=== PATIENT | male | born 1960 | race Caucasian/White ===

== ENCOUNTER → 2019-10-24 09:03 | Outpatient (REF) | payer OTHER, SELFPAY | LOC: ANHLAB 09:03 | PROVIDERS: PCP Internal Medicine; Visit Provider Nurse Practitioner | DX: R22.9 Localized swelling, mass and lump, unspecified (principal); L72.0 Epidermal cyst | CPT/HCPCS: 88304 ==

== ENCOUNTER 2019-11-09 13:03 | Outpatient (CLI) | payer OTHER, SELFPAY ==
[2019-11-09 13:49] LABS: Basophils Percent Auto 0.3 % (0.2-1.2); Eosinophils Absolute Auto 0.2 K/mm3 (0-0.3); Eosinophils Percent Auto 2.2 % (0-4.4); Hematocrit 40.8 % (42.0-52.0); Hemoglobin 13.3 g/dL (14.0-18.0); Immature Granulocyte Absolute 0.05 K/mm3 (0.00-0.031); Immature Granulocyte Percent A 0.5 % (0-0.5); Lymphocytes Absolute Auto 1.08 K/mm3 (0.9-3.2); Lymphocytes Percent Auto 11.6 % (18.3-44.2); Mean Corpuscular HGB Conc 32.6 g/dl (32-36); Mean Corpuscular Volume 91.9 fl (80-100); Mean Platelet Volume 11.1 fl (7.4-10.4); Monocytes Absolute Auto 0.8 K/mm3 (0.1-0.6); Monocytes Percent Auto 8.8 % (2.6-8.5); Neutrophils Absolute Auto 7.1 K/mm3 (1.3-6.7); Neutrophils Percent Auto 76.6 % (45.5-73.1); Platelet Count Result 231 k/mm3 (150-375); Red Blood Count 4.44 M/mm3 (4.6-6.20); Red Cell Distribution Width 15.1 % (11.5-14.5); White Blood Count 9.3 K/mm3 (4.5-10.0)
[2019-11-09 14:00] LABS: Alanine Aminotransferase 32 U/L (4-50); Albumin Level 4.3 g/dL (3.5-5.1); Alkaline Phosphatase 68 U/L (38-126); Aspartate Amino Transferase 31 U/L (17-59); Bilirubin,Total 0.8 mg/dL (0.2-1.3); Blood Urea Nitrogen 12 mg/dL (9-20); Calcium 9.6 mg/dL (8.4-10.2); Carbon Dioxide 32 mmol/L (22-30); Chloride 101 mmol/L (98-107); Cholesterol 136 mg/dL (0-200); Estimated Glomerular Filt Rate 56; Glucose 102 mg/dL (75-110); HDL Direct 36 mg/dL; Potassium 3.7 mmol/L (3.4-5.0); Sodium 140 mmol/L (137-145); Triglycerides 66 mg/dL (<150)
[2019-11-09 14:30] LABS: LDL Cholesterol Direct 97 mg/dL
[2019-11-09 16:19] LABS: Hemoglobin A1C 5.6 % (<5.7)
[2019-11-12 06:09] LABS: Homocysteine 15.1 umol/L (<11.4)
[2019-11-13 02:35] LABS: Testosterone Total 759 ng/dL (250-1100)
[2019-11-14 13:36] LABS: Vitamin D 1,25 (OH)2 Total 57 pg/mL (18-72); Vitamin D2 1,25 (OH)2 <8 pg/mL; Vitamin D3 1,25 (OH)2 57 pg/mL
--- NOTE | 2019-11-20 12:49 | PM.PNGS ---
Progress Note: A&P Assessment and Plan (1) Testicular/scrotal pain: Status: Chronic Assessment and Plan: Left scrotal mass not clearly a hernia by my exam. . I tried to transilluminate this and it did seem to transilluminate consistent with a large hydrocele. Ultrasound did not show this. I have recommended to the emergency room physician that the patient see urology for evaluation. If they feel this is just a a fatty herniation, I will be happy to see the patient back in the office. His exam is not consistent with that from my evaluation this morning. Subjective Subjective Date/Time Seen: 11/20/19 12:49 patient seen in the emergency room. About 2 weeks ago he had some dysuria which went away. He has noticed pain and swelling in the left scrotum. . The pain is mostly just above the left testicle. He came to the emergency room where a CT scan and a scrotal ultrasound were done. The CT showed a fat containing left inguinal hernia that seemed to extend down into the scrotum. The ultrasound also suggested fatty tissue extending down into the scrotum. Also seen was a small hydrocele and a varicocele. I did a right inguinal hernia on the patient in the distant past. He has had no problems with that. A fat containing right inguinal hernia was also noted on CT scan. The patient was seen in consultation while in the emergency room. . Exam : Penis: Yes normal penis Scrotum: Hydrocele present on the left ( Seems to have a large left hydrocele. Tender above the testicle.), no inguinal hernias ( No bulge associated with coughing. No hernia felt on exam.) and scrotal swelling on the left Testes: Testes normal
== END 2019-11-09 13:04 | disposition home or self-care (01) ==
LOC: ANHLAB 13:05
PROVIDERS: PCP Internal Medicine; Visit Provider Internal Medicine
DX: R79.9 Abnormal finding of blood chemistry, unspecified (principal); I10 Essential (primary) hypertension; R79.89 Other specified abnormal findings of blood chemistry; E55.9 Vitamin D deficiency, unspecified; E29.1 Testicular hypofunction; E78.2 Mixed hyperlipidemia
CPT/HCPCS: 36415; 80053; 80061; 82248; 82542; 82652; 83036; 83090; 84403; 85025

== ENCOUNTER 2019-11-20 07:02 | Emergency (ER) | payer OTHER, SELFPAY ==
[2019-11-20] VITALS (9 sets, daily range): BP systolic 133–204; BP diastolic 79–114; PULSE 55–67; RESP 15–18; TEMP 36.9; O2SAT 94–100
--- NOTE | ~2019-11-20 | CT_ITS ---
EXAMINATION: CT abdomen pelvis w con EXAM DATE: 11/20/2019 07:59 INDICATION: Left inguinal hernia. TECHNIQUE: Spiral CT of the abdomen and pelvis was performed following intravenous injection of 100 m L Omnipaque 350. Axial, coronal and sagittal images were reviewed. The dose-length product (DLP) fo r this examination was 1761.19 mGy-cm. The exposure was tailored according to patient size (auto mA exposure control), and iterative reconstruction (ASIR) was used as additional dose reduction techniqu e. There is no prior study for comparison. FINDINGS: Scattered hypodensities up to 1 cm likely cysts. Spleen, pancreas, adrenal glands are unrem arkable. Gallbladder is unremarkable. No biliary obstruction. Portal and splenic veins are patent. Kidneys enhance symmetrically. There is no hydronephrosis. There is a right renal cyst measuring 4 cm. The prostate is unremarkable. The bladder is unremarkable. There is a retroperitoneal lymph n ode between the spine and the aorta measuring 9 x 14 mm, upper limits of normal in size, unchanged co mpared to prior study. There is mild scattered arteriosclerotic disease. Small umbilical and bilater al inguinal fat-containing hernias, larger on the left. The appendix is normal. There is small sliding gastroesophageal hiatal hernia. There is expected am ount of colonic stool. There is moderate colonic diverticulosis. There is no adjacent inflammatory c hange to suggest diverticulitis. No free intraperitoneal gas. The heart is normal in size. There are no pericardial or pleural effusions. The lung bases are unremarkable. There are no osteoblastic or osteolytic lesions identified. IMPRESSION: 1. No acute intra-abdominal findings. 2. Inguinal, umbilical small fat-containing hernias. 3. Moderate colonic diverticulosis. 4. Stable retroperitoneal lymph node upper limits of normal in size Reviewed, dictated and finalized at location A.
--- NOTE | ~2019-11-20 | US_ITS ---
EXAMINATION: US scrotum doppler DATE: 11/20/2019 09:23 INDICATION: Painful scrotal mass TECHNIQUE: Testicular sonogram utilizing grayscale and Doppler COMPARISON: CT dated 11/20/2019 FINDINGS: The right testis measures 4.3 x 2.7 x 4.3 cm. The left testis measures 3.6 x 2.4 x 2.5 cm. Symmetric normal grayscale appearance to both testes. There is normal vascular flow to both testes. 10 mm anech oic cyst at the head of the right epididymis. The right epididymis is otherwise normal with normal va scular flow. The left epididymis is suboptimal visualized over the visualized portion of the epididym is is unremarkable. Prominent left varicocele with vessels measuring up to 4 mm in diameter. Small ri ght and very small left hydroceles. There is edema interspersed amongst increased amount of fat at th e caudal aspect of the inguinal canal extending to the margin of the left testis corresponding to a f at-containing left inguinal hernia on prior CT. On prior CT there is also a small fat-containing righ t inguinal hernia which does not extend caudally to the region of imaging on ultrasound. IMPRESSION: 1. 1 cm right epididymal cyst. Otherwise normal bilateral testes and epididymides. 2. Moderate-sized fat-containing left inguinal hernia. Normal testes. 3. Left varicocele. 4. Small right and very small left hydroceles. Reviewed, dictated and finalized at location A. IMPRESSION: 1. 1 cm right epididymal cyst. Otherwise normal bilateral testes and epididymid es. 2. Moderate-sized fat-containing left inguinal hernia. Normal testes. 3. Left varicocele. 4. Small right and very small left hydroceles.
--- NOTE | 2019-11-20 07:33 | ED.ABDPAIN ---
HPI - Abdominal Pain General Chief Complaint: Abdominal Pain Stated Complaint: hernia Time Seen by Provider: 11/20/19 07:23 History of Present Illness HPI narrative: Mass in the left side of his scrotum for the past 3 days. Constant. Moderate pain. worse with straining. Associated with mild intermittent nausea. He had a previous right inguinal hernia s/p repair, which caused him similar symptoms. No abdominal pain, vomiting, diarrhea, distension. He is on pradaxa for a-fib Related Data Home Medications Medication Instructions Recorded Confirmed albuterol sulfate 90 mcg/actuation 1 puff INHALATION Q4H PRN 09/04/19 aerosol inhaler fluticasone furoate 200 1 inhalation INHALATION DAILY 09/04/19 mcg-vilanterol 25 mcg/dose inhalation powder fluticasone propionate 50 2 spray NASAL DAILY 09/04/19 mcg/actuation nasal spray,suspension furosemide 80 mg tablet 80 mg PO QAM 09/04/19 hydralazine 100 mg tablet 100 mg PO TID 09/04/19 nebivolol 10 mg tablet 10 mg PO DAILY 09/04/19 potassium chloride 20 mEq 20 meq PO DAILY 09/04/19 tablet,extended release rosuvastatin 10 mg tablet 10 mg PO DAILY 09/04/19 valsartan 320 mg tablet 320 mg PO DAILY 09/04/19 Allergies Allergy/AdvReac Type Severity Reaction Status Date / Time latex Allergy Unknown Unknown Verified 10/31/19 10:24 adhesive AdvReac Mild Other Verified 10/31/19 10:24 Review of Systems Review of Systems: All systems reviewed & are unremarkable except as noted in HPI and below Constitutional: Constitutional: Denies fever(s) Eyes: Eyes: Reports no additional eye complaints ENT: Denies sore throat Cardiovascular: Cardiovascular: Denies chest pain Respiratory: Respiratory: Denies dyspnea Gastrointestinal: Gastrointestinal: Denies abdominal pain, Denies constipation, Denies diarrhea, Reports nausea and Denies vomiting Genitourinary: Genitourinary: Denies hematuria and Denies dysuria Neurologic: Denies dizziness and Denies weakness Endocrine: Endocrine: Denies fatigue Hematologic/Lymphatic: Hematologic/Lymphatic: Denies easy bleeding and Denies easy bruising PMFSH Past Medical History Medical History A-fib Abnormal finding of blood chemistry, unspecified Abscess Benign essential hypertension Body mass index (BMI) 40.0-44.9, adult Conn's syndrome Elevated homocysteine Encounter for routine adult health examination without abnormal findings Encounter for special screening examination for neoplasm of prostate Hearing loss History of CVA (cerebrovascular accident) History of kidney stones History of reduction of nasal fracture Hx of colonic polyps Hyperlipidemia Hypogonadism in male On group home drug therapy Other iron deficiency anemias Vitamin D deficiency Surgical History Surgical History History of hernia repair History of knee surgery bilateral Family History Family History Father Family history of obesity Hypertension Mother Family history of malignant neoplasm of breast in first degree relative Social History Social History Smoking status: Never smoker Alcohol intake: current Gender identity (if verbalized by the patient): Male Exam Const: General: no acute distress and alert; No ill appearing Nutritional Appearance: obese Orientation/consciousness: patient oriented x3 HENMT: Head: normal to inspection Neck: Neck: normal visual inspection Resp: Effort & Inspection: normal respiratory effort Auscultation: clear to auscultation bilaterally Cardio: Rate: regular rate Rhythm: regular rhythm GI: Inspection: non-distended GI Palp: Yes Soft to palpation and No Tenderness to palpation present (GI) : Other: Tender left sided scrotal mass with mild hyperemia of the affected side
[2019-11-20 07:38] LABS: Basophils Percent Auto 0.3 % (0.2-1.2); Eosinophils Absolute Auto 0.2 K/mm3 (0-0.3); Eosinophils Percent Auto 1.6 % (0-4.4); Hematocrit 41.2 % (42.0-52.0); Hemoglobin 13.6 g/dL (14.0-18.0); Immature Granulocyte Absolute 0.03 K/mm3 (0.00-0.031); Immature Granulocyte Percent A 0.3 % (0-0.5); Lymphocytes Percent Auto 10.4 % (18.3-44.2); Mean Corpuscular Hemoglobin 29.6 pg (26-34); Mean Corpuscular Volume 89.8 fl (80-100); Mean Platelet Volume 10.9 fl (7.4-10.4); Monocytes Percent Auto 9.3 % (2.6-8.5); Neutrophils Absolute Auto 8.3 K/mm3 (1.3-6.7); Neutrophils Percent Auto 78.1 % (45.5-73.1); Platelet Count Result 243 k/mm3 (150-375); Red Blood Count 4.59 M/mm3 (4.6-6.20); Red Cell Distribution Width 14.7 % (11.5-14.5); White Blood Count 10.6 K/mm3 (4.5-10.0)
[2019-11-20 07:43] LABS: Add Urine Microscopic? YES; Appearance Urine Clear (Clear); Bacteria Urine Trace /hpf; Bilirubin Urine Negative (Negative); Blood Urine Negative (Negative); Color Urine Yellow (Yellow); Glucose Urine UA Negative (Negative); Ketones Urine Negative (Negative); Leukocyte Esterase Ur 2+ LEU/UL (Negative); Mucus Urine Rare /lpf; Nitrate Urine Negative (Negative); Protein Urine 1+ mg/dL (Negative); Specific Grav Ur 1.014 (1.001-1.035); Squamous Epithelial Cell Urine Rare /hpf (Few); Urobilinogen Urine Negative mg/dL (<2.0); WBC Urine 31-50 /hpf
[2019-11-20 07:49] LABS: Alanine Aminotransferase 27 U/L (4-50); Albumin Level 4.4 g/dL (3.5-5.1); Alkaline Phosphatase 86 U/L (38-126); Aspartate Amino Transferase 27 U/L (17-59); Bilirubin,Total 0.9 mg/dL (0.2-1.3); Blood Urea Nitrogen 15 mg/dL (9-20); Carbon Dioxide 27 mmol/L (22-30); Chloride 104 mmol/L (98-107); Estimated CRCL calculation 65 ml/min; Estimated Glomerular Filt Rate 52; Glucose 108 mg/dL (75-110); Lipase 104 U/L (23-300); Potassium 3.3 mmol/L (3.4-5.0); Sodium 139 mmol/L (137-145)
--- NOTE | 2019-11-20 07:56 | PC.NURSE ---
PT IN CT AT THIS TIME.
[2019-11-20 07:57] LABS: Estimated CRCL calculation 65 ml/min; Estimated Glomerular Filt Rate 52
[2019-11-20 07:59] LABS: Lactic Acid Reflex 1.1 mmol/L (0.7-2.1)
[2019-11-20 08:06] LABS: INR 1.3; Prothrombin Time 15.7 Seconds (11.1-14.7)
[2019-11-20 08:07] LABS: Partial Thromboplastin Time 51.8 SECONDS (22.3-36.8)
[2019-11-20] MEDS: ONDANSETRON INJ 4 MG/2 ML VIAL IV PUSH (08:29)
--- NOTE | 2019-11-20 11:29 | PM.CNGS ---
Assessment and Plan Assessment and plan (1) Testicular/scrotal pain: Status: Chronic Assessment and Plan: The pain does not seem to be due to the left inguinal hernia noted on imaging, which is difficult to even appreciate on exam. He seems to have more significant tenderness above the testes near the epididymis and spermatic cord on my exam, which should be further evaluated by Urology. I have discussed the patient's case with Dr. Cyr, who will be evaluating the patient separately and recommended Urology to see the patient. I discussed this all with Dr. Sorenson. (2) Left inguinal hernia: Code(s): K40.90 - Unilateral inguinal hernia, without obstruction or gangrene, not specified as recurrent Status: Acute Assessment and Plan: Difficult to appreciate on exam due to the scrotal swelling and induration near the spermatic cord. This does not appear to be the cause of the patient's pain or the area of tenderness. After my exam, I do not believe the left inguinal hernia seen on the CT scan and ultrasound is what is causing his pain. I discussed this with Dr. Cyr who recommended Urology see this patient as well as he will be evaluating him independently to give his recommendations. The patient can follow-up with Dr. Cyr as an outpatient for the left inguinal hernia if this pain is felt to be due to herniation. No indication for urgent surgical intervention at this time. (3) Anticoagulant long-term use: Code(s): Z79.01 - care home (current) use of anticoagulants Status: Acute Assessment and Plan: On Pradaxa. Last taken last night around 9 pm. (4) A-fib: Qualifiers: Atrial fibrillation type: unspecified Qualified Code(s): I48.91 - Unspecified atrial fibrillation Code(s): I48.91 - Unspecified atrial fibrillation Status: Acute (5) Body mass index (BMI) 40.0-44.9, adult: Code(s): Z68.41 - Body mass index (BMI) 40.0-44.9, adult Status: Acute (6) History of CVA (cerebrovascular accident): Code(s): Z86.73 - Personal history of transient ischemic attack (TIA), and cerebral infarction without residual deficits Status: Acute (7) Chronic diastolic heart failure: Code(s): I50.32 - Chronic diastolic (congestive) heart failure Status: Acute (8) Obstructive sleep apnea treated with continuous positive airway pressure (CPAP): Code(s): G47.33 - Obstructive sleep apnea (adult) (pediatric); Z99.89 - Dependence on other enabling machines and devices Status: Acute History of Present Illness Consult details Consult date: 11/23/19 Reason for consult: other (Left inguinal hernia) Requesting physician: Juanjo Sorenson MD Narrative: This is a 59-year-old male with a history of CVA, atrial fibrillation on chronic anticoagulation therapy, hypertension, hyperlipidemia, and HERI, who presented to the emergency department today with complaints of left scrotal pain and swelling. The patient reports his symptoms started about 3-4 days ago when he noticed a gradual onset left-sided scrotal discomfort. He states that he also began to notice mostly left-sided scrotal swelling. He denies any recent heavy lifting or increase in activities. It was not a sudden onset of pain. The pain continued to worsen and is aggravated by leg movement. Pain does not change upon standing. He states it was difficult to sleep last night because he is a side sleeper and was uncomfortable throughout the night. He then decided to present to the emergency department today for further evaluation. CT scan of the abdomen and pelvis showed bilateral small fat containing inguinal hernias and an umbilical fat containing hernia. No acute intra-abdominal findings. Ultrasound of the scrotum shows a 1 cm right epididymal cyst, moderate-sized fat containing left inguinal hernia that does extend to the caudal aspect of the inguinal canal to the left testes, left varicocele, and sma
--- NOTE | 2019-11-20 13:09 | WPDURCON ---
Assessment and Plan Assessment and plan (1) Epididymitis: Code(s): N45.1 - Epididymitis Status: Acute Assessment and Plan: Patient to continue Levaquin x at least 10 days, then follow up in our office in two weeks. Use scrotal support and take NSAIDs or Tylenol for pain. Urology Consult Note HPI Date Seen: 11/20/19 Primary Care Provider: Cordell House MD Consult Narrative Narrative: Becky Jin is a 59 year old male who presented to the ER today with acute onset three days ago of a painful, edematous scrotal mass and nausea. He has a history of a right inguinal hernia repair, however the pain and edema are on the left side. He has a WBC of 10.6, creatinine of 1.40, urine culture is pending. He was given Levaquin and evaluated by general surgery to rule out a hernia, they denied a left sided inguinal hernia. His CT scan shows a small fat containing inguinal hernia and US of scrotum shows small bilateral hydroceles and an epidymal head cyst on the right measuring 1cm. Patient denies fever, chills, nausea, vomiting or radiating pain into the abdomen. He states that he has never had this before. Review of Systems Cardiovascular: Cardiovascular: Reports no additional cardiovascular complaints Respiratory: Respiratory: Reports no additional respiratory complaints Gastrointestinal: Gastrointestinal: Denies abdominal pain, Reports nausea and Denies vomiting Genitourinary: Genitourinary: Denies hematuria, Denies dysuria, Denies flank pain, Reports scrotal swelling, Reports testicular pain and Denies urinary frequency [facility] Past Medical History Medical History A-fib Chronic atrial fibrillation Abscess Perineal abscess status post I&D in August of 2018 Benign essential hypertension Body mass index (BMI) 40.0-44.9, adult Chronic diastolic heart failure Conn's syndrome Elevated homocysteine Hearing loss History of CVA (cerebrovascular accident) August of 2018 History of kidney stones History of reduction of nasal fracture Hx of colonic polyps Hyperlipidemia Hypogonadism in male Obstructive sleep apnea treated with continuous positive airway pressure (CPAP) Other iron deficiency anemias Vitamin D deficiency Surgical History Surgical History History of hernia repair Open right inguinal hernia repair with mesh estimated in 2004 History of knee surgery bilateral Family History Family History Father Family history of obesity Hypertension Mother Family history of malignant neoplasm of breast in first degree relative Social History Social History Smoking status: Never smoker Alcohol intake: current Alcohol use details: Rare. Two drinks per month. Substance use type: does not use Living arrangements: with family Additional living arrangements comments: Lives with his . Occupation/Education: other Additional occupation/education comments: Currently on disability after his stroke in August of 2018. Previously worked at [employer]. Gender identity (if verbalized by the patient): Male Meds Home Medications and Allergies Home Medications Medication Instructions Recorded Confirmed Type furosemide 80 mg tablet 80 mg PO QAM 09/04/19 History hydralazine 100 mg tablet 100 mg PO TID 09/04/19 History nebivolol 10 mg tablet 10 mg PO DAILY 09/04/19 History potassium chloride 20 mEq 20 meq PO DAILY 09/04/19 History tablet,extended release valsartan 320 mg tablet 320 mg PO DAILY 09/04/19 History dabigatran etexilate [Pradaxa] 150 mg PO BID 11/20/19 History levofloxacin [Levaquin] 500 mg PO DAILY #9 tablet 11/20/19 Rx Allergies Allergy/AdvReac Type Severity Reaction Status Date / Time latex Allergy Unknown Unknown Verified
== END 2019-11-20 12:50 | disposition home or self-care (01) ==
PROVIDERS: Emergency Provider Emergency Medicine; PCP Internal Medicine
DX: N45.1 Epididymitis (principal); E78.5 Hyperlipidemia, unspecified; E55.9 Vitamin D deficiency, unspecified; D50.9 Iron deficiency anemia, unspecified; G47.33 Obstructive sleep apnea (adult) (pediatric); I48.20 Chronic atrial fibrillation, unspecified; I50.32 Chronic diastolic (congestive) heart failure; I11.0 Hypertensive heart disease with heart failure; E26.01 Conn's syndrome; Z87.442 Personal history of urinary calculi; Z86.010 Personal history of colon polyps; Z86.73 Personal history of transient ischemic attack (TIA), and cerebral infarction without residual deficits; K40.90 Unilateral inguinal hernia, without obstruction or gangrene, not specified as recurrent; Z79.01 Long term (current) use of anticoagulants
CPT/HCPCS: 36415; 74177; 76870; 80053; 81001; 83605; 83690; 85025; 85610; 85730; 87086; 93976; 96374; 96375; 99284; A9270; J2405; J3010; Q9967

== ENCOUNTER 2020-01-06 07:12 | Inpatient (IN) | payer OTHER, SELFPAY ==
[2020-01-06] VITALS (9 sets, daily range): BP systolic 159–202; BP diastolic 69–114; PULSE 70–82; RESP 18–28; TEMP 36.6–37.1; O2SAT 95–100; BMI 38.7
--- NOTE | ~2020-01-06 | XR_ITS ---
EXAMINATION: XR cholangiogram surg 1st inj DATE: 01/08/2020 14:25 INDICATION: Intraoperative evaluation during laparoscopic cholecystectomy TECHNIQUE: Multiple fluoroscopic images of the right upper quadrant were obtained during intraoperati ve cholangiography. The amount of fluoroscopy time used during this procedure was 0.9 minutes. COMPARISON: 01/06/2020 FINDINGS: Cannulation of the cystic duct demonstrates filling of a normal appearing common bile duct which tapers smoothly distally with no intraluminal filling defects or stricture. There is reflux of some contrast into the main pancreatic duct with a subtle mobile filling defect at the duct in the he ad of the pancreas which appears to change in size and configuration to correspond to the contours of the duct which be most consistent with a gas bubble. Contrast extends into the duodenum and central intrahepatic biliary tree which also appears normal. IMPRESSION: 1. No filling defects or strictures within the common bile duct or contrast opacified central biliary tree. 2. Mobile lucent filling defect in the main pancreatic duct which appears to change in size and confi guration correspond to the contours of the duct which would favor a gas bubble over stone. Reviewed, dictated and finalized at location A. IMPRESSION: 1. No filling defects or strictures within the common bile duct or contrast opa cified central biliary tree. 2. Mobile lucent filling defect in the main pancreatic duct which appears to ch tonia in size and configuration correspond to the contours of the duct which wou ld favor a gas bubble over stone.
--- NOTE | ~2020-01-06 | CT_ITS ---
EXAMINATION: CT abdomen pelvis w con DATE: 01/06/2020 08:40 INDICATION: Upper abdominal pain and vomiting TECHNIQUE: Computed tomography (CT) of the abdomen and pelvis was performed with 100 cc Omnipaque 350 intravenous contrast. The dose-length product was 1473.71 mGy-cm. Automated exposure control and ite rative reconstruction technique were employed. COMPARISON: CT dated 11/20/2019 FINDINGS: Bibasilar dependent atelectasis. Cardiomegaly. No significant pleural or pericardial effusi on. Moderate size hiatal hernia. Mild atherosclerosis of the aorta. There is a 1.5 cm right periaorti c lymph node without significant change. Prostate gland is enlarged. Gallbladder is distended with possible gallstones. There is thickening of the gallbladder wall with p ossible pericholecystic fluid. Small fat-containing umbilical hernia. Fat-containing inguinal hernias . Multiple subcentimeter hypodensities of the liver, most likely benign cysts. There is a 4 cm right re nal cyst. IMPRESSION: 1. Gallbladder findings suspicious for cholecystitis. Correlate clinically. 2: Stable right para-aortic lymph node, likely reactive. 3: Moderate hiatal hernia. Reviewed, dictated and finalized at location A.
[2020-01-06 07:46] LABS: Basophils Percent Auto 0.2 % (0.2-1.2); Eosinophils Percent Auto 0.2 % (0-4.4); Hematocrit 45.5 % (42.0-52.0); Hemoglobin 14.9 g/dL (14.0-18.0); Immature Granulocyte Absolute 0.07 K/mm3 (0.00-0.031); Immature Granulocyte Percent A 0.5 % (0-0.5); Lymphocytes Percent Auto 6.1 % (18.3-44.2); Mean Corpuscular HGB Conc 32.7 g/dl (32-36); Mean Corpuscular Hemoglobin 29.6 pg (26-34); Mean Corpuscular Volume 90.3 fl (80-100); Mean Platelet Volume 11.7 fl (7.4-10.4); Monocytes Absolute Auto 0.4 K/mm3 (0.1-0.6); Monocytes Percent Auto 2.7 % (2.6-8.5); Neutrophils Absolute Auto 11.8 K/mm3 (1.3-6.7); Neutrophils Percent Auto 90.3 % (45.5-73.1); Platelet Count Result 260 k/mm3 (150-375); Red Blood Count 5.04 M/mm3 (4.6-6.20); Red Cell Distribution Width 14.9 % (11.5-14.5); White Blood Count 13.1 K/mm3 (4.5-10.0)
[2020-01-06 07:51] LABS: Add Urine Microscopic? YES; Appearance Urine Clear (Clear); Bilirubin Urine Negative (Negative); Blood Urine 1+ (Negative); Color Urine Yellow (Yellow); Glucose Urine UA Negative (Negative); Ketones Urine Negative (Negative); Leukocyte Esterase Ur Negative LEU/UL (Negative); Nitrate Urine Negative (Negative); Protein Urine 3+ mg/dL (Negative); Urobilinogen Urine Negative mg/dL (<2.0); WBC Urine 0-3 /hpf
[2020-01-06 07:56] LABS: Alanine Aminotransferase 28 U/L (4-50); Albumin Level 4.8 g/dL (3.5-5.1); Alkaline Phosphatase 80 U/L (38-126); Aspartate Amino Transferase 37 U/L (17-59); Blood Urea Nitrogen 17 mg/dL (9-20); Calcium 9.8 mg/dL (8.4-10.2); Carbon Dioxide 31 mmol/L (22-30); Chloride 98 mmol/L (98-107); Estimated CRCL calculation 65 ml/min; Estimated Glomerular Filt Rate 52; Glucose 172 mg/dL (75-110); Lipase 87 U/L (23-300); Sodium 141 mmol/L (137-145)
--- NOTE | 2020-01-06 08:01 | ECG_ITS ---
Measurements Intervals [place] Rate: 71 P: [place]: 0 QRS: -23 QRSD: 119 T: 60 QT: 435 QTc: 474 Interpretive Statements ATRIAL FIBRILLATION INTRAVENTRICULAR CONDUCTION DELAY DELAYED PRECORDIAL R/S TRANSITION POSSIBLE LEFT VENTRICULAR HYPERTROPHY BASELINE ARTIFACT- III, AVL, AVF, V1-V3 ABNORMAL ECG Electronically Signed On 01-06-2020 13:11:37 CDT by Brandon Johnson D.O.
[2020-01-06] MEDS: ONDANSETRON INJ 4 MG/2 ML VIAL IV PUSH (08:07)
[2020-01-06] MEDS: LACTATED RINGERS 1,000 ML 150 ML IV CONT (08:10)
[2020-01-06] MEDS: HYDROMORPHONE HCL 1 MG/ML INJ IV PUSH ×7 (08:10→21:02)
--- NOTE | 2020-01-06 08:10 | ED.ABDPAIN ---
HPI - Abdominal Pain General Chief Complaint: Abdominal Pain Stated Complaint: abdominal pain since midnight Time Seen by Provider: 01/06/20 07:36 Source: patient and family Mode of arrival: ambulatory Limitations: no limitations History of Present Illness HPI narrative: This patient is a 59 yo male with multiple medical problems who presents for evaluation of mid upper abdominal pain starting at midnight. On Wednesday, patient states he had symptoms of what he thought was the stomach flu . He has nausea with multiple episodes of vomiting at that time , but then he states his symptoms resolved. Last night around midnight patient developed severe constant pain with multiple episodes of vomiting. He ate yesterday at 4 pm but he has not eaten since then. He also reports his last bowel movement was around that time. He denies previous episodes of similar pain in the past. He denies history of pancreatitis or gallbladder disease. MD elicited complaint: abdominal pain Onset (ago): hour(s) (8) Pain Consistency: constant Severity: severe Pain scale (0-10): 9 Associated symptoms: nausea and vomiting Treatments prior to arrival: antacids Related Data Home Medications Medication Instructions Recorded Confirmed dabigatran etexilate [Pradaxa] 150 mg PO BID 01/06/20 01/06/20 Allergies Allergy/AdvReac Type Severity Reaction Status Date / Time latex Allergy Unknown Unknown Verified 01/06/20 07:28 adhesive AdvReac Mild Other Verified 01/06/20 07:28 Review of Systems Review of Systems: All systems reviewed & are unremarkable except as noted in HPI and below Constitutional: Constitutional: Denies chills, Reports fatigue, Denies fever(s) and Denies weakness ENT: Reports dizziness Cardiovascular: Cardiovascular: Denies chest pain and Denies radiating jaw, neck or arm pain Respiratory: Respiratory: Denies dyspnea Gastrointestinal: Gastrointestinal: Reports abdominal pain, Reports bloating, Denies constipation, Reports nausea and Reports vomiting Neurologic: Denies dizziness and Denies weakness [facility] Past Medical History Medical History (Updated 01/06/20 @ 19:20 by Danielle Anglin MD) A-fib Chronic atrial fibrillation Abscess Perineal abscess status post I&D in August of 2018 Benign essential hypertension Body mass index (BMI) 40.0-44.9, adult Chronic diastolic heart failure Conn's syndrome HYPERALDOSTERONISM Elevated homocysteine Hearing loss History of CVA (cerebrovascular accident) August of 2018 History of kidney stones History of reduction of nasal fracture Hx of colonic polyps Hyperlipidemia Hypogonadism in male Obstructive sleep apnea treated with continuous positive airway pressure (CPAP) Other iron deficiency anemias Vitamin D deficiency Surgical History Surgical History (Updated 01/06/20 @ 14:12 by Dennis Gilman MD) History of hernia repair Open right inguinal hernia repair with mesh estimated in 2004 History of knee surgery bilateral Hx of colonoscopy Family History Family History (Updated 01/06/20 @ 14:13 by Dennis Gilman MD) Father Family history of obesity Hypertension Esophageal cancer Mother Family history of malignant neoplasm of breast in first degree relative Social History Social History (Updated 01/06/20 @ 14:13 by Dennis Gilman MD) Smoking status: Never smoker Alcohol intake: current Alcohol use details: Occasional alcohol, rare in recent years Substance use: never Substance use type: does not use Living arrangements: with family Additional living arrangements comments: Lives with his . Additional occupation/education comments: Currently on disability after his stroke in August of 2018. Previously worked at [employer]. Gender identity (if verbalized by the patient): Male Spiritual care concerns: No Agree to blood products: Yes Exam Const: General: alert Orientation/consciousness:
[2020-01-06 08:25] LABS: Magnesium 2.1 mg/dL (1.6-2.3)
[2020-01-06 08:39] LABS: Lactic Acid Reflex 1.5 mmol/L (0.7-2.1)
[2020-01-06] MEDS: hydrALAZINE HCL 20 MG/ML VIAL IV PUSH (09:46)
[2020-01-06] MEDS: KCL 20 MEQ/SW 100 ML 100 ML 50 MEQ IVPB (10:51)
[2020-01-06] MEDS: hydrALAZINE HCL 50 MG TABLET 100 MG PO (11:04)
[2020-01-06] MEDS: VALSARTAN 160 MG TABLET 320 MG PO (11:04)
--- NOTE | 2020-01-06 11:18 | ADMGEN ---
This patient, Becky Jin, was admitted to Medical Room 258-. Patient/family oriented to hospital policies and general routines including ID bracelet, bed and alarms, visiting hours, pain management, procedures, bathroom and other care routines, personal items, smoking policy, room service/diet, and visiting hours. Valuables list has been completed. Information on how to activate the Rapid Response Team has been discussed. Patient/Family are encouraged to report perceived risks to care and to ask questions if they do not understand what they are told or what they should do.
[2020-01-06] MEDS: PROCHLORPERAZINE EDISYLATE 10 MG/2 ML VIAL IV PUSH (11:32)
--- NOTE | 2020-01-06 12:42 | PM.IMHP ---
H&P: HPI History of Present Illness Chief complaint: acute cholecystitis,hypertension Narrative: Becky Jin is a 59 year old male was in his usual state of health until 12:00 a.m. on 01/05. He supper about 4:00 p.m.. Was about rated go to bed near midnight. Just after midnight began having severe epigastric pain associated with nausea vomiting 3-4 times. Pain was persistent deep aching. Severe. No radiation. Persisted until we reached the emergency room sometime after 3:00 a.m.. Relieved with narcotics and anti emetics was partial. He denies similar pain in the past. Denied indigestion or heartburn prior to this. No recent change in stools or appetite. No recent weight loss or weight gain. Denied chest pain or shortness of breath or swelling. Denied abnormal bleeding. Does take Pradaxa twice daily for atrial fibrillation. He was unable to tolerate his p.m. dose at bedtime 5/1 due to nausea vomiting. Therefore his last dose of Pradaxa was 5/1 in the morning. Review of Systems Review of Systems: All systems reviewed & are unremarkable except as noted in HPI and below PMFSH Past Medical History Medical History (Updated 01/06/20 @ 14:19 by Dennis Gilman MD) A-fib Chronic atrial fibrillation Abscess Perineal abscess status post I&D in August of 2018 Benign essential hypertension Body mass index (BMI) 40.0-44.9, adult Chronic diastolic heart failure Conn's syndrome HYPERALDOSTERONISM Elevated homocysteine Hearing loss History of CVA (cerebrovascular accident) August of 2018 History of kidney stones History of reduction of nasal fracture Hx of colonic polyps Hyperlipidemia Hypogonadism in male Obstructive sleep apnea treated with continuous positive airway pressure (CPAP) Other iron deficiency anemias Vitamin D deficiency Surgical History Surgical History (Updated 01/06/20 @ 14:12 by Dennis Gilman MD) History of hernia repair Open right inguinal hernia repair with mesh estimated in 2004 History of knee surgery bilateral Hx of colonoscopy Family History Family History (Updated 01/06/20 @ 14:13 by Dennis Gilman MD) Father Family history of obesity Hypertension Esophageal cancer Mother Family history of malignant neoplasm of breast in first degree relative Social History Social History (Updated 01/06/20 @ 14:13 by Dennis Gilman MD) Smoking status: Never smoker Alcohol intake: current Alcohol use details: Occasional alcohol, rare in recent years Substance use: never Substance use type: does not use Living arrangements: with family Additional living arrangements comments: Lives with his . Additional occupation/education comments: Currently on disability after his stroke in August of 2018. Previously worked at [employer]. Gender identity (if verbalized by the patient): Male Spiritual care concerns: No Agree to blood products: Yes Meds Home Medications and Allergies Home Medications Medication Instructions Recorded Confirmed Type valsartan 320 mg tablet 320 mg PO DAILY #90 tablet 11/20/19 01/06/20 Rx furosemide 80 mg tablet 80 mg PO BID #180 tablet 11/27/19 01/06/20 Rx hydralazine 100 mg tablet 100 mg PO TID #270 tablet 12/19/19 01/06/20 Rx nebivolol 10 mg tablet 10 mg PO DAILY #90 tablet 12/19/19 01/06/20 Rx potassium chloride 20 mEq See Rx Instructions PO DAILY #450 12/19/19 01/06/20 Rx tablet,extended release tablet testosterone 20.25 mg/1.25 gram 4 pump TOPICAL DAILY #176 gm 12/19/19 01/06/20 Rx (1.62 %) transdermal gel pump dabigatran etexilate [Pradaxa] 150 mg PO BID 01/06/20 01/06/20 History Allergies Allergy/AdvReac Type Severity Reaction Status Date / Time latex Allergy Unknown Unknown Verified 01/06/20 07:28 adhesive AdvReac Mild Other Verified 01/06/20 07:28 Vital Signs Vital Signs - 24 hr 01/06/20 07:24 01/06/20 09:38 01/06/20 10:36 Temperature 98.7 F Pulse Rate 72 74 72 Respi
[2020-01-06 15:37] LABS: Basophils Percent Auto 0.2 % (0.2-1.2); Eosinophils Percent Auto 0.1 % (0-4.4); Hematocrit 43.8 % (42.0-52.0); Hemoglobin 14.3 g/dL (14.0-18.0); Immature Granulocyte Absolute 0.08 K/mm3 (0.00-0.031); Immature Granulocyte Percent A 0.4 % (0-0.5); Lymphocytes Absolute Auto 0.76 K/mm3 (0.9-3.2); Lymphocytes Percent Auto 4.1 % (18.3-44.2); Mean Corpuscular HGB Conc 32.6 g/dl (32-36); Mean Corpuscular Hemoglobin 29.5 pg (26-34); Mean Corpuscular Volume 90.3 fl (80-100); Mean Platelet Volume 11.5 fl (7.4-10.4); Monocytes Absolute Auto 1.8 K/mm3 (0.1-0.6); Monocytes Percent Auto 9.8 % (2.6-8.5); Neutrophils Percent Auto 85.4 % (45.5-73.1); Platelet Count Result 228 k/mm3 (150-375); Red Blood Count 4.85 M/mm3 (4.6-6.20); White Blood Count 18.7 K/mm3 (4.5-10.0)
[2020-01-06] MEDS: HEPARIN SOD/D5W 100 UNITS/ML 25,000 UNITS/250 ML BAG 15 UNITS IV CONT (15:45)
[2020-01-06 15:47] LABS: INR 1.2; Prothrombin Time 14.6 Seconds (11.1-14.7)
[2020-01-06 15:48] LABS: Partial Thromboplastin Time 36.5 SECONDS (22.3-36.8)
[2020-01-06 15:49] LABS: Blood Urea Nitrogen 14 mg/dL (9-20); Calcium 9.1 mg/dL (8.4-10.2); Carbon Dioxide 30 mmol/L (22-30); Chloride 101 mmol/L (98-107); Estimated CRCL calculation 74 ml/min; Estimated Glomerular Filt Rate > 60; Glucose 139 mg/dL (75-110); Magnesium 1.9 mg/dL (1.6-2.3); Potassium 2.9 mmol/L (3.4-5.0); Sodium 140 mmol/L (137-145)
--- NOTE | 2020-01-06 15:59 | PM.CNGS ---
Assessment and Plan Assessment and plan (1) Acute cholecystitis: Onset Date: ~01/06/20 Code(s): K81.0 - Acute cholecystitis Status: Acute Assessment and Plan: Have discussed the situation with the patient. His CT scan shows apparent acute cholecystitis. Therefore, since he is on anticoagulation and has atrial fibrillation. It's probably ideal for us to take care of this during this admission. We have started antibiotics and I believe this is important. I have also discussed with the patient the risks, benefits, and possible complications of a laparoscopic, possible open cholecystectomy. At the time of doing this I will most likely do a intraoperative cholangiogram to prove there are no common bile duct stones. Will recheck his liver function tests for the next couple days to be sure that these do not increase. Also recheck a lipase in a.m.. For now will let the Pradaxa wear off and begin planning for possible laparoscopic cholecystectomy with intraoperative cholangiogram on Wednesday01/08/2020. (2) Secondary hypertension, unspecified: Code(s): I15.9 - Secondary hypertension, unspecified Status: Acute Assessment and Plan: medications as per home and per hospitalist changes. (3) Obstructive sleep apnea treated with continuous positive airway pressure (CPAP): Code(s): G47.33 - Obstructive sleep apnea (adult) (pediatric); Z99.89 - Dependence on other enabling machines and devices Status: Acute Assessment and Plan: Patient to wear CPAP at night. 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 (5) Vitamin D deficiency: Code(s): E55.9 - Vitamin D deficiency, unspecified Status: Acute Assessment and Plan: He can resume this at home after surgery. (6) History of CVA (cerebrovascular accident): Code(s): Z86.73 - Personal history of transient ischemic attack (TIA), and cerebral infarction without residual deficits Status: Acute Assessment and Plan: No specific precautions regarding this. (7) Body mass index (BMI) 40.0-44.9, adult: Code(s): Z68.41 - Body mass index (BMI) 40.0-44.9, adult Status: Acute Assessment and Plan: Have discussed low-fat diet with the patient will encourage him to stay on this after his discharge. (8) A-fib: Qualifiers: Atrial fibrillation type: unspecified Qualified Code(s): I48.91 - Unspecified atrial fibrillation Code(s): I48.91 - Unspecified atrial fibrillation Status: Acute Assessment and Plan: Monitor rate and continue medications other than anticoagulation so that we can proceed with OR possibly on Wednesday. (9) 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 - Conn's syndrome Status: Acute Assessment and Plan: Continue current therapy. (10) Umbilical hernia: Code(s): K42.9 - Umbilical hernia without obstruction or gangrene Status: Acute Assessment and Plan: Will plan to repair as we finish laparoscopic cholecystectomy. History of Present Illness Consult details Consult date: 01/07/20 Reason for consult: abdominal pain Requesting physician: Dennis Gilman MD Narrative: Mr. Becky Jin is a 59 year old white male who was in his usual state of health until 12:00 a.m. on 01/05. He ate supper about 4:00 p.m. yesterday. He was about ready go to bed near midnight. Just after midnight he began having severe epigastric pain associated with nausea vomiting 3-4 times. Pain was a persistent deep aching. Severe. No radiation. This persisted until he reached the emergency room sometime after 3:00 a.m.. The pain was relieved with narcotics and anti emetics, but only was partial. He denies similar pain in the past. Denied indigestion or heartburn prior to this
[2020-01-06 21:38] LABS: Partial Thromboplastin Time 63.7 SECONDS (22.3-36.8)
[2020-01-06] MEDS: HEPARIN SODIUM 5,000 UNITS/ML VIAL 3500 UNITS IV PUSH (22:10)
[2020-01-07] VITALS (11 sets, daily range): BP systolic 147–172; BP diastolic 86–107; PULSE 72–101; RESP 16–20; TEMP 36.6–36.8; O2SAT 95–98
[2020-01-07] MEDS: HYDROMORPHONE HCL 1 MG/ML INJ IV PUSH ×7 (00:16→23:48)
[2020-01-07] MEDS: HEPARIN SOD/D5W 100 UNITS/ML 25,000 UNITS/250 ML BAG 17 UNITS IV CONT ×2 (04:11→20:34)
[2020-01-07 04:38] LABS: Basophils Absolute Auto 0.1 K/mm3 (0.0-0.1); Basophils Percent Auto 0.3 % (0.2-1.2); Eosinophils Absolute Auto 0.1 K/mm3 (0-0.3); Eosinophils Percent Auto 0.4 % (0-4.4); Hematocrit 40.8 % (42.0-52.0); Hemoglobin 13.2 g/dL (14.0-18.0); Immature Granulocyte Absolute 0.12 K/mm3 (0.00-0.031); Immature Granulocyte Percent A 0.6 % (0-0.5); Lymphocytes Absolute Auto 0.96 K/mm3 (0.9-3.2); Mean Corpuscular HGB Conc 32.4 g/dl (32-36); Mean Corpuscular Hemoglobin 29.4 pg (26-34); Mean Corpuscular Volume 90.9 fl (80-100); Mean Platelet Volume 12.1 fl (7.4-10.4); Monocytes Absolute Auto 2.5 K/mm3 (0.1-0.6); Neutrophils Absolute Auto 15.7 K/mm3 (1.3-6.7); Neutrophils Percent Auto 80.7 % (45.5-73.1); Platelet Count Result 226 k/mm3 (150-375); Red Blood Count 4.49 M/mm3 (4.6-6.20); Red Cell Distribution Width 15.4 % (11.5-14.5); White Blood Count 19.4 K/mm3 (4.5-10.0)
[2020-01-07 04:52] LABS: Partial Thromboplastin Time 102.9 SECONDS (22.3-36.8)
[2020-01-07 04:54] LABS: Alanine Aminotransferase 21 U/L (4-50); Albumin Level 4.1 g/dL (3.5-5.1); Alkaline Phosphatase 58 U/L (38-126); Aspartate Amino Transferase 32 U/L (17-59); Bilirubin,Total 1.9 mg/dL (0.2-1.3); Blood Urea Nitrogen 17 mg/dL (9-20); Calcium 8.6 mg/dL (8.4-10.2); Carbon Dioxide 30 mmol/L (22-30); Chloride 98 mmol/L (98-107); Estimated CRCL calculation 60 ml/min; Estimated Glomerular Filt Rate 48; Glucose 117 mg/dL (75-110); Lipase 269 U/L (23-300); Sodium 136 mmol/L (137-145)
[2020-01-07] MEDS: LABETALOL HCL INJ 100 MG/20 ML VIAL 20 MG IV PUSH ×2 (05:16→15:20)
--- NOTE | 2020-01-07 10:10 | PM.PNGS ---
Progress Note: A&P Assessment and Plan (1) Acute cholecystitis: Onset Date: ~01/06/20 Code(s): K81.0 - Acute cholecystitis Status: Acute Assessment and Plan: To proceed with operative intervention tomorrow at approximately noon. I have discussed the risks, benefits, and possible complications of the procedure with the patient. These include bleeding, infection, possible injury to surrounding organs. He knows I will try to do a cholangiogram and will also plan to try and fix his umbilical hernia at the time of the surgery. All questions were answered he will continue to work on his incentive spirometry and where his SCD hose today. He did have 1 bowel movement this morning will ask him to try to another prior to surgery in if not take a suppository or fleets enema tonight. (2) Umbilical hernia: Onset Date: Unknown Code(s): K42.9 - Umbilical hernia without obstruction or gangrene Status: Acute Assessment and Plan: Planned repair with sutures at the time surgery. (3) Hypertension: Onset Date: Unknown Code(s): I10 - Essential (primary) hypertension Status: Acute Assessment and Plan: Appears to be well controlled. Appreciate medicines help. (4) Chronic diastolic heart failure: Onset Date: Unknown Code(s): I50.32 - Chronic diastolic (congestive) heart failure Status: Acute Assessment and Plan: On heparin for now will stop heparin several hours before surgery which is scheduled for noon tomorrow. (5) Obstructive sleep apnea treated with continuous positive airway pressure (CPAP): Onset Date: Unknown Code(s): G47.33 - Obstructive sleep apnea (adult) (pediatric); Z99.89 - Dependence on other enabling machines and devices Status: Acute Assessment and Plan: Using CPAP all here. He feels somewhat sleep deprived. (6) Left inguinal hernia: Onset Date: Unknown Code(s): K40.90 - Unilateral inguinal hernia, without obstruction or gangrene, not specified as recurrent Status: Acute Assessment and Plan: Inspect both groins at the time of surgery and documented. (7) Anticoagulant long-term use: Onset Date: Unknown Code(s): Z79.01 - [facility] (current) use of anticoagulants Status: Acute Assessment and Plan: He has a on Pradaxa. On heparin drip for now. Will hold anticoagulation around the time his surgery tomorrow. (8) Hx of colonic polyps: Onset Date: Unknown Code(s): Z86.010 - Personal history of colonic polyps Status: Acute (9) Body mass index (BMI) 40.0-44.9, adult: Onset Date: Unknown Code(s): Z68.41 - Body mass index (BMI) 40.0-44.9, adult Status: Acute Assessment and Plan: Will encourage patient to stand a low-fat diet after surgery and lose weight. Patient feels only like clear liquids today. Will make him NPO at midnight for surgery. (10) A-fib: Onset Date: Unknown Qualifiers: Atrial fibrillation type: unspecified Qualified Code(s): I48.91 - Unspecified atrial fibrillation Code(s): I48.91 - Unspecified atrial fibrillation Status: Acute Assessment and Plan: Pre shaped medicines help in controlling rate. Subjective Subjective Date/Time Seen: 01/07/20 10:10 Patient trying to sleep with CPAP on when I entered the room. States that pain has become a dull ache in the right upper quadrant. Tolerating clear liquids and does not want more than that right now. I answered his questions and informed that surgery is scheduled for approximately noon dinah Review of Systems Constitutional: Constitutional: Reports no additional constitutional complaints ENT: Reports other (Mucous Membranes moist.) Cardiovascular: Cardiovascular: Denies dyspnea Respiratory: Respiratory: Denies pain on inspiration and Denies dyspnea Musculoskeletal: Musculoskeletal: Rep
[2020-01-07 10:33] LABS: Partial Thromboplastin Time 96.5 SECONDS (22.3-36.8)
--- NOTE | 2020-01-07 11:28 | P.PNIM_ITS ---
Progress Note: A&P Assessment and Plan (1) Acute cholecystitis: Onset Date: ~01/06/20 Code(s): K81.0 - Acute cholecystitis Status: Acute Assessment and Plan: * Zosyn day 2 * Bowel rest * Dr. Hazel (surgery) following * Analgesics and anti emetics * IV fluid (2) A-fib: Onset Date: Unknown Qualifiers: Atrial fibrillation type: unspecified Qualified Code(s): I48.91 - Unspecified atrial fibrillation Code(s): I48.91 - Unspecified atrial fibrillation Status: Acute Assessment and Plan: * Hold Pradaxa * Bridge with heparin due to high risk for recurrent stroke * Stop heparin at 0100 on 01/07 * Should be able to proceed with surgery 01/07 as planned (3) Hypokalemia: Code(s): E87.6 - Hypokalemia Status: Acute Assessment and Plan: * IV supplementation * F/u lab (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 Status: Acute Assessment and Plan: * This likely accounts for his hypokalemia and at least a protion of his hbp (5) History of CVA (cerebrovascular accident): Code(s): Z86.73 - Personal history of transient ischemic attack (TIA), and cerebral infarction without residual deficits Status: Acute Assessment and Plan: * 2018 * Minimal residual deficit, mainly slowed mentation (6) Secondary hypertension, unspecified: Code(s): I15.9 - Secondary hypertension, unspecified Status: Acute Assessment and Plan: * Hx hyperaldosteronism (7) Chronic diastolic heart failure: Onset Date: Unknown Code(s): I50.32 - Chronic diastolic (congestive) heart failure Status: Acute Assessment and Plan: * Clinically euvolemic (8) Obstructive sleep apnea treated with continuous positive airway pressure (CPAP): Onset Date: Unknown Code(s): G47.33 - Obstructive sleep apnea (adult) (pediatric); Z99.89 - Dependence on other enabling machines and devices Status: Acute Assessment and Plan: * CPAP while sleeping (9) Anticoagulant long-term use: Onset Date: Unknown Code(s): 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 Much less epigastric to RUQ pain. No n/v. Bowels moved. Tolerating clear liquids. Denied chest pain, sob, edema. Denied dysuria. Denied abnormal bleeding. Review of Systems Review of Systems: All systems reviewed & are unremarkable except as noted in HPI and below Exam Narrative: Exam Narrative: HEENT: EOMI, PERRL, sclerae nonicteric, pharyngeal mucosa pink and intact NECK: No JVD, adenopathy, or thyromegaly CHEST: Clear to auscultation. Normal effort. HEART: NL S1/S2, regular, no murmur ABDOMEN: BS+, soft, tender epigastrium to right upper quadrant, no mass, no bruits EXTREMITIES: No cyanosis, edema, or clubbing NEUROLOGIC: CN intact and symmetric to inspection. MUSCULOSKELETAL: Tone and strength symmetric. PSYCH: Alert. Oriented to person, place, and time. Objective Data Vital Signs Vit
--- NOTE | 2020-01-07 11:28 | PM.IMPN ---
Progress Note: A&P Assessment and Plan (1) Acute cholecystitis: Onset Date: ~01/06/20 Code(s): K81.0 - Acute cholecystitis Status: Acute Assessment and Plan: Zosyn day [address] Hazel (surgery) following Analgesics and anti emetics IV fluid (2) A-fib: Onset Date: Unknown Qualifiers: Atrial fibrillation type: unspecified Qualified Code(s): I48.91 - Unspecified atrial fibrillation Code(s): I48.91 - Unspecified atrial fibrillation Status: Acute Assessment and Plan: Hold Pradaxa Bridge with heparin due to high risk for recurrent stroke Stop heparin at 0100 on 01/07 Should be able to proceed with surgery 01/07 as planned (3) Hypokalemia: Code(s): E87.6 - Hypokalemia Status: Acute Assessment and Plan: IV supplementation F/u lab (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 Status: Acute Assessment and Plan: This likely accounts for his hypokalemia and at least a protion of his hbp (5) History of CVA (cerebrovascular accident): Code(s): Z86.73 - Personal history of transient ischemic attack (TIA), and cerebral infarction without residual deficits Status: Acute Assessment and Plan: 2018 Minimal residual deficit, mainly slowed mentation (6) Secondary hypertension, unspecified: Code(s): I15.9 - Secondary hypertension, unspecified Status: Acute Assessment and Plan: Hx hyperaldosteronism (7) Chronic diastolic heart failure: Onset Date: Unknown Code(s): I50.32 - Chronic diastolic (congestive) heart failure Status: Acute Assessment and Plan: Clinically euvolemic (8) Obstructive sleep apnea treated with continuous positive airway pressure (CPAP): Onset Date: Unknown Code(s): G47.33 - Obstructive sleep apnea (adult) (pediatric); Z99.89 - Dependence on other enabling machines and devices Status: Acute Assessment and Plan: CPAP while sleeping (9) Anticoagulant long-term use: Onset Date: Unknown Code(s): Z79.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 Much less epigastric to RUQ pain. No n/v. Bowels moved. Tolerating clear liquids. Denied chest pain, sob, edema. Denied dysuria. Denied abnormal bleeding. Review of Systems Review of Systems: All systems reviewed & are unremarkable except as noted in HPI and below Exam Narrative: Exam Narrative: HEENT: EOMI, PERRL, sclerae nonicteric, pharyngeal mucosa pink and intact NECK: No JVD, adenopathy, or thyromegaly CHEST: Clear to auscultation. Normal effort. HEART: NL S1/S2, regular, no murmur ABDOMEN: BS+, soft, tender epigastrium to right upper quadrant, no mass, no bruits EXTREMITIES: No cyanosis, edema, or clubbing NEUROLOGIC: CN intact and symmetric to inspection. MUSCULOSKELETAL: Tone and strength symmetric. PSYCH: Alert. Oriented to person, place, and time. Objective Data Vital Signs Vital Signs: Vital Signs - 24 hr 01/06/20 12:00 01/06/20 14:00 01/06/20 16:00 Temperature 97.8 F Pulse Rate 82 82 78 Respiratory Rate 28 H Blood Pressure 159/69 H Pulse Oximetry 96 01/06/20 20:00 01/06/20 22:00 01/07/20 00:00 Temperature 98.6 F Pulse Rate 70 76 79 Respiratory Rate 22 H Blood Pressure 178/89 H Pulse Oximetry 95 01/07/20 04:00 01/07/20 05:16 01/07/20 06:00 Temperature 98.3 F Pulse Rate 72 87 Respiratory Rate 20 Blood Pressure 169/107 H 147/86 H Pulse Oximetry 97
[2020-01-07 16:19] LABS: Blood Urea Nitrogen 14 mg/dL (9-20); Calcium 8.5 mg/dL (8.4-10.2); Carbon Dioxide 30 mmol/L (22-30); Chloride 97 mmol/L (98-107); Estimated CRCL calculation 69 ml/min; Estimated Glomerular Filt Rate 56; Glucose 127 mg/dL (75-110); Magnesium 1.8 mg/dL (1.6-2.3); Potassium 3.1 mmol/L (3.4-5.0); Sodium 135 mmol/L (137-145)
[2020-01-07] MEDS: polyethylene glycoL 3350 17 GM POWD.PACK PO (17:17)
[2020-01-07] MEDS: BISACODYL 10 MG SUPPOSITORY RECTAL (20:37)
[2020-01-08] VITALS (12 sets, daily range): BP systolic 132–170; BP diastolic 73–97; PULSE 78–94; RESP 14–25; TEMP 36.2–37.3; O2SAT 90–97
[2020-01-08] MEDS: HYDROMORPHONE HCL 1 MG/ML INJ IV PUSH ×3 (05:06→17:42)
[2020-01-08 05:08] LABS: Basophils Percent Auto 0.2 % (0.2-1.2); Eosinophils Absolute Auto 0.2 K/mm3 (0-0.3); Hematocrit 35.6 % (42.0-52.0); Hemoglobin 11.6 g/dL (14.0-18.0); Immature Granulocyte Percent A 0.6 % (0-0.5); Lymphocytes Absolute Auto 1.09 K/mm3 (0.9-3.2); Lymphocytes Percent Auto 6.3 % (18.3-44.2); Mean Corpuscular HGB Conc 32.6 g/dl (32-36); Mean Corpuscular Hemoglobin 29.2 pg (26-34); Mean Corpuscular Volume 89.7 fl (80-100); Mean Platelet Volume 11.4 fl (7.4-10.4); Monocytes Absolute Auto 1.9 K/mm3 (0.1-0.6); Monocytes Percent Auto 11.2 % (2.6-8.5); Neutrophils Percent Auto 80.7 % (45.5-73.1); Platelet Count Result 181 k/mm3 (150-375); Red Blood Count 3.97 M/mm3 (4.6-6.20); Red Cell Distribution Width 15.3 % (11.5-14.5); White Blood Count 17.4 K/mm3 (4.5-10.0)
[2020-01-08 05:16] LABS: Partial Thromboplastin Time 126.9 SECONDS (22.3-36.8)
[2020-01-08 05:32] LABS: Alanine Aminotransferase 21 U/L (4-50); Albumin Level 3.7 g/dL (3.5-5.1); Alkaline Phosphatase 65 U/L (38-126); Aspartate Amino Transferase 34 U/L (17-59); Bilirubin,Total 2.1 mg/dL (0.2-1.3); Blood Urea Nitrogen 14 mg/dL (9-20); Calcium 8.2 mg/dL (8.4-10.2); Carbon Dioxide 32 mmol/L (22-30); Chloride 96 mmol/L (98-107); Estimated CRCL calculation 64 ml/min; Estimated Glomerular Filt Rate 52; Glucose 106 mg/dL (75-110); Potassium 2.8 mmol/L (3.4-5.0); Sodium 134 mmol/L (137-145)
[2020-01-08 07:06] LABS: Magnesium 1.7 mg/dL (1.6-2.3)
--- NOTE | 2020-01-08 07:46 | PC.NURSE ---
Spoke wt Dr Hazel in regards to heparin gtt. He asked that we stop Heparin gtt this morning in preperation for surgery but to confirm with Dr Gilman prior to stopping. Spoke with Dr Gilman and Heparin gtt stopped at [address] Alicea Orders.
[2020-01-08] MEDS: MAGNESIUM SULF 1 GM/D5W 100 ML 1 GM/100 ML BAG IVPB (08:19)
--- NOTE | 2020-01-08 10:07 | P.HPUP_ITS ---
History and Physical Update Update Date/Time: 01/08/20 10:07 History and Physical has been reviewed, including an updated exam of the patient. There are changes in the patient's condition. Patient has been off oral anticoagulation for almost 3 days. He has been receiving a heparin drip. That was stopped at 8:00 a.m. this morning. His potassium was low this morning and that has been replenished. Risks, benefits, and alternatives of a laparoscopic possible open cholecyst ectomy with cholangiogram have been discussed and questions answered. Patient agrees to proceed with procedure. Understands that because of the continuing inflammation may be difficult. He understands the because his bilirubin is slightly up that he may have a common duct stone. We will try to do a cholangiogram to prove whether this is present or not. He recognizes increased risk for the procedure in view of his multiple medical comorbidities.
[2020-01-08 10:59] LABS: Potassium 2.9 mmol/L (3.4-5.0)
[2020-01-08 11:02] LABS: Blood Urea Nitrogen 14 mg/dL (9-20); Carbon Dioxide 33 mmol/L (22-30); Chloride 97 mmol/L (98-107); Estimated CRCL calculation 64 ml/min; Estimated Glomerular Filt Rate 52; Glucose 98 mg/dL (75-110); Potassium 2.9 mmol/L (3.4-5.0); Sodium 135 mmol/L (137-145)
--- NOTE | 2020-01-08 11:28 | P.PNIM_ITS ---
Progress Note: A&P Assessment and Plan (1) Acute cholecystitis: Onset Date: ~01/06/20 Code(s): K81.0 - Acute cholecystitis Status: Acute Assessment and Plan: * Zosyn day 3 * Analgesics and anti emetics * IV fluid * NPO for surgery this PM * Off heparin 0730 (2) A-fib: Onset Date: Unknown Qualifiers: Atrial fibrillation type: unspecified Qualified Code(s): I48.91 - Unspecified atrial fibrillation Code(s): I48.91 - Unspecified atrial fibrillation Status: Acute Assessment and Plan: * Hold Pradaxa * Bridged with heparin due to high risk for recurrent stroke * Stop heparin at 0100 on 01/07 (actually stopped later this AM due to IT issue) * Medically stable for planned lap justin this PM (3) Hypokalemia: Code(s): E87.6 - Hypokalemia Status: Acute Assessment and Plan: * IV supplementation x 2 this AM * Resistant hypokalemia likely due to hx hyperaldosteronism * Start spironolactone post op (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 Status: Acute Assessment and Plan: * This likely accounts for his hypokalemia and at least a protion of his hbp (5) History of CVA (cerebrovascular accident): Code(s): Z86.73 - Personal history of transient ischemic attack (TIA), and cerebral infarction without residual deficits Status: Acute Assessment and Plan: * 2018 * Minimal residual deficit, mainly slowed mentation (6) Secondary hypertension, unspecified: Code(s): I15.9 - Secondary hypertension, unspecified Status: Acute Assessment and Plan: * Hx hyperaldosteronism (7) Chronic diastolic heart failure: Onset Date: Unknown Code(s): I50.32 - Chronic diastolic (congestive) heart failure Status: Acute Assessment and Plan: * Clinically euvolemic (8) Obstructive sleep apnea treated with continuous positive airway pressure (CPAP): Onset Date: Unknown Code(s): G47.33 - Obstructive sleep apnea (adult) (pediatric); Z99.89 - Dependence on other enabling machines and devices Status: Acute Assessment and Plan: * CPAP while sleeping (9) Anticoagulant long-term use: Onset Date: Unknown Code(s): 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 Much less epigastric to RUQ pain. Mild to moderate aching. No n/v. Bowels moved. Denied chest pain, sob, edema. Denied dysuria. Denied abnormal bleeding. Review of Systems Review of Systems: All systems reviewed & are unremarkable except as noted in HPI and below Exam Narrative: Exam Narrative: HEENT: EOMI, PERRL, sclerae nonicteric, pharyngeal mucosa pink and intact NECK: No JVD, adenopathy, or thyromegaly CHEST: Clear to auscultation. Normal effort. HEART: NL S1/S2, regular, no murmur ABDOMEN: BS+, soft, tender epigastrium to right upper quadrant, no mass, no bruits EXTREMITIES: No cyanosis, edema, or clubbing NEUROLOGIC: CN intact and symmetric to inspection. MUSCULOSKELETAL: T
--- NOTE | 2020-01-08 11:28 | PM.IMPN ---
Progress Note: A&P Assessment and Plan (1) Acute cholecystitis: Onset Date: ~01/06/20 Code(s): K81.0 - Acute cholecystitis Status: Acute Assessment and Plan: Zosyn day 3 Analgesics and anti emetics IV fluid NPO for surgery this PM Off heparin 0730 (2) A-fib: Onset Date: Unknown Qualifiers: Atrial fibrillation type: unspecified Qualified Code(s): I48.91 - Unspecified atrial fibrillation Code(s): I48.91 - Unspecified atrial fibrillation Status: Acute Assessment and Plan: Hold Pradaxa Bridged with heparin due to high risk for recurrent stroke Stop heparin at 0100 on 01/07 (actually stopped later this AM due to IT issue) Medically stable for planned lap justin this PM (3) Hypokalemia: Code(s): E87.6 - Hypokalemia Status: Acute Assessment and Plan: IV supplementation x 2 this AM Resistant hypokalemia likely due to hx hyperaldosteronism Start spironolactone post op (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 Status: Acute Assessment and Plan: This likely accounts for his hypokalemia and at least a protion of his hbp (5) History of CVA (cerebrovascular accident): Code(s): Z86.73 - Personal history of transient ischemic attack (TIA), and cerebral infarction without residual deficits Status: Acute Assessment and Plan: 2017 Minimal residual deficit, mainly slowed mentation (6) Secondary hypertension, unspecified: Code(s): I15.9 - Secondary hypertension, unspecified Status: Acute Assessment and Plan: Hx hyperaldosteronism (7) Chronic diastolic heart failure: Onset Date: Unknown Code(s): I50.32 - Chronic diastolic (congestive) heart failure Status: Acute Assessment and Plan: Clinically euvolemic (8) Obstructive sleep apnea treated with continuous positive airway pressure (CPAP): Onset Date: Unknown Code(s): G47.33 - Obstructive sleep apnea (adult) (pediatric); Z99.89 - Dependence on other enabling machines and devices Status: Acute Assessment and Plan: CPAP while sleeping (9) Anticoagulant long-term use: Onset Date: Unknown Code(s): 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 Much less epigastric to RUQ pain. Mild to moderate aching. No n/v. Bowels moved. Denied chest pain, sob, edema. Denied dysuria. Denied abnormal bleeding. Review of Systems Review of Systems: All systems reviewed & are unremarkable except as noted in HPI and below Exam Narrative: Exam Narrative: HEENT: EOMI, PERRL, sclerae nonicteric, pharyngeal mucosa pink and intact NECK: No JVD, adenopathy, or thyromegaly CHEST: Clear to auscultation. Normal effort. HEART: NL S1/S2, regular, no murmur ABDOMEN: BS+, soft, tender epigastrium to right upper quadrant, no mass, no bruits EXTREMITIES: No cyanosis, edema, or clubbing NEUROLOGIC: CN intact and symmetric to inspection. MUSCULOSKELETAL: Tone and strength symmetric. PSYCH: Alert. Oriented to person, place, and time. Objective Data Vital Signs Vital Signs: Vital Signs - 24 hr 01/07/20 12:00 01/07/20 14:00 01/07/20 15:20 Temperature 97.8 F Pulse Rate 75 87 86 Respiratory Rate 16 Blood Pressure 172/91 H Pulse Oximetry 98 01/07/20 17:26 01/07/20 22:00 01/07/20 22:04 Temperature 98.2 F Pulse Rate 93 91 101 H Respiratory Rate 20 Blood Pressure 165/89 H 169/87 H Pulse Oximetry 95 95 01/08/20 06:00 01/08/20
[2020-01-08] MEDS: LACTATED RINGERS 1,000 ML 30 ML IV CONT ×2 (11:40→15:45)
--- NOTE | 2020-01-08 12:14 | WPDANESEPPF ---
Anes - Initial Pre Proc Eval Procedure: Operation Date: 01/08/20 12:30 Proposed Procedures p Laparoscopic Cholecystectomy, Possible Intraoperative Cholangiogram - James Hazel MD Date/Time: 01/08/20 12:14 Surgeon: Dennis Gilman MD Pre Op Diagnosis: acute cholecystitis,hypertension Patient Data Age: 59 Gender: M Height: 5 ft 9 in Weight: 119.2 kg Last Vital Signs Temp 98.6 F 01/08/20 11:31 Pulse 78 01/08/20 11:31 Resp 18 01/08/20 11:31 BP 150/97 H 01/08/20 11:31 Pulse Ox 97 01/08/20 11:31 Allergies Allergy/AdvReac Type Severity Reaction Status Date / Time latex Allergy Unknown Unknown Verified 01/06/20 07:28 adhesive AdvReac Mild Other Verified 01/06/20 07:28 Home Medications Medication Instructions Recorded Confirmed Type valsartan 320 mg tablet 320 mg PO DAILY #90 tablet 11/20/19 01/06/20 Rx furosemide 80 mg tablet 80 mg PO BID #180 tablet 11/27/19 01/06/20 Rx hydralazine 100 mg tablet 100 mg PO TID #270 tablet 12/19/19 01/06/20 Rx nebivolol 10 mg tablet 10 mg PO DAILY #90 tablet 12/19/19 01/06/20 Rx potassium chloride 20 mEq See Rx Instructions PO DAILY #450 12/19/19 01/06/20 Rx tablet,extended release tablet testosterone 20.25 mg/1.25 gram 4 pump TOPICAL DAILY #176 gm 12/19/19 01/06/20 Rx (1.62 %) transdermal gel pump dabigatran etexilate [Pradaxa] 150 mg PO BID 01/06/20 01/06/20 History Laboratory Tests 01/07/20 01/08/20 01/08/20 15:58 04:53 04:55 WBC RBC Hgb Hct MCV MCH MCHC RDW Plt Count MPV Immature Gran % (Auto) Neut % (Auto) Lymph % (Auto) [place] % (Auto) Eos % (Auto) Baso % (Auto) Lymph # (Auto) [place] # (Auto) Eos # (Auto) Baso # (Auto) Abs Immat Gran (auto) Absolute Neuts (auto) Absolute Nucleated RBC Nucleated RBC % APTT 126.9 SECONDS H SECONDS (22.3-36.8) Sodium 135 mmol/L L mmol/L (137-145) Potassium 3.1 mmol/L L mmol/L (3.4-5.0) Chloride 97 mmol/L L mmol/L (98-107) Carbon Dioxide 30 mmol/L mmol/L (22-30) BUN 14 mg/dL mg/dL (9-20) Creatinine 1.30 mg/dL mg/dL (0.7-1.3) Estim Creat Clear Calc 69 ml/min ml/min Estimated GFR 56 L (59 - ) Glucose 127 mg/dL H mg/dL (75-110) Calcium 8.5 mg/dL mg/dL (8.4-10.2) Magnesium 1.8 mg/dL mg/dL 1.7 mg/dL mg/dL (1.6-2.3) (1.6-2.3) Total Bilirubin AST ALT Alkaline Phosphatase Total Protein Albumin Blood Type Antibody Screen 01/08/20 01/08/20 01/08/20 04:55 04:56 04:56 WBC 17.4 K/mm3 H K/mm3 (4.5-10.0) RBC 3.97 M/mm3 L M/mm3 (4.6-6.20) Hgb 11.6 g/dL L g/dL (14.0-18.0) Hct 35.6 % L % (42.0-52.0) MCV 89.7 fl fl (80-100) MCH 29.2 pg pg (26-34) MCHC 32.6 g/dl g/dl (32-36) RDW 15.3 % H % (11.5-14.5) Plt Count 181 k/mm3 k/mm3 (150-375) MPV 11.4 fl H fl (7.4-10.4) Immature Gran % (Auto) 0.6 % H % (0-0.5) Neut % (Auto) 80.7 % H % (45.5-73.1) Lymph % (Auto) 6.3 % L % (18.3-44.2) [place] % (Auto) 11.2 % H % (2.6-8.5) Eos % (Auto) 1.0 % % (0-4.4) Baso % (Auto) 0.2 % % (0.2-1.2) Lymph # (Auto) 1.09 K/mm3 K/mm3 (0.9-3.2) [place] # (Auto) 1.9 K/mm3 H K/mm3 (0.1-0.6) Eos # (Auto) 0.2 K/mm3 K/mm3 (0-0.3) Baso # (Auto) 0.0 K/mm3 K/mm3 (0.0-0.1) Abs Immat Gran (auto) 0.10 K/mm3 H K/mm3 (0.00-0.031) Absolute Neuts (auto) 14.0 K/mm3 H K/mm3 (1.3-6.7) Abs
[2020-01-08] MEDS: BUPIVACAINE/EPINEPHRINE 0.5% 10 ML VIAL 30 ML INFILTRATE (13:44)
--- NOTE | 2020-01-08 15:45 | PM.PROC ---
Procedure Note - Detailed Date of procedure: 01/08/20 Pre-op diagnosis: acute cholecystitis,hypertension 2. Umbilical hernia Post-op diagnosis: same (And umbilical hernia) Procedure performed: 1. Laparoscopic cholecystectomy with intraoperative cholangiogram. 2. Repair of umbilical hernia Description of procedure: Procedure Details: Patient was seen preoperatively in the holding area and risks, benefits and alternatives confirmed. Patient was taken to the operating room and general anesthesia was induced. A time out was then preformed with the surgery team confirming patient and site of surgery. The abdomen was prepped and draped in the usual sterile fashion. Incision was made just above the umbilicus. CT scan had shown an umbilical hernia and indeed a transverse supraumbilical incision was made and we carefully dissected out the preperitoneal fat and a little bit of omentum that was in the hernia sac. I dissected this circumferentially and amputated it at the level of the fascia. The fascial defect was rounded and approximately 2.5 cm in diameter once we had removed the sac and the preperitoneal fat that was present. Two stay sutures of O- Vicryl were placed on either side of the mid-line defect at the umbilicus. The peritoneum was entered. The 12 mm Fuller cannula was introduced under direct vision through the umbilical hernia defect. This was secured with the stay sutures and the balloon inflated. First under low flow and then under high flow the abdomen was insufflated with carbon dioxide never exceeding a pressure of 14. Two 5 mm trocars were then introduced under direct vision. The following trocars were introduced under direct vision: a 10 mm in the epigastrium and two 5 mm trocars along the right costal margin. Inspection of the lower abdomen revealed a small to medium size indirect left inguinal hernia without any thing in it and an apparently repaired right inguinal hernia. I could not definitely see mesh. There was a loop of colon against the gallbladder with some inflammatory adhesions that pushed away fairly easily with a Kittner. The gallbladder seemed to be significantly inflamed and was reddish in color. Prior to trying to dissect the triangle of colo we decompressed the gallbladder with a long laparoscopic needle. Approximately 40 cc of bile was removed from the gallbladder and this was sent for Gram stain and C&S. The gall bladder was grasped and the cystic duct and artery were dissected free and clipped with an 10 mm endo-clip centerless grinder operator. There was a lot of inflammation around the triangle of Chalot. I did use the 10 mm right angle instrument to get around the cystic duct. Cystic artery was identified immediately posterior and cephalad to the cystic duct. It was difficult to get a window of safety but of small window safety was noted just above the cystic artery. Therefore, I proceeded with a cholangiogram. A small hole was made in the cystic duct with endoshears and a cholagio-cath introduced. A cholangiogram was obtained revealing free flow into the cystic duct, common bile duct, common hepatic, right and left hepatic ducts with free flow into the duodenum with no filling defects in the intra nor extrahepatic biliary tree and no dilation. There appeared to be a common channel and the distal portion of the pancreatic duct did opacify during the cholangiogram. The catheter was removed and the cystic duct was clipped with a 10 mm endoclip-centerless grinder operator. The cystic duct was then transected. The cystic artery was also transected at this point. The gall bladder was removed using electrocautery and then removed in an endobag via the umbilical incision. There was significant inflammation behind the gallbladder and approximately 50 cc of blood loss occurred with removal of the gallbladder. The trocars were removed visualizing hemostasis and the remaining gas evacuated. The large opening at the umbilical level was then closed with approximately 6-7 sutures
--- NOTE | 2020-01-08 16:02 | SUR.PHASEI ---
1545-INCONTINENT OF URINE ON ARRIVAL AND COMPLETE BED CHANGE DONE WITH PERINEAL CLEANSING.
[2020-01-08 16:25] LABS: Hematocrit 37.7 % (42.0-52.0)
--- NOTE | 2020-01-08 16:27 | SUR.PHASEI ---
1605-H/H DRAWN AND SENT TO LAB. UNABLE TO PRINT LABEL, PATIENT STICKER APPLIED AND LAB NOTIFIED.
[2020-01-08 17:32] LABS: INR 1.3; Prothrombin Time 15.7 Seconds (11.1-14.7)
[2020-01-08 17:33] LABS: Blood Urea Nitrogen 14 mg/dL (9-20); Calcium 8.3 mg/dL (8.4-10.2); Carbon Dioxide 32 mmol/L (22-30); Chloride 98 mmol/L (98-107); Estimated CRCL calculation 60 ml/min; Estimated Glomerular Filt Rate 48; Glucose 133 mg/dL (75-110); Magnesium 2.2 mg/dL (1.6-2.3); Partial Thromboplastin Time 40.6 SECONDS (22.3-36.8); Potassium 3.3 mmol/L (3.4-5.0); Sodium 135 mmol/L (137-145)
[2020-01-08] MEDS: POTASSIUM CHLORIDE INJ 10 MEQ in DEXTROSE 5%/0.45% SOD CHL 1,000 ML 100 MEQ IV CONT (17:48)
[2020-01-08] MEDS: SENNA/DOCUSATE SODIUM TABLET 2 TAB PO (20:11)
[2020-01-09 02:36] VITALS: BP 149/87; PULSE 78; RESP 20; TEMP 36.1; O2SAT 98
[2020-01-09] MEDS: POTASSIUM CHLORIDE INJ 10 MEQ in DEXTROSE 5%/0.45% SOD CHL 1,000 ML 100 MEQ IV CONT (03:26)
[2020-01-09 04:55] LABS: Hematocrit 34.3 % (42.0-52.0); Hemoglobin 11.2 g/dL (14.0-18.0); Mean Corpuscular HGB Conc 32.7 g/dl (32-36); Mean Corpuscular Hemoglobin 29.3 pg (26-34); Mean Corpuscular Volume 89.8 fl (80-100); Mean Platelet Volume 11.2 fl (7.4-10.4); Platelet Count Result 182 k/mm3 (150-375); Red Blood Count 3.82 M/mm3 (4.6-6.20); White Blood Count 11.7 K/mm3 (4.5-10.0)
[2020-01-09 05:05] LABS: INR 1.3; Prothrombin Time 15.9 Seconds (11.1-14.7)
[2020-01-09 05:06] LABS: Partial Thromboplastin Time 45.5 SECONDS (22.3-36.8)
[2020-01-09 05:09] LABS: Alanine Aminotransferase 32 U/L (4-50); Albumin Level 3.3 g/dL (3.5-5.1); Alkaline Phosphatase 64 U/L (38-126); Aspartate Amino Transferase 51 U/L (17-59); Bilirubin,Total 1.2 mg/dL (0.2-1.3); Blood Urea Nitrogen 16 mg/dL (9-20); Calcium 8.2 mg/dL (8.4-10.2); Carbon Dioxide 32 mmol/L (22-30); Chloride 100 mmol/L (98-107); Estimated CRCL calculation 64 ml/min; Estimated Glomerular Filt Rate 52; Glucose 151 mg/dL (75-110); Potassium 3.2 mmol/L (3.4-5.0); Sodium 136 mmol/L (137-145)
[2020-01-09 06:36] VITALS: BP 128/70; PULSE 69; RESP 20; TEMP 36.3; O2SAT 98
[2020-01-09 08:00] VITALS: PULSE 69; RESP 20; O2SAT 98
--- NOTE | 2020-01-09 10:39 | P.PNIM_ITS ---
Progress Note: A&P Assessment and Plan (1) Acute cholecystitis: Onset Date: ~01/06/20 Code(s): K81.0 - Acute cholecystitis Status: Acute Assessment and Plan: * Zosyn day 4 * Analgesics and anti emetics p.r.n. * IV fluid * Postop day 1. Lap choly and umbilical hernia repair * Off heparin and to restart Pradaxa this p.m. (2) A-fib: Onset Date: Unknown Qualifiers: Atrial fibrillation type: unspecified Qualified Code(s): I48.91 - Unspecified atrial fibrillation Code(s): I48.91 - Unspecified atrial fibrillation Status: Acute Assessment and Plan: * Held Pradaxa initially and to restart this p.m. * Bridged with heparin due to high risk for recurrent stroke * Postop day 1. (3) Hypokalemia: Code(s): E87.6 - Hypokalemia Status: Acute Assessment and Plan: * po supplementation x 3 today. 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 Status: Acute Assessment and Plan: * This likely accounts for his hypokalemia and at least a protion of his hbp (5) History of CVA (cerebrovascular accident): Code(s): Z86.73 - Personal history of transient ischemic attack (TIA), and cerebral infarction without residual deficits Status: Acute Assessment and Plan: * 2018 * Minimal residual deficit, mainly slowed mentation (6) Secondary hypertension, unspecified: Code(s): I15.9 - Secondary hypertension, unspecified Status: Acute Assessment and Plan: * Hx hyperaldosteronism, bp still ok and will restart nebivolol today (7) Chronic diastolic heart failure: Onset Date: Unknown Code(s): I50.32 - Chronic diastolic (congestive) heart failure Status: Acute Assessment and Plan: * Clinically euvolemic (8) Obstructive sleep apnea treated with continuous positive airway pressure (CPAP): Onset Date: Unknown Code(s): G47.33 - Obstructive sleep apnea (adult) (pediatric); Z99.89 - Dependence on other enabling machines and devices Status: Acute Assessment and Plan: * CPAP while sleeping (9) Anticoagulant long-term use: Onset Date: Unknown Code(s): 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 * Due to hx of stroke, bridged with heparin (10) Left inguinal hernia: Onset Date: Unknown Code(s): K40.90 - Unilateral inguinal hernia, without obstruction or gangrene, not specified as recurrent Status: Acute Assessment and Plan: * Currently asymptomatic Subjective Date/time seen: 01/09/20 10:39 Interval history: Date of visit 01/08. . Mild Pain postop day 1. No n/v. Bowels moved. Tolerating diet Denied chest pain, sob, edema. Denied dysuria. Denied abnormal bleeding. Exam Narrative: Exam Narrative: Blood pressure 120/70 pulse is 70 afebrile HEENT: , PERRL, sclerae nonicteric, NECK: No JVD, supple CHEST: Clear to auscultation. Normal effort. HEART: NL S1/S2, regular, no murmur ABDOMEN: BS+, soft, incisions clean and dry laparoscopic procedure EXTREMITIES: No , edema, NEUROLOGIC: CN intact no gross focal deficits PSYCH: Alert. Oriented to person, place, and time. Objective Data Vital Signs Vital Signs:
--- NOTE | 2020-01-09 10:39 | PM.IMPN ---
Progress Note: A&P Assessment and Plan (1) Acute cholecystitis: Onset Date: ~01/06/20 Code(s): K81.0 - Acute cholecystitis Status: Acute Assessment and Plan: Zosyn day 4 Analgesics and anti emetics p.r.n. IV fluid Postop day 1. Lap choly and umbilical hernia repair Off heparin and to restart Pradaxa this p.m. (2) A-fib: Onset Date: Unknown Qualifiers: Atrial fibrillation type: unspecified Qualified Code(s): I48.91 - Unspecified atrial fibrillation Code(s): I48.91 - Unspecified atrial fibrillation Status: Acute Assessment and Plan: Held Pradaxa initially and to restart this p.m. Bridged with heparin due to high risk for recurrent stroke Postop day 1. (3) Hypokalemia: Code(s): E87.6 - Hypokalemia Status: Acute Assessment and Plan: po supplementation x 3 today. 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 Status: Acute Assessment and Plan: This likely accounts for his hypokalemia and at least a protion of his hbp (5) History of CVA (cerebrovascular accident): Code(s): Z86.73 - Personal history of transient ischemic attack (TIA), and cerebral infarction without residual deficits Status: Acute Assessment and Plan: 2018 Minimal residual deficit, mainly slowed mentation (6) Secondary hypertension, unspecified: Code(s): I15.9 - Secondary hypertension, unspecified Status: Acute Assessment and Plan: Hx hyperaldosteronism, bp still ok and will restart nebivolol today (7) Chronic diastolic heart failure: Onset Date: Unknown Code(s): I50.32 - Chronic diastolic (congestive) heart failure Status: Acute Assessment and Plan: Clinically euvolemic (8) Obstructive sleep apnea treated with continuous positive airway pressure (CPAP): Onset Date: Unknown Code(s): G47.33 - Obstructive sleep apnea (adult) (pediatric); Z99.89 - Dependence on other enabling machines and devices Status: Acute Assessment and Plan: CPAP while sleeping (9) Anticoagulant long-term use: Onset Date: Unknown Code(s): 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 Due to hx of stroke, bridged with heparin (10) Left inguinal hernia: Onset Date: Unknown Code(s): K40.90 - Unilateral inguinal hernia, without obstruction or gangrene, not specified as recurrent Status: Acute Assessment and Plan: Currently asymptomatic Subjective Date/time seen: 01/09/20 10:39 Interval history: Date of visit 01/08. . Mild Pain postop day 1. No n/v. Bowels moved. Tolerating diet Denied chest pain, sob, edema. Denied dysuria. Denied abnormal bleeding. Exam Narrative: Exam Narrative: Blood pressure 120/70 pulse is 70 afebrile HEENT: , PERRL, sclerae nonicteric, NECK: No JVD, supple CHEST: Clear to auscultation. Normal effort. HEART: NL S1/S2, regular, no murmur ABDOMEN: BS+, soft, incisions clean and dry laparoscopic procedure EXTREMITIES: No , edema, NEUROLOGIC: CN intact no gross focal deficits PSYCH: Alert. Oriented to person, place, and time. Objective Data Vital Signs Vital Signs: Vital Signs - 24 hr 01/08/20 11:31 01/08/20 15:45 01/08/20 16:00 Temperature 37.0 C 37.3 C Pulse Rate 78 80 87 Respiratory Rate 18 25 H 23 H Blood Pressure 150/97 H 150/97 H 143/83 H Pulse Oximetry 97 97 97 01/08/20 16:15 01/08/20 16:30 01/08/20 16:45 Temperature Pulse Rate 85 86 81 Respiratory Rate 14 16 16 Blood Pressure 148/93 H 150/83 H 150/88 H Pulse Oximetry 93 93 94 01/08/20 17:06 01/08/20 17:55 01/08/20 19:06 Temperature 36.6 C 36.7 C 36.8 C Pulse Rate 90 93 94 Respi
[2020-01-09] MEDS: POTASSIUM CHLORIDE 20 MEQ TABLET 40 MEQ PO ×2 (11:07→14:13)
[2020-01-09] MEDS: NEBIVOLOL HCL 5 MG TABLET PO (11:45)
[2020-01-09 14:00] VITALS: BP 147/85; PULSE 72; RESP 16; TEMP 36.1; O2SAT 99
--- NOTE | 2020-01-09 14:06 | PM.PNGS ---
Progress Note: A&P Assessment and Plan (1) Acute cholecystitis: Onset Date: ~01/06/20 Code(s): K81.0 - Acute cholecystitis Status: Acute Assessment and Plan: POD#1 and patient doing well. Tolerating a low fat/heart healthy diet and pain is well controlled. Okay from a surgical standpoint to discharge the patient today. Discussed discharge instructions with the patient in detail and answered all questions. Follow-up with Dr. Haezl in 2 weeks in the office. No lifting more than 10-15 pounds. Low fat diet. May shower, incisions open to air. Will send him home with 3 more days of oral antibiotics. Bile cultures pending but gram stain shows no WBC or organisms seen. Pathology pending - will discuss as an outpatient. Encouraged continued IS use and walking at least 3 times daily. (2) Umbilical hernia: Onset Date: Unknown Code(s): K42.9 - Umbilical hernia without obstruction or gangrene Status: Acute Assessment and Plan: S/p umbilical hernia repair. Will lengthen the amount of time he will have lifting restrictions post-operatively. Discussed this with the patient. (3) Hypertension: Onset Date: Unknown Code(s): I10 - Essential (primary) hypertension Status: Acute Assessment and Plan: Management per Hospitalist. (4) Chronic diastolic heart failure: Onset Date: Unknown Code(s): I50.32 - Chronic diastolic (congestive) heart failure Status: Acute (5) Obstructive sleep apnea treated with continuous positive airway pressure (CPAP): Onset Date: Unknown Code(s): G47.33 - Obstructive sleep apnea (adult) (pediatric); Z99.89 - Dependence on other enabling machines and devices Status: Acute Assessment and Plan: Using CPAP all here. He feels somewhat sleep deprived. (6) Left inguinal hernia: Onset Date: Unknown Code(s): K40.90 - Unilateral inguinal hernia, without obstruction or gangrene, not specified as recurrent Status: Acute Assessment and Plan: Inspect both groins at the time of surgery and documented. 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 (8) Hx of colonic polyps: Onset Date: Unknown Code(s): Z86.010 - Personal history of colonic polyps Status: Acute (9) Body mass index (BMI) 40.0-44.9, adult: Onset Date: Unknown Code(s): Z68.41 - Body mass index (BMI) 40.0-44.9, adult Status: Acute Assessment and Plan: Patient encouraged to follow a low fat diet and work on weight loss. (10) A-fib: Onset Date: Unknown Qualifiers: Atrial fibrillation type: unspecified Qualified Code(s): I48.91 - Unspecified atrial fibrillation Code(s): I48.91 - Unspecified atrial fibrillation Status: Acute Additional Plan Discussed the patient's case and formulated plan of care with Dr. Hazel today. Subjective Subjective Date/Time Seen: 01/09/20 11:06 Post Op day: 1 (lap justin and umbilical hernia repair) Patient reports: no new complaints, tolerating a regular diet (low fat/heart healthy diet), flatus and bowel movement Interval history: Patient reports feeling well today. Denies any nausea, vomiting or bloating. States he is having some abdominal pain near incisions with movement but his epigastric abdominal pain prior to surgery has nearly completely resolved. Reports flatus and a very small bowel movement today. Tolerating his diet with no complaints. Voiding without complaints. Denies any other complaints at this time. Review of Systems Review of Systems: All systems reviewed & are unremarkable except as noted in HPI and below Cardiovascular: Cardiovascular: Denies chest pain and Denies lightheadedness Respiratory: Respiratory: Denies dyspnea, Denies dysp
--- NOTE | 2020-01-09 17:42 | P.DS_ITS ---
DS: Diagnosis Admitting Diagnosis Admitting Diagnosis: Acute cholecystitis Discharge Diagnosis (1) Acute cholecystitis: Onset Date: ~01/06/20 Code(s): K81.0 - Acute cholecystitis Status: Acute Assessment and Plan: * Zosyn day 4 here and will receive Levaquin 750 daily for 3 more days on discharge * Analgesics and anti emetics p.r.n. * Postop day 1. Lap choly and umbilical hernia repair doing well and will be discharged home for surgery * Off heparin and to restart Pradaxa this p.m. (2) A-fib: Onset Date: Unknown Qualifiers: Atrial fibrillation type: unspecified Qualified Code(s): I48.91 - Unspecified atrial fibrillation Code(s): I48.91 - Unspecified atrial fibrillation Status: Acute Assessment and Plan: * Held Pradaxa initially and to restart this p.m. * Bridged with heparin due to high risk for recurrent stroke * Postop day 1. (3) Hypokalemia: Code(s): E87.6 - Hypokalemia Status: Acute Assessment and Plan: * po supplementation of 80 mEq today today. 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 Status: Acute Assessment and Plan: * This likely accounts for his hypokalemia and at least a protion of his hbp (5) History of CVA (cerebrovascular accident): Code(s): Z86.73 - Personal history of transient ischemic attack (TIA), and cerebral infarction without residual deficits Status: Acute Assessment and Plan: * 2018 * Minimal residual deficit, mainly slowed mentation (6) Secondary hypertension, unspecified: Code(s): I15.9 - Secondary hypertension, unspecified Status: Acute Assessment and Plan: * Hx hyperaldosteronism, bp still ok and restarted nebivolol today and will restart his hydralazine this p.m. 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 * Due to hx of stroke, bridged with heparin (10) Left inguinal hernia: Onset Date: Unknown Code(s): K40.90 - Unilateral inguinal hernia, without obstruction or gangrene, not specified as recurrent Status: Acute Assessment and Plan: * Currently asymptomatic DS: Summary Hospital Course Hospital Course: 59-year-old hypertensive white male with history of atrial fibrillation and CVA admitted with acute cholecystitis. Pradaxa was held and taken to the OR on the 4th for laparoscopic cholecystectomy and repair of umbilical hernia. Postoperative course was uneventful with falling white cell count and bilirubin returning normal 1.2 the day of discharge. He will follow-up with surgery within 2 weeks and have 3 more days of p.o. antibiotics levofl
--- NOTE | 2020-01-09 17:42 | PM.DS ---
DS: Diagnosis Admitting Diagnosis Admitting Diagnosis: Acute cholecystitis Discharge Diagnosis (1) Acute cholecystitis: Onset Date: ~01/06/20 Code(s): K81.0 - Acute cholecystitis Status: Acute Assessment and Plan: Zosyn day 4 here and will receive Levaquin 750 daily for 3 more days on discharge Analgesics and anti emetics p.r.n. Postop day 1. Lap choly and umbilical hernia repair doing well and will be discharged home for surgery Off heparin and to restart Pradaxa this p.m. (2) A-fib: Onset Date: Unknown Qualifiers: Atrial fibrillation type: unspecified Qualified Code(s): I48.91 - Unspecified atrial fibrillation Code(s): I48.91 - Unspecified atrial fibrillation Status: Acute Assessment and Plan: Held Pradaxa initially and to restart this p.m. Bridged with heparin due to high risk for recurrent stroke Postop day 1. (3) Hypokalemia: Code(s): E87.6 - Hypokalemia Status: Acute Assessment and Plan: po supplementation of 80 mEq today today. 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 Status: Acute Assessment and Plan: This likely accounts for his hypokalemia and at least a protion of his hbp (5) History of CVA (cerebrovascular accident): Code(s): Z86.73 - Personal history of transient ischemic attack (TIA), and cerebral infarction without residual deficits Status: Acute Assessment and Plan: 2018 Minimal residual deficit, mainly slowed mentation (6) Secondary hypertension, unspecified: Code(s): I15.9 - Secondary hypertension, unspecified Status: Acute Assessment and Plan: Hx hyperaldosteronism, bp still ok and restarted nebivolol today and will restart his hydralazine this p.m. 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 Due to hx of stroke, bridged with heparin (10) Left inguinal hernia: Onset Date: Unknown Code(s): K40.90 - Unilateral inguinal hernia, without obstruction or gangrene, not specified as recurrent Status: Acute Assessment and Plan: Currently asymptomatic DS: Summary Hospital Course Hospital Course: 59-year-old hypertensive white male with history of atrial fibrillation and CVA admitted with acute cholecystitis. Pradaxa was held and taken to the OR on the 4th for laparoscopic cholecystectomy and repair of umbilical hernia. Postoperative course was uneventful with falling white cell count and bilirubin returning normal 1.2 the day of discharge. He will follow-up with surgery within 2 weeks and have 3 more days of p.o. antibiotics levofloxacin 750 daily at home. Activity per surgery Time Spent with Patient Time attestation: Total time spent providing and/or coordinating discharge services:35 minutes Exam Narrative: Exam Narrative: Condition on discharge Blood pressure 146/84 pulse is 72 afebrile saturating 99% on room air Lungs are clear CV regular rate rhythm Abdomen is soft incisions are clean and dry from lap justin Extremities without edema Neuro alert pleasant blending coordinator
== END 2020-01-09 16:28 | disposition home or self-care (01) | DRG 418 ==
LOC: ANHED 09:46 → ANH2MED 10:11
PROVIDERS: Internal Medicine; Surgery; Admitting Provider Internal Medicine; Emergency Provider General Practice; PCP Internal Medicine; Visit Provider Internal Medicine
PROC: 0FT44ZZ Resection of Gallbladder, Percutaneous Endoscopic Approach (ICD-10-PCS; CPT 47562; principal; 2020-01-08 12:30)
DX: K81.0 Acute cholecystitis (principal); I50.32 Chronic diastolic (congestive) heart failure; I48.20 Chronic atrial fibrillation, unspecified; K42.9 Umbilical hernia without obstruction or gangrene; E87.6 Hypokalemia; E26.01 Conn's syndrome; I15.9 Secondary hypertension, unspecified; G47.33 Obstructive sleep apnea (adult) (pediatric); K40.90 Unilateral inguinal hernia, without obstruction or gangrene, not specified as recurrent; E78.5 Hyperlipidemia, unspecified; D50.8 Other iron deficiency anemias; E55.9 Vitamin D deficiency, unspecified; Z86.73 Personal history of transient ischemic attack (TIA), and cerebral infarction without residual deficits; Z79.01 Long term (current) use of anticoagulants
CPT/HCPCS: 36415; 74177; 74300; 80048; 80053; 80076; 81001; 83605; 83690; 83735; 84132; 85014; 85018; 85025; 85027; 85610; 85730; 86850; 86900; 86901; 87070; 87075; 87205; 88300; 88304; 93005; 96361; 96365; 96366; 96367; 96375; 96376; 99285; A9270; C1713; G0378; J0131; J0330; J0360; J0780; J1100; J1170; J1644; J2405; J2543; J2704; J3010; J3475; J3480; J7120; Q9966; Q9967

== ENCOUNTER 2020-03-12 13:46 | Outpatient (CLI) | payer OTHER, SELFPAY ==
[2020-03-12 14:21] LABS: Hemoglobin A1C 5.6 % (<5.7)
[2020-03-12 14:24] LABS: Basophils Percent Auto 0.6 % (0.2-1.2); Eosinophils Absolute Auto 0.2 K/mm3 (0-0.3); Eosinophils Percent Auto 2.8 % (0-4.4); Hematocrit 44.1 % (42.0-52.0); Hemoglobin 14.2 g/dL (14.0-18.0); Immature Granulocyte Absolute 0.04 K/mm3 (0.00-0.031); Immature Granulocyte Percent A 0.6 % (0-0.5); Lymphocytes Absolute Auto 1.05 K/mm3 (0.9-3.2); Lymphocytes Percent Auto 14.9 % (18.3-44.2); Mean Corpuscular HGB Conc 32.2 g/dl (32-36); Mean Corpuscular Hemoglobin 29.4 pg (26-34); Mean Corpuscular Volume 91.3 fl (80-100); Mean Platelet Volume 11.6 fl (7.4-10.4); Monocytes Absolute Auto 0.5 K/mm3 (0.1-0.6); Monocytes Percent Auto 7.7 % (2.6-8.5); Neutrophils Absolute Auto 5.2 K/mm3 (1.3-6.7); Neutrophils Percent Auto 73.4 % (45.5-73.1); Platelet Count Result 230 k/mm3 (150-375); Red Blood Count 4.83 M/mm3 (4.6-6.20)
[2020-03-12 14:34] LABS: LDL Cholesterol Direct 97 mg/dL
[2020-03-12 14:35] LABS: Alanine Aminotransferase 23 U/L (4-50); Albumin Level 4.3 g/dL (3.5-5.1); Alkaline Phosphatase 71 U/L (38-126); Aspartate Amino Transferase 31 U/L (17-59); Bilirubin,Total 0.7 mg/dL (0.2-1.3); Blood Urea Nitrogen 11 mg/dL (9-20); Calcium 8.8 mg/dL (8.4-10.2); Carbon Dioxide 32 mmol/L (22-30); Chloride 100 mmol/L (98-107); Cholesterol 152 mg/dL (0-200); Estimated Glomerular Filt Rate 56; Glucose 120 mg/dL (75-110); HDL Direct 39 mg/dL; Potassium 2.5 mmol/L (3.4-5.0); Sodium 142 mmol/L (137-145); Triglycerides 77 mg/dL (<150)
[2020-03-12 14:54] LABS: Prostate Specific Antigen 2.1 ng/mL (< OR = 4.0)
[2020-03-15 05:19] LABS: Homocysteine 16.9 umol/L (<11.4)
[2020-03-15 11:10] LABS: Testosterone Total 1107 ng/dL (250-1100)
[2020-03-15 13:37] LABS: Vitamin D 1,25 (OH)2 Total 67 pg/mL (18-72); Vitamin D2 1,25 (OH)2 <8 pg/mL; Vitamin D3 1,25 (OH)2 67 pg/mL
== END 2020-03-12 13:47 | disposition home or self-care (01) ==
PROVIDERS: PCP Internal Medicine; Visit Provider Internal Medicine
DX: E78.2 Mixed hyperlipidemia (principal); E55.9 Vitamin D deficiency, unspecified; I10 Essential (primary) hypertension; R79.89 Other specified abnormal findings of blood chemistry; D50.8 Other iron deficiency anemias; E29.1 Testicular hypofunction; Z12.5 Encounter for screening for malignant neoplasm of prostate; Z79.899 Other long term (current) drug therapy
CPT/HCPCS: 36415; 80053; 80061; 82652; 83036; 83090; 84153; 84403; 85025

== ENCOUNTER 2020-03-20 12:32 | Outpatient (CLI) | payer OTHER, SELFPAY ==
[2020-03-20 13:01] LABS: Potassium 3.4 mmol/L (3.4-5.0)
== END 2020-03-20 12:33 | disposition home or self-care (01) ==
PROVIDERS: PCP Internal Medicine; Visit Provider Internal Medicine
DX: E87.6 Hypokalemia (principal)
CPT/HCPCS: 36415; 84132

== ENCOUNTER 2020-04-22 11:52 | Outpatient (CLI) | payer OTHER, SELFPAY ==
[2020-04-25 07:01] LABS: Testosterone Total 865 ng/dL (250-1100)
== END 2020-04-22 11:53 | disposition home or self-care (01) ==
PROVIDERS: PCP Internal Medicine; Visit Provider Internal Medicine
DX: E29.1 Testicular hypofunction (principal); Z79.899 Other long term (current) drug therapy
CPT/HCPCS: 36415; 84403

== ENCOUNTER 2020-07-25 09:41 | Outpatient (CLI) | payer OTHER, SELFPAY ==
[2020-07-25 10:23] LABS: Alanine Aminotransferase 33 U/L (4-50); Albumin Level 4.4 g/dL (3.5-5.1); Alkaline Phosphatase 79 U/L (38-126); Anion Gap 8 mmol/L (8-16); Aspartate Amino Transferase 40 U/L (17-59); Bilirubin,Total 0.8 mg/dL (0.2-1.3); Blood Urea Nitrogen 15 mg/dL (9-20); Calcium 9.1 mg/dL (8.4-10.2); Carbon Dioxide 33 mmol/L (22-30); Chloride 99 mmol/L (98-107); Cholesterol 97 mg/dL (0-200); Estimated Glomerular Filt Rate 56; Glucose 106 mg/dL (75-110); HDL Direct 36 mg/dL; Potassium 3.4 mmol/L (3.4-5.0); Sodium 140 mmol/L (137-145); Triglycerides 64 mg/dL (<150)
[2020-07-25 10:34] LABS: LDL Cholesterol Direct 41 mg/dL
[2020-07-30 13:50] LABS: Testosterone Total 983 ng/dL (250-1100)
== END 2020-07-25 09:42 | disposition home or self-care (01) ==
LOC: ANHLAB 09:43
PROVIDERS: PCP Internal Medicine; Visit Provider Internal Medicine
DX: E78.2 Mixed hyperlipidemia (principal); I10 Essential (primary) hypertension; E29.1 Testicular hypofunction
CPT/HCPCS: 36415; 80048; 80061; 80076; 84403

== ENCOUNTER 2020-12-13 12:21 | Outpatient (CLI) | payer OTHER, SELFPAY ==
[2020-12-13 12:53] LABS: Basophils Percent Auto 0.6 % (0.2-1.2); Eosinophils Absolute Auto 0.2 K/mm3 (0-0.3); Eosinophils Percent Auto 3.4 % (0-4.4); Hemoglobin 15.4 g/dL (14.0-18.0); Immature Granulocyte Absolute 0.01 K/mm3 (0.00-0.031); Immature Granulocyte Percent A 0.1 % (0-0.5); Lymphocytes Absolute Auto 1.03 K/mm3 (0.9-3.2); Lymphocytes Percent Auto 15.2 % (18.3-44.2); Mean Corpuscular HGB Conc 32.8 g/dl (32-36); Mean Corpuscular Hemoglobin 30.4 pg (26-34); Mean Corpuscular Volume 92.7 fl (80-100); Mean Platelet Volume 11.3 fl (7.4-10.4); Monocytes Absolute Auto 0.7 K/mm3 (0.1-0.6); Monocytes Percent Auto 9.9 % (2.6-8.5); Neutrophils Absolute Auto 4.8 K/mm3 (1.3-6.7); Neutrophils Percent Auto 70.8 % (45.5-73.1); Platelet Count Result 199 k/mm3 (150-375); Red Blood Count 5.07 M/mm3 (4.6-6.20); Red Cell Distribution Width 14.7 % (11.5-14.5); White Blood Count 6.8 K/mm3 (4.5-10.0)
[2020-12-13 12:56] LABS: Add Urine Microscopic? YES; Appearance Urine Cloudy (Clear); Bilirubin Urine Negative (Negative); Blood Urine Negative (Negative); Color Urine Amber (Yellow); Glucose Urine UA Negative (Negative); Ketones Urine Negative (Negative); Leukocyte Esterase Ur Trace LEU/UL (NEGATIVE); Nitrate Urine Negative (Negative); Protein Urine 1+ mg/dL (Negative); Specific Grav Ur 1.014 (1.001-1.035); Squamous Epithelial Cell Urine Rare /hpf (Few); Urobilinogen Urine Negative mg/dL (<2.0)
[2020-12-13 12:59] LABS: Hemoglobin A1C 5.5 % (<5.7)
[2020-12-13 13:06] LABS: Alanine Aminotransferase 38 U/L (4-50); Albumin Level 4.2 g/dL (3.5-5.1); Alkaline Phosphatase 59 U/L (38-126); Anion Gap 8 mmol/L (8-16); Aspartate Amino Transferase 47 U/L (17-59); Bilirubin,Total 0.9 mg/dL (0.2-1.3); Blood Urea Nitrogen 15 mg/dL (9-20); Carbon Dioxide 33 mmol/L (22-30); Chloride 99 mmol/L (98-107); Cholesterol 102 mg/dL (0-200); Estimated Glomerular Filt Rate 44; Glucose 97 mg/dL (75-110); HDL Direct 37 mg/dL; Potassium 3.1 mmol/L (3.4-5.0); Sodium 140 mmol/L (137-145); Triglycerides 78 mg/dL (<150)
[2020-12-13 13:17] LABS: LDL Cholesterol Direct 46 mg/dL
[2020-12-17 13:13] LABS: Testosterone Total 1157 ng/dL (250-1100)
[2020-12-18 11:07] LABS: Homocysteine 14.5 umol/L (<11.4)
[2020-12-19 05:08] LABS: Vitamin D 1,25 (OH)2 Total 40 pg/mL (18-72); Vitamin D2 1,25 (OH)2 <8 pg/mL; Vitamin D3 1,25 (OH)2 40 pg/mL
== END 2020-12-13 12:22 | disposition home or self-care (01) ==
PROVIDERS: PCP Internal Medicine; Visit Provider Internal Medicine
DX: E78.2 Mixed hyperlipidemia (principal); R79.89 Other specified abnormal findings of blood chemistry; E29.1 Testicular hypofunction; Z79.899 Other long term (current) drug therapy; I10 Essential (primary) hypertension; E55.9 Vitamin D deficiency, unspecified
CPT/HCPCS: 36415; 80053; 80061; 81001; 82652; 83036; 83090; 84403; 85025

== ENCOUNTER 2021-01-16 12:14 | Outpatient (CLI) | payer OTHER, SELFPAY ==
[2021-01-16 13:04] LABS: Anion Gap 8 mmol/L (8-16); Blood Urea Nitrogen 19 mg/dL (9-20); Calcium 9.7 mg/dL (8.4-10.2); Carbon Dioxide 29 mmol/L (22-30); Chloride 101 mmol/L (98-107); Estimated Glomerular Filt Rate 48; Glucose 148 mg/dL (75-110); Potassium 3.8 mmol/L (3.4-5.0); Sodium 138 mmol/L (137-145)
[2021-01-20 00:49] LABS: Testosterone Total 1773 ng/dL (250-1100)
== END 2021-01-16 12:15 | disposition home or self-care (01) ==
PROVIDERS: PCP Internal Medicine; Visit Provider Internal Medicine
DX: E87.6 Hypokalemia (principal); E29.1 Testicular hypofunction
CPT/HCPCS: 36415; 80048; 84403

== ENCOUNTER 2021-04-21 13:33 | Outpatient (CLI) | payer OTHER, SELFPAY ==
[2021-04-21 14:18] LABS: Basophils Absolute Auto 0.1 K/mm3 (0.0-0.1); Basophils Percent Auto 0.8 % (0.2-1.2); Eosinophils Absolute Auto 0.2 K/mm3 (0-0.3); Eosinophils Percent Auto 2.3 % (0-4.4); Hematocrit 50.6 % (42.0-52.0); Immature Granulocyte Absolute 0.02 K/mm3 (0.00-0.031); Immature Granulocyte Percent A 0.3 % (0-0.5); Lymphocytes Absolute Auto 0.98 K/mm3 (0.9-3.2); Lymphocytes Percent Auto 14.7 % (18.3-44.2); Mean Corpuscular HGB Conc 31.6 g/dl (32-36); Mean Corpuscular Hemoglobin 31.2 pg (26-34); Mean Corpuscular Volume 98.6 fl (80-100); Mean Platelet Volume 10.5 fl (7.4-10.4); Monocytes Absolute Auto 0.7 K/mm3 (0.1-0.6); Monocytes Percent Auto 9.8 % (2.6-8.5); Neutrophils Absolute Auto 4.8 K/mm3 (1.3-6.7); Neutrophils Percent Auto 72.1 % (45.5-73.1); Platelet Count Result 191 k/mm3 (150-375); Red Blood Count 5.13 M/mm3 (4.6-6.20); Red Cell Distribution Width 14.7 % (11.5-14.5); White Blood Count 6.7 K/mm3 (4.5-10.0)
[2021-04-21 14:30] LABS: Alanine Aminotransferase 37 U/L (4-50); Albumin Level 4.4 g/dL (3.5-5.1); Alkaline Phosphatase 52 U/L (38-126); Anion Gap 4 mmol/L (8-16); Aspartate Amino Transferase 38 U/L (17-59); Bilirubin,Total 0.5 mg/dL (0.2-1.3); Blood Urea Nitrogen 23 mg/dL (9-20); Calcium 9.3 mg/dL (8.4-10.2); Carbon Dioxide 28 mmol/L (22-30); Chloride 104 mmol/L (98-107); Cholesterol 112 mg/dL (0-200); Estimated Glomerular Filt Rate 44; Glucose 91 mg/dL (65-110); HDL Direct 44 mg/dL; Potassium 4.6 mmol/L (3.4-5.0); Sodium 136 mmol/L (137-145); Triglycerides 88 mg/dL (<150)
[2021-04-21 14:40] LABS: LDL Cholesterol Direct 50 mg/dL
[2021-04-21 17:57] LABS: Hemoglobin A1C 5.6 % (<5.7)
[2021-04-21 19:40] LABS: Prostate Specific Antigen 2.8 ng/mL (< OR = 4.0)
[2021-04-25 14:34] LABS: Testosterone Total 928 ng/dL (250-1100)
== END 2021-04-21 13:34 | disposition home or self-care (01) ==
PROVIDERS: PCP Internal Medicine; Visit Provider Internal Medicine
DX: E29.1 Testicular hypofunction (principal); Z79.899 Other long term (current) drug therapy; I10 Essential (primary) hypertension; Z12.5 Encounter for screening for malignant neoplasm of prostate
CPT/HCPCS: 36415; 80053; 80061; 83036; 84153; 84403; 85025; G0103

== ENCOUNTER 2021-08-07 12:34 | Outpatient (CLI) | payer MEDICARE, SELFPAY ==
[2021-08-07 13:08] LABS: Anion Gap 10 mmol/L (8-16); Blood Urea Nitrogen 54 mg/dL (9-20); Calcium 9.8 mg/dL (8.4-10.2); Carbon Dioxide 24 mmol/L (22-30); Chloride 102 mmol/L (98-107); Estimated Glomerular Filt Rate 30; Glucose 114 mg/dL (65-110); Potassium 4.9 mmol/L (3.4-5.0); Sodium 136 mmol/L (137-145)
[2021-08-07 13:22] LABS: Free T4 Free Thyroxine 1.03 ng/mL (0.78-2.19)
[2021-08-07 14:18] LABS: Folic Acid > 20.0 ng/mL (2.76->20)
== END 2021-08-07 12:35 | disposition home or self-care (01) ==
LOC: ANHLAB 12:36
PROVIDERS: PCP Internal Medicine; Visit Provider Internal Medicine
DX: E53.8 Deficiency of other specified B group vitamins (principal); I10 Essential (primary) hypertension; Z79.899 Other long term (current) drug therapy
CPT/HCPCS: 36415; 80048; 82607; 82746; 84439; 84443

== ENCOUNTER 2021-08-14 13:15 | Outpatient (CLI) | payer MEDICARE, SELFPAY ==
--- NOTE | ~2021-08-14 | US_ITS ---
EXAMINATION: US renal BI DATE: 08/14/2021 13:53 INDICATION: Renal mass on prior CT TECHNIQUE: Multiple grayscale and Doppler ultrasound images of the kidneys were obtained. COMPARISON: CT, 01/06/2020 FINDINGS: The right kidney measures 11.6 x 4.9 x 4.8 cm. There is a 4.5 cm cyst in the upper pole of the kidney and a 1.1 cm cyst in the lower pole of the kidney. The left kidney measures 10.9 x 4.9 x 5 .2 cm. The kidneys demonstrate normal parenchymal echogenicity. There is no hydronephrosis. The bladd er is normal. IMPRESSION: 1. Cysts of the right kidney. No suspicious renal mass identified. Reviewed, dictated and finalized at location F. TRONIC SCALE TESTER
[2021-08-14 14:52] LABS: Add Urine Microscopic? YES; Appearance Urine Clear (Clear); Bilirubin Urine Negative (Negative); Blood Urine Negative (Negative); Color Urine Yellow (Yellow); Glucose Urine UA Negative (Negative); Hyaline Casts Urine 15-19 /lpf; Ketones Urine Negative (Negative); Leukocyte Esterase Ur Negative LEU/UL (Negative); Mucus Urine Rare /lpf; Nitrate Urine Negative (Negative); Protein Urine Negative (Negative); RBC Urine 0-2 /hpf (0-2); Specific Grav Ur 1.016 (1.001-1.035); Squamous Epithelial Cell Urine Rare /hpf (Few); Urobilinogen Urine Negative mg/dL (<2.0); WBC Urine 0-3 /hpf
== END 2021-08-14 13:16 | disposition home or self-care (01) ==
LOC: ANHIMG 13:18
PROVIDERS: PCP Internal Medicine; Visit Provider Internal Medicine
DX: R79.89 Other specified abnormal findings of blood chemistry (principal); N28.1 Cyst of kidney, acquired
CPT/HCPCS: 76775; 81001

== ENCOUNTER 2021-09-24 10:48 | Outpatient (CLI) | payer MEDICARE, SELFPAY ==
[2021-09-24 11:19] LABS: Add Urine Microscopic? YES; Appearance Urine Clear (Clear); Bilirubin Urine Negative (Negative); Blood Urine Negative (Negative); Color Urine Amber (Yellow); Glucose Urine UA Negative (Negative); Ketones Urine Negative (Negative); Leukocyte Esterase Ur Trace LEU/UL (Negative); Mucus Urine Rare /lpf; Nitrate Urine Negative (Negative); Protein Urine Negative (Negative); RBC Urine 0-2 /hpf (0-2); Specific Grav Ur 1.019 (1.001-1.035); Squamous Epithelial Cell Urine Rare /hpf (Few); Urobilinogen Urine Negative mg/dL (<2.0)
[2021-09-24 11:24] LABS: Anion Gap 6 mmol/L (8-16); Blood Urea Nitrogen 23 mg/dL (9-20); Calcium 9.9 mg/dL (8.4-10.2); Carbon Dioxide 29 mmol/L (22-30); Chloride 103 mmol/L (98-107); Cholesterol 160 mg/dL (0-200); Estimated Glomerular Filt Rate 41; Glucose 106 mg/dL (65-110); HDL Direct 34 mg/dL; Potassium 4.5 mmol/L (3.4-5.0); Sodium 138 mmol/L (137-145); Triglycerides 131 mg/dL (<150)
[2021-09-24 11:35] LABS: LDL Cholesterol Direct 100 mg/dL
[2021-09-24 12:26] LABS: Hemoglobin A1C 5.8 % (<5.7)
== END 2021-09-24 10:49 | disposition home or self-care (01) ==
PROVIDERS: PCP Internal Medicine; Visit Provider Internal Medicine
DX: Z51.81 Encounter for therapeutic drug level monitoring (principal); Z79.899 Other long term (current) drug therapy; E78.2 Mixed hyperlipidemia; I10 Essential (primary) hypertension; R31.9 Hematuria, unspecified
CPT/HCPCS: 36415; 80048; 80061; 81001; 83036

== ENCOUNTER 2022-01-29 10:35 | Outpatient (CLI) | payer MEDICARE, SELFPAY ==
[2022-01-29 11:00] LABS: Basophils Absolute Auto 0.1 K/mm3 (0.0-0.1); Basophils Percent Auto 0.3 % (0.2-1.2); Eosinophils Percent Auto 0.2 % (0-4.4); Hematocrit 50.5 % (42.0-52.0); Hemoglobin 16.1 g/dL (14.0-18.0); Immature Granulocyte Absolute 0.13 K/mm3 (0.00-0.031); Immature Granulocyte Percent A 0.7 % (0-0.5); Lymphocytes Absolute Auto 0.76 K/mm3 (0.9-3.2); Lymphocytes Percent Auto 4.2 % (18.3-44.2); Mean Corpuscular HGB Conc 31.9 g/dl (32-36); Mean Corpuscular Hemoglobin 31.6 pg (26-34); Mean Corpuscular Volume 99.2 fl (80-100); Mean Platelet Volume 10.8 fl (7.4-10.4); Monocytes Absolute Auto 1.3 K/mm3 (0.1-0.6); Neutrophils Absolute Auto 15.8 K/mm3 (1.3-6.7); Neutrophils Percent Auto 87.6 % (45.5-73.1); Platelet Count Result 173 k/mm3 (150-375); Red Blood Count 5.09 M/mm3 (4.6-6.20); Red Cell Distribution Width 13.7 % (11.5-14.5)
[2022-01-29 11:11] LABS: Appearance Urine Cloudy (Clear); Bilirubin Urine Negative (Negative); Color Urine Yellow (Yellow); Glucose Urine UA Negative (Negative); Ketones Urine Negative (Negative); Leukocyte Esterase Ur 3+ LEU/UL (Negative); Nitrate Urine Negative (Negative); Protein Urine Trace mg/dL (Negative); Specific Grav Ur 1.025 (1.001-1.035); Urobilinogen Urine 0.2 mg/dL (<2.0); pH Urine 5.5 (5.0-9.0)
[2022-01-29 11:16] LABS: Bacteria Urine Trace /hpf; Mucus Urine Rare /lpf; WBC Clumps Urine Present /HPF; WBC Urine >75 /hpf
[2022-01-29 11:17] LABS: Add Urine Microscopic? YES; Blood Urine Trace-Intact (Negative)
[2022-01-29 11:26] LABS: Alanine Aminotransferase 29 U/L (6-50); Albumin Level 4.8 g/dL (3.5-5.1); Alkaline Phosphatase 57 U/L (38-126); Anion Gap 12 mmol/L (8-16); Aspartate Amino Transferase 28 U/L (17-59); Bilirubin,Total 1.5 mg/dL (0.2-1.3); Blood Urea Nitrogen 41 mg/dL (9-20); Calcium 9.3 mg/dL (8.4-10.2); Carbon Dioxide 24 mmol/L (22-30); Chloride 100 mmol/L (98-107); Cholesterol 86 mg/dL (0-200); Estimated Glomerular Filt Rate 28; Glucose 110 mg/dL (65-110); HDL Direct 30 mg/dL; Potassium 4.6 mmol/L (3.4-5.0); Sodium 136 mmol/L (137-145); Triglycerides 77 mg/dL (<150)
[2022-01-29 11:42] LABS: Hemoglobin A1C 5.5 % (<5.7)
[2022-01-29 11:56] LABS: Free T4 Free Thyroxine 1.28 ng/mL (0.78-2.19)
[2022-01-29 12:05] LABS: LDL Cholesterol Direct < 30 mg/dL
[2022-02-01 11:06] LABS: Testosterone Total 518 ng/dL (250-1100)
== END 2022-01-29 10:36 | disposition home or self-care (01) ==
LOC: ANHLAB 10:36
PROVIDERS: PCP Internal Medicine; Visit Provider Internal Medicine
DX: N39.0 Urinary tract infection, site not specified (principal); E29.1 Testicular hypofunction; I10 Essential (primary) hypertension; E78.2 Mixed hyperlipidemia; Z13.29 Encounter for screening for other suspected endocrine disorder; Z79.899 Other long term (current) drug therapy
CPT/HCPCS: 36415; 80053; 80061; 81001; 83036; 84403; 84439; 84443; 85025; 87077; 87086; 87186

== ENCOUNTER 2022-02-05 14:27 | Outpatient (CLI) | payer MEDICARE, SELFPAY ==
[2022-02-05 14:51] LABS: Basophils Absolute Auto 0.1 K/mm3 (0.0-0.1); Basophils Percent Auto 0.6 % (0.2-1.2); Eosinophils Absolute Auto 0.3 K/mm3 (0-0.3); Eosinophils Percent Auto 2.9 % (0-4.4); Hematocrit 50.4 % (42.0-52.0); Hemoglobin 15.8 g/dL (14.0-18.0); Immature Granulocyte Absolute 0.09 K/mm3 (0.00-0.031); Immature Granulocyte Percent A 0.9 % (0-0.5); Lymphocytes Absolute Auto 1.62 K/mm3 (0.9-3.2); Lymphocytes Percent Auto 16.1 % (18.3-44.2); Mean Corpuscular HGB Conc 31.3 g/dl (32-36); Mean Corpuscular Hemoglobin 30.8 pg (26-34); Mean Corpuscular Volume 98.2 fl (80-100); Mean Platelet Volume 10.7 fl (7.4-10.4); Monocytes Absolute Auto 0.9 K/mm3 (0.1-0.6); Monocytes Percent Auto 9.2 % (2.6-8.5); Neutrophils Absolute Auto 7.1 K/mm3 (1.3-6.7); Neutrophils Percent Auto 70.3 % (45.5-73.1); Platelet Count Result 259 k/mm3 (150-375); Red Blood Count 5.13 M/mm3 (4.6-6.20); Red Cell Distribution Width 13.7 % (11.5-14.5); White Blood Count 10.1 K/mm3 (4.5-10.0)
[2022-02-05 16:19] LABS: Add Urine Microscopic? YES; Appearance Urine Clear (Clear); Bilirubin Urine Negative (Negative); Blood Urine Negative (Negative); Color Urine Yellow (Yellow); Glucose Urine UA Negative (Negative); Ketones Urine Negative (Negative); Leukocyte Esterase Ur Trace LEU/UL (Negative); Nitrate Urine Negative (Negative); Protein Urine Negative (Negative); Urobilinogen Urine 0.2 mg/dL (<2.0); pH Urine 5.5 (5.0-9.0)
== END 2022-02-05 14:28 | disposition home or self-care (01) ==
LOC: ANHLAB 14:29
PROVIDERS: PCP Internal Medicine; Visit Provider Internal Medicine
DX: I10 Essential (primary) hypertension (principal); N39.0 Urinary tract infection, site not specified
CPT/HCPCS: 36415; 81001; 85025

== ENCOUNTER 2022-05-14 10:57 | Outpatient (CLI) | payer MEDICARE, SELFPAY ==
[2022-05-14 12:03] LABS: Alanine Aminotransferase 30 U/L (6-50); Albumin Level 4.4 g/dL (3.5-5.1); Alkaline Phosphatase 49 U/L (38-126); Anion Gap 10 mmol/L (8-16); Aspartate Amino Transferase 34 U/L (17-59); Bilirubin,Total 0.5 mg/dL (0.2-1.3); Blood Urea Nitrogen 32 mg/dL (9-20); Calcium 9.5 mg/dL (8.4-10.2); Carbon Dioxide 23 mmol/L (22-30); Chloride 107 mmol/L (98-107); Cholesterol 95 mg/dL (0-200); Estimated Glomerular Filt Rate 34; Glucose 86 mg/dL (65-110); HDL Direct 29 mg/dL; Potassium 4.9 mmol/L (3.4-5.0); Sodium 140 mmol/L (137-145); Triglycerides 110 mg/dL (<150)
[2022-05-14 12:13] LABS: LDL Cholesterol Direct 36 mg/dL
[2022-05-14 12:33] LABS: Prostate Specific Antigen 3.1 ng/mL (< OR = 4.0)
[2022-05-19 11:29] LABS: Testosterone Total 902 ng/dL (250-1100)
== END 2022-05-14 10:58 | disposition home or self-care (01) ==
PROVIDERS: PCP Internal Medicine; Visit Provider Internal Medicine
DX: E29.1 Testicular hypofunction (principal); Z12.5 Encounter for screening for malignant neoplasm of prostate; I15.9 Secondary hypertension, unspecified; E55.9 Vitamin D deficiency, unspecified
CPT/HCPCS: 36415; 80053; 80061; 82306; 84153; 84403; G0103

== ENCOUNTER 2022-08-28 15:17 | Emergency (ER) | payer MEDICARE, SELFPAY ==
--- NOTE | ~2022-08-28 | US_ITS ---
Duplex Sonography of the right extremity: Indication: Pain and swelling Findings: Sagittal and transverse B-mode images as well as color-flow imaging were performed on the r ight femoral and popliteal veins. B-mode examination was done without and with compression in the tr ansverse plane. There is good visualization of the common femoral, proximal profunda femoral, superf icial femoral, greater saphenous, and popliteal veins. Normal flow was seen on color-flow imaging. N ormal compressibility was demonstrated. Right posterior tibial and peroneal veins are also patent. Impression: No evidence of deep vein thrombosis involving the right lower extremity. Reviewed, dictated and finalized at location M. CH LOGISTICS SUPERVISOR Impression: No evidence of deep vein thrombosis involving the right lower extremity.
[2022-08-28 15:19] VITALS: BP 166/101; PULSE 87; RESP 20; TEMP 36.7; O2SAT 99
--- NOTE | 2022-08-28 16:25 | ED.EXTPRO ---
HPI - Extremity Problem General Chief complaint: Extremity Problem,Nontraumatic Stated complaint: right foot issues Time Seen by Provider: 08/28/22 16:11 History of Present Illness HPI Narrative: Patient is a 62-year-old male presenting with right leg swelling. Patient states that he has suffered from intermittent lymphedema for the last several years after having a stroke. Patient states that normally resolves on his own but his right foot has been swollen for the last couple of days now. States that it is slightly red. States that it hurts on the lateral aspect of his foot if he walks on it. Patient mentioned his symptoms to his and PCP who urged him to come to the ER for further evaluation. Patient states that he is just sitting that his foot does not hurt. He denies any fevers, chest pain, lightheadedness, shortness of breath. Denies injuries or further complaints. Related Data Allergies Allergy/AdvReac Type Severity Reaction Status Date / Time latex Allergy Unknown Unknown Verified 05/21/22 13:49 adhesive AdvReac Mild Other Verified 05/21/22 13:49 Review of Systems Review of Systems: All systems reviewed & are unremarkable except as noted in HPI and below PMFSH Past Medical History Medical History A-fib (Unknown) Chronic atrial fibrillation Abscess Perineal abscess status post I&D in August of 2018 Benign essential hypertension BMI 39.0-39.9,adult Body mass index (BMI) 40.0-44.9, adult (Unknown) Chronic diastolic heart failure (Unknown) Chronic low back pain Chronic pain CKD (chronic kidney disease) Conn's syndrome HYPERALDOSTERONISM DJD (degenerative joint disease) Elevated homocysteine Encounter for Medicare annual wellness exam Encounter for preventive health examination Encounter for special screening examination for neoplasm of prostate Essential (primary) hypertension Hearing loss History of CVA (cerebrovascular accident) August of 2018 History of kidney stones History of reduction of nasal fracture Hx of colonic polyps (Unknown) Hyperlipidemia Hyperlipidemia Hypogonadism in male Lymphedema Mild reactive airways disease Obstructive sleep apnea treated with continuous positive airway pressure (CPAP) (Unknown) 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 HERI on CPAP Other iron deficiency anemias Primary osteoarthritis of right knee Renal cyst Right ankle pain Right foot pain Scrotal abscess Umbilical hernia (Unknown) UTI (urinary tract infection) Vision changes Vitamin D deficiency Vitamin D deficiency Surgical History Surgical History History of hernia repair Open right inguinal hernia repair with mesh estimated in 2004 History of knee surgery bilateral Hx laparoscopic cholecystectomy Hx of colonoscopy S/P cholecystectomy Family History Family History Father Family history of obesity Hypertension Esophageal cancer Mother Family history of malignant neoplasm of breast in first degree relative Social History Social History Smoking status: Never smoker Alcohol intake: current Alcohol use details: Occasional alcohol, rare in recent years Substance use: never Substance use type: does not use Additional living arrangements comments: Lives with his . Additional occupation/education comments: Currently on disability after his stroke in August of 2018. Previously worked at [employer]. Gender identity (if verbalized by the patient): Male Spiritual care concerns: No Agree to blood products: Yes Exam Narrative: GENERAL: Well-appearing, well-nourished, and in no acute distress. HEAD: Normocephalic, atraumatic. EYES: PERRLA and EOMI. ENT: Nares clear, no rhinorrhea or epistaxis. Mucous membranes moist. NECK: Supple. CHEST: Cl
== END 2022-08-28 16:45 | disposition home or self-care (01) ==
PROVIDERS: Emergency Provider Emergency Medicine; PCP Internal Medicine
DX: L03.115 Cellulitis of right lower limb (principal); I48.20 Chronic atrial fibrillation, unspecified; I11.0 Hypertensive heart disease with heart failure; I50.9 Heart failure, unspecified; I13.0 Hypertensive heart and chronic kidney disease with heart failure and stage 1 through stage 4 chronic kidney disease, or unspecified chronic kidney disease; N18.9 Chronic kidney disease, unspecified; E26.01 Conn's syndrome; J45.909 Unspecified asthma, uncomplicated; G47.33 Obstructive sleep apnea (adult) (pediatric); M17.11 Unilateral primary osteoarthritis, right knee; E55.9 Vitamin D deficiency, unspecified; Z87.442 Personal history of urinary calculi; Z86.010 Personal history of colon polyps; Z87.440 Personal history of urinary (tract) infections; Z86.73 Personal history of transient ischemic attack (TIA), and cerebral infarction without residual deficits
CPT/HCPCS: 93971; 99284

== ENCOUNTER 2022-09-21 11:46 | Outpatient (CLI) | payer MEDICARE, SELFPAY ==
[2022-09-21 12:10] LABS: Basophils Percent Auto 0.5 % (0.2-1.2); Eosinophils Absolute Auto 0.2 K/mm3 (0-0.3); Hematocrit 50.5 % (42.0-52.0); Immature Granulocyte Absolute 0.03 K/mm3 (0.00-0.031); Immature Granulocyte Percent A 0.4 % (0-0.5); Lymphocytes Absolute Auto 1.13 K/mm3 (0.9-3.2); Mean Corpuscular HGB Conc 31.7 g/dl (32-36); Mean Corpuscular Hemoglobin 31.1 pg (26-34); Mean Corpuscular Volume 98.2 fl (80-100); Mean Platelet Volume 10.7 fl (7.4-10.4); Monocytes Absolute Auto 0.7 K/mm3 (0.1-0.6); Monocytes Percent Auto 8.4 % (2.6-8.5); Neutrophils Absolute Auto 5.9 K/mm3 (1.3-6.7); Neutrophils Percent Auto 73.7 % (45.5-73.1); Platelet Count Result 196 k/mm3 (150-375); Red Blood Count 5.14 M/mm3 (4.6-6.20); Red Cell Distribution Width 14.3 % (11.5-14.5); White Blood Count 8.1 K/mm3 (4.5-10.0)
[2022-09-21 12:10] LABS: Appearance Urine Clear (Clear); Bilirubin Urine Negative (Negative); Blood Urine Negative (Negative); Color Urine Yellow (Yellow); Glucose Urine UA Negative (Negative); Ketones Urine Negative (Negative); Leukocyte Esterase Ur Negative LEU/UL (Negative); Nitrate Urine Negative (Negative); Protein Urine Trace mg/dL (Negative); Urobilinogen Urine 0.2 mg/dL (<2.0); pH Urine 5.5 (5.0-9.0)
[2022-09-21 12:12] LABS: Bacteria Urine Trace /hpf; Mucus Urine Rare /lpf; RBC Urine 0-2 /hpf (0-2); Squamous Epithelial Cell Urine Rare /hpf (Few); WBC Urine 0-3 /hpf
[2022-09-21 12:16] LABS: Add Urine Microscopic? YES
[2022-09-21 12:21] LABS: Alanine Aminotransferase 38 U/L (6-50); Albumin Level 4.4 g/dL (3.5-5.1); Alkaline Phosphatase 48 U/L (38-126); Anion Gap 5 mmol/L (8-16); Aspartate Amino Transferase 31 U/L (17-59); Bilirubin,Total 0.6 mg/dL (0.2-1.3); Blood Urea Nitrogen 22 mg/dL (9-20); Calcium 8.9 mg/dL (8.4-10.2); Carbon Dioxide 28 mmol/L (22-30); Chloride 103 mmol/L (98-107); Cholesterol 97 mg/dL (0-200); Estimated Glomerular Filt Rate 41; Glucose 123 mg/dL (65-110); HDL Direct 37 mg/dL; Potassium 4.6 mmol/L (3.4-5.0); Sodium 136 mmol/L (137-145); Triglycerides 79 mg/dL (<150)
[2022-09-21 12:32] LABS: LDL Cholesterol Direct 43 mg/dL
[2022-09-21 12:50] LABS: Hemoglobin A1C 5.6 % (<5.7)
[2022-09-21 13:11] LABS: Free T4 Free Thyroxine 1.11 ng/mL (0.78-2.19); Vitamin D 25 Hydroxy 70.3 ng/mL
== END 2022-09-21 11:47 | disposition home or self-care (01) ==
PROVIDERS: PCP Internal Medicine; Visit Provider Internal Medicine
DX: Z13.29 Encounter for screening for other suspected endocrine disorder (principal); R73.02 Impaired glucose tolerance (oral); E78.2 Mixed hyperlipidemia; E55.9 Vitamin D deficiency, unspecified; I10 Essential (primary) hypertension; Z79.899 Other long term (current) drug therapy
CPT/HCPCS: 36415; 80053; 80061; 81001; 82306; 83036; 84439; 84443; 85025

== ENCOUNTER 2023-01-06 09:35 | Outpatient (CLI) | payer MEDICARE, SELFPAY ==
[2023-01-06 10:06] LABS: Basophils Absolute Auto 0.1 K/mm3 (0.0-0.1); Basophils Percent Auto 0.9 % (0.2-1.2); Eosinophils Absolute Auto 0.2 K/mm3 (0-0.3); Eosinophils Percent Auto 3.1 % (0-4.4); Hematocrit 51.9 % (42.0-52.0); Hemoglobin 16.4 g/dL (14.0-18.0); Immature Granulocyte Absolute 0.01 K/mm3 (0.00-0.031); Immature Granulocyte Percent A 0.2 % (0-0.5); Lymphocytes Absolute Auto 0.98 K/mm3 (0.9-3.2); Lymphocytes Percent Auto 16.8 % (18.3-44.2); Mean Corpuscular HGB Conc 31.6 g/dl (32-36); Mean Corpuscular Volume 98.1 fl (80-100); Monocytes Absolute Auto 0.6 K/mm3 (0.1-0.6); Monocytes Percent Auto 10.8 % (2.6-8.5); Neutrophils Percent Auto 68.2 % (45.5-73.1); Platelet Count Result 185 k/mm3 (150-375); Red Blood Count 5.29 M/mm3 (4.6-6.20); Red Cell Distribution Width 15.6 % (11.5-14.5); White Blood Count 5.9 K/mm3 (4.5-10.0)
[2023-01-06 10:16] LABS: Hemoglobin A1C 5.5 % (<5.7)
[2023-01-06 10:28] LABS: Alanine Aminotransferase 31 U/L (6-50); Albumin Level 4.6 g/dL (3.5-5.1); Alkaline Phosphatase 48 U/L (38-126); Anion Gap 6 mmol/L (8-16); Aspartate Amino Transferase 31 U/L (17-59); Bilirubin,Total 0.7 mg/dL (0.2-1.3); Blood Urea Nitrogen 38 mg/dL (9-20); Calcium 9.8 mg/dL (8.4-10.2); Carbon Dioxide 30 mmol/L (22-30); Chloride 104 mmol/L (98-107); Cholesterol 93 mg/dL (0-200); Estimated Glomerular Filt Rate 38; Glucose 97 mg/dL (65-110); HDL Direct 30 mg/dL; Potassium 4.9 mmol/L (3.4-5.0); Sodium 140 mmol/L (137-145); Triglycerides 94 mg/dL (<150)
[2023-01-06 10:39] LABS: LDL Cholesterol Direct 46 mg/dL
[2023-01-06 12:00] LABS: Iron 81 ug/dL (49-181)
[2023-01-06 12:11] LABS: Percent Iron Saturation 20 % (20-50)
[2023-01-06 12:18] LABS: Free T4 Free Thyroxine 1.15 ng/mL (0.78-2.19)
[2023-01-10 10:50] LABS: Testosterone Total 889 ng/dL (250-1100)
== END 2023-01-06 09:36 | disposition home or self-care (01) ==
LOC: ANHLAB 09:36
PROVIDERS: PCP Internal Medicine; Visit Provider Internal Medicine
DX: I10 Essential (primary) hypertension (principal); Z13.29 Encounter for screening for other suspected endocrine disorder; Z79.899 Other long term (current) drug therapy; D64.9 Anemia, unspecified; E78.2 Mixed hyperlipidemia; R73.02 Impaired glucose tolerance (oral)
CPT/HCPCS: 36415; 80053; 80061; 82728; 83036; 83540; 83550; 84403; 84439; 84443; 85025

== ENCOUNTER 2023-01-15 15:31 | Outpatient (CLI) | payer MEDICARE, SELFPAY ==
--- NOTE | ~2023-01-15 | US_ITS ---
US renal BI 01/15/2023 16:04 Procedure: Realtime transabdominal ultrasound of the kidneys and bladder. Indication: Chronic kidney disease Comparison: 08/14/2021 Findings: Renal echotexture is normal bilaterally without hydronephrosis, contour deforming mass or r enal calculus. There is a large right renal cyst measuring 5.7 cm. No solid renal masses. The right k idney measures 11.6 cm and left kidney measures 12.3 cm. Bladder within normal limits. Impression: 1: Right renal cyst measuring 5.7 cm. Reviewed, dictated and finalized at location B. Impression: 1: Right renal cyst measuring 5.7 cm.
== END 2023-01-15 15:32 | disposition home or self-care (01) ==
LOC: ANHIMG 15:33
PROVIDERS: PCP Internal Medicine; Visit Provider Internal Medicine
DX: I12.9 Hypertensive chronic kidney disease with stage 1 through stage 4 chronic kidney disease, or unspecified chronic kidney disease (principal); N18.9 Chronic kidney disease, unspecified; N28.1 Cyst of kidney, acquired
CPT/HCPCS: 76775

== ENCOUNTER 2023-02-05 13:14 | Outpatient (CLI) | payer MEDICARE, SELFPAY ==
[2023-02-05 14:07] LABS: Basophils Percent Auto 0.5 % (0.2-1.2); Eosinophils Absolute Auto 0.2 K/mm3 (0-0.3); Eosinophils Percent Auto 3.5 % (0-4.4); Hematocrit 53.6 % (42.0-52.0); Hemoglobin 16.8 g/dL (14.0-18.0); Immature Granulocyte Absolute 0.04 K/mm3 (0.00-0.031); Immature Granulocyte Percent A 0.6 % (0-0.5); Lymphocytes Absolute Auto 1.04 K/mm3 (0.9-3.2); Lymphocytes Percent Auto 16.5 % (18.3-44.2); Mean Corpuscular HGB Conc 31.3 g/dl (32-36); Mean Corpuscular Volume 98.9 fl (80-100); Mean Platelet Volume 10.7 fl (7.4-10.4); Monocytes Absolute Auto 0.6 K/mm3 (0.1-0.6); Monocytes Percent Auto 9.7 % (2.6-8.5); Neutrophils Absolute Auto 4.4 K/mm3 (1.3-6.7); Neutrophils Percent Auto 69.2 % (45.5-73.1); Platelet Count Result 180 k/mm3 (150-375); Red Blood Count 5.42 M/mm3 (4.6-6.20); Red Cell Distribution Width 15.3 % (11.5-14.5); White Blood Count 6.3 K/mm3 (4.5-10.0)
[2023-02-05 14:19] LABS: Anion Gap 6 mmol/L (8-16); Blood Urea Nitrogen 24 mg/dL (9-20); Carbon Dioxide 31 mmol/L (22-30); Chloride 103 mmol/L (98-107); Estimated Glomerular Filt Rate 41; Glucose 137 mg/dL (65-110); Potassium 4.9 mmol/L (3.4-5.0); Sodium 140 mmol/L (137-145)
== END 2023-02-05 13:15 | disposition home or self-care (01) ==
PROVIDERS: PCP Internal Medicine; Visit Provider Internal Medicine
DX: I10 Essential (primary) hypertension (principal)
CPT/HCPCS: 36415; 80048; 85025

== ENCOUNTER 2023-05-08 13:49 | Outpatient (CLI) | payer MEDICARE, SELFPAY ==
[2023-05-08 14:14] LABS: Creatinine Urine 236.4 mg/dL; Total Protein Urine Random 9 mg/dL; Ur Ttl Prot Creatinine Ratio 0.04 mg/mg (0-0.20)
[2023-05-08 14:15] LABS: Sodium Urine Random 6 meq/L
[2023-05-08 14:19] LABS: Albumin Level 4.4 g/dL (3.5-5.1); Anion Gap 7 mmol/L (8-16); Blood Urea Nitrogen 24 mg/dL (9-20); Calcium 9.4 mg/dL (8.4-10.2); Carbon Dioxide 29 mmol/L (22-30); Chloride 103 mmol/L (98-107); Creatine Kinase 128 U/L (55-170); Estimated Glomerular Filt Rate 47; Glucose 121 mg/dL (65-110); Phosphorus 3.5 mg/dL (2.5-4.5); Potassium 4.4 mmol/L (3.4-5.0); Sodium 139 mmol/L (137-145)
[2023-05-08 14:25] LABS: Complement C3 111 mg/dL (88-165)
[2023-05-11 11:07] LABS: Albumin 4.1 g/dL (3.8-4.8); Alpha 1 Globulin 0.3 g/dL (0.2-0.3); Alpha 2 Globulin 0.7 g/dL (0.5-0.9); Beta 1 Globulin 0.5 g/dL (0.4-0.6); Gamma Globulin 1.3 g/dL (0.8-1.7); Protein, Total 7.2 g/dL (6.1-8.1)
[2023-05-12 02:20] LABS: Anti Glomerular Basement Memb <1.0 AI (<1.0)
[2023-05-15 03:48] LABS: Creatinine, Random Urine 213 mg/dL (20-320); Total Protein/Creatinine Ratio 108 mg/g creat (25-148)
[2023-05-15 14:23] LABS: ANCA Screen Negative (Negative)
== END 2023-05-08 13:50 | disposition home or self-care (01) ==
PROVIDERS: PCP Internal Medicine; Visit Provider Internal Medicine Nephrology
DX: I12.9 Hypertensive chronic kidney disease with stage 1 through stage 4 chronic kidney disease, or unspecified chronic kidney disease (principal); N18.32 Chronic kidney disease, stage 3b
CPT/HCPCS: 36415; 80069; 82550; 82570; 83520; 84155; 84156; 84165; 84166; 84300; 86036; 86038; 86039; 86160; 86225

== ENCOUNTER 2023-09-08 15:11 | Outpatient (CLI) | payer MEDICARE, SELFPAY ==
[2023-09-08 15:53] LABS: Creatinine Urine 22.2 mg/dL; Total Protein Urine Random 9 mg/dL; Ur Ttl Prot Creatinine Ratio 0.41 mg/mg (0-0.20)
[2023-09-08 16:00] LABS: Albumin Level 4.5 g/dL (3.5-5.1); Anion Gap 9 mmol/L (8-16); Blood Urea Nitrogen 26 mg/dL (9-20); Calcium 9.8 mg/dL (8.4-10.2); Carbon Dioxide 28 mmol/L (22-30); Chloride 102 mmol/L (98-107); Estimated Glomerular Filt Rate 38; Glucose 93 mg/dL (65-110); Phosphorus 3.6 mg/dL (2.5-4.5); Potassium 4.1 mmol/L (3.4-5.0); Sodium 139 mmol/L (137-145)
[2023-09-08 16:12] LABS: Parathyroid Intact 30.3 pg/mL (7.5-53.5)
[2023-09-08 16:29] LABS: Vitamin D 25 Hydroxy 81.6 ng/mL
== END 2023-09-08 15:12 | disposition home or self-care (01) ==
LOC: ANHLAB 15:12
PROVIDERS: PCP Internal Medicine; Visit Provider Internal Medicine Nephrology
DX: I12.9 Hypertensive chronic kidney disease with stage 1 through stage 4 chronic kidney disease, or unspecified chronic kidney disease (principal); N18.31 Chronic kidney disease, stage 3a; N25.81 Secondary hyperparathyroidism of renal origin; E55.9 Vitamin D deficiency, unspecified
CPT/HCPCS: 36415; 80069; 82306; 82570; 83970; 84156

== ENCOUNTER 2023-10-18 13:19 | Outpatient (CLI) | payer MEDICARE, SELFPAY ==
--- NOTE | ~2023-10-18 | XR_ITS ---
EXAMINATION: XR foot RT min 3V DATE: 10/18/2023 13:59 INDICATION: Right foot cellulitis TECHNIQUE: Dorsoplantar, two oblique and lateral views of the right foot were obtained. COMPARISON: Right ankle radiographs dated 08/25/2018 FINDINGS: Bone alignment is normal. No fracture. Fore polyarticular osteoarthritis in the mid and forefoot, mil d at several of the tarsal metatarsal joints and minimal at the first metatarsophalangeal and a few i nterphalangeal joints. No cortical erosions, osteolysis or periosteal reaction to suggest osteomyelit is. Scattered enthesophytes and enthesopathic ossification at the posterior tuberosity of the calcane us, the medial and lateral malleoli, base of the fifth metatarsal and lateral base of the first proxi mal phalanx. No significant change in a couple chronic heterotopic ossicles along the plantar aponeur osis. There is soft tissue swelling about the ankle and hindfoot most prominent dorsolaterally. No an kle joint effusion. IMPRESSION: 1. Soft tissue swelling about the right ankle and hindfoot with no evident osteolysis or other acute osseous abnormality. 2. Degenerative skeletal changes including minimal to mild polyarticular osteoarthritis in the mid an d forefoot and scattered enthesophytes. Reviewed, dictated and finalized at location A. [employer]S IMPRESSION: 1. Soft tissue swelling about the right ankle and hindfoot with no evident oste olysis or other acute osseous abnormality. 2. Degenerative skeletal changes including minimal to mild polyarticular osteoa rthritis in the mid and forefoot and scattered enthesophytes.
[2023-10-18 14:17] LABS: Basophils Percent Auto 0.4 % (0.2-1.2); Eosinophils Absolute Auto 0.2 K/mm3 (0-0.3); Eosinophils Percent Auto 1.7 % (0-4.4); Hematocrit 50.4 % (42.0-52.0); Hemoglobin 15.7 g/dL (14.0-18.0); Immature Granulocyte Absolute 0.04 K/mm3 (0.00-0.031); Immature Granulocyte Percent A 0.4 % (0-0.5); Lymphocytes Absolute Auto 1.13 K/mm3 (0.9-3.2); Lymphocytes Percent Auto 10.8 % (18.3-44.2); Mean Corpuscular HGB Conc 31.2 g/dl (32-36); Mean Corpuscular Hemoglobin 30.3 pg (26-34); Mean Corpuscular Volume 97.3 fl (80-100); Mean Platelet Volume 10.4 fl (7.4-10.4); Monocytes Absolute Auto 1.3 K/mm3 (0.1-0.6); Monocytes Percent Auto 11.9 % (2.6-8.5); Neutrophils Absolute Auto 7.8 K/mm3 (1.3-6.7); Neutrophils Percent Auto 74.8 % (45.5-73.1); Platelet Count Result 308 k/mm3 (150-375); Red Blood Count 5.18 M/mm3 (4.6-6.20); Red Cell Distribution Width 14.1 % (11.5-14.5); White Blood Count 10.5 K/mm3 (4.5-10.0)
[2023-10-18 14:22] LABS: CRP 3.2 mg/dL (<1.0); Uric Acid 8.4 mg/dL (3.5-8.5)
[2023-10-18 15:52] LABS: Erythrocyte Sedimentation Rate 13 mm/hr (0-20)
== END 2023-10-18 13:20 | disposition home or self-care (01) ==
LOC: ANHLAB 13:23
PROVIDERS: PCP Internal Medicine; Visit Provider Internal Medicine
DX: L03.90 Cellulitis, unspecified (principal)
CPT/HCPCS: 36415; 73630; 84550; 85025; 85652; 86140

== ENCOUNTER 2023-12-31 13:20 | Outpatient (CLI) | payer MEDICARE, SELFPAY ==
[2023-12-31 14:37] LABS: Albumin Level 4.6 g/dL (3.5-5.1); Anion Gap 7 mmol/L (4-12); Blood Urea Nitrogen 26 mg/dL (9-20); Calcium 9.7 mg/dL (8.4-10.2); Carbon Dioxide 29 mmol/L (22-30); Chloride 104 mmol/L (98-107); Estimated Glomerular Filt Rate 44; Glucose 104 mg/dL (65-110); Phosphorus 3.6 mg/dL (2.5-4.5); Potassium 4.1 mmol/L (3.4-5.0); Sodium 140 mmol/L (137-145)
[2023-12-31 15:11] LABS: Creatinine Urine 245.6 mg/dL
[2023-12-31 15:16] LABS: Total Protein Urine Random < 5 mg/dL
[2023-12-31 15:17] LABS: Ur Ttl Prot Creatinine Ratio < 0.02 mg/mg (0-0.20)
== END 2023-12-31 13:21 | disposition home or self-care (01) ==
LOC: ANHLAB 13:21
PROVIDERS: PCP Internal Medicine; Visit Provider Internal Medicine Nephrology
DX: I12.9 Hypertensive chronic kidney disease with stage 1 through stage 4 chronic kidney disease, or unspecified chronic kidney disease (principal); N18.32 Chronic kidney disease, stage 3b
CPT/HCPCS: 36415; 80069; 82570; 84156

== ENCOUNTER 2024-01-21 11:51 | Outpatient (CLI) | payer MEDICARE, SELFPAY ==
[2024-01-21 12:31] LABS: Basophils Percent Auto 0.7 % (0.2-1.2); Eosinophils Absolute Auto 0.2 K/mm3 (0-0.3); Eosinophils Percent Auto 3.6 % (0-4.4); Hematocrit 49.3 % (42.0-52.0); Hemoglobin 15.6 g/dL (14.0-18.0); Immature Granulocyte Absolute 0.02 K/mm3 (0.00-0.031); Immature Granulocyte Percent A 0.3 % (0-0.5); Lymphocytes Absolute Auto 0.94 K/mm3 (0.9-3.2); Lymphocytes Percent Auto 15.9 % (18.3-44.2); Mean Corpuscular HGB Conc 31.6 g/dl (32-36); Mean Corpuscular Hemoglobin 30.8 pg (26-34); Mean Corpuscular Volume 97.2 fl (80-100); Mean Platelet Volume 10.5 fl (7.4-10.4); Monocytes Absolute Auto 0.5 K/mm3 (0.1-0.6); Neutrophils Absolute Auto 4.2 K/mm3 (1.3-6.7); Neutrophils Percent Auto 70.5 % (45.5-73.1); Platelet Count Result 219 k/mm3 (150-375); Red Blood Count 5.07 M/mm3 (4.6-6.20); Red Cell Distribution Width 15.8 % (11.5-14.5); White Blood Count 5.9 K/mm3 (4.5-10.0)
[2024-01-21 12:41] LABS: Alanine Aminotransferase 23 U/L (6-50); Albumin Level 4.4 g/dL (3.5-5.1); Alkaline Phosphatase 59 U/L (38-126); Anion Gap 10 mmol/L (4-12); Aspartate Amino Transferase 24 U/L (17-59); Bilirubin,Total 0.6 mg/dL (0.2-1.3); Blood Urea Nitrogen 25 mg/dL (9-20); Calcium 9.6 mg/dL (8.4-10.2); Carbon Dioxide 25 mmol/L (22-30); Chloride 105 mmol/L (98-107); Cholesterol 147 mg/dL (0-200); Estimated Glomerular Filt Rate 47; Glucose 121 mg/dL (65-110); HDL Direct 32 mg/dL; Potassium 4.4 mmol/L (3.4-5.0); Sodium 140 mmol/L (137-145); Triglycerides 92 mg/dL (<150)
[2024-01-21 12:46] LABS: Hemoglobin A1C 5.4 % (<5.7)
[2024-01-21 12:54] LABS: LDL Cholesterol Direct 102 mg/dL
[2024-01-21 13:02] LABS: Free T4 Free Thyroxine 1.25 ng/mL (0.78-2.19)
[2024-01-21 13:11] LABS: Prostate Specific Antigen 3.8 ng/mL (< OR = 4.0)
== END 2024-01-21 11:52 | disposition home or self-care (01) ==
LOC: ANHLAB 11:55
PROVIDERS: PCP Internal Medicine; Visit Provider Internal Medicine
DX: I48.91 Unspecified atrial fibrillation (principal); Z79.899 Other long term (current) drug therapy; Z13.29 Encounter for screening for other suspected endocrine disorder; R73.02 Impaired glucose tolerance (oral); E78.2 Mixed hyperlipidemia; Z12.5 Encounter for screening for malignant neoplasm of prostate; Z90.49 Acquired absence of other specified parts of digestive tract; I10 Essential (primary) hypertension
CPT/HCPCS: 36415; 80053; 80061; 83036; 84153; 84439; 84443; 85025; G0103

== ENCOUNTER 2024-05-02 12:53 | Outpatient (CLI) | payer MEDICARE, SELFPAY ==
[2024-05-02 13:59] LABS: Albumin Level 4.3 g/dL (3.5-5.1); Anion Gap 11 mmol/L (4-12); Blood Urea Nitrogen 18 mg/dL (9-20); Carbon Dioxide 29 mmol/L (22-30); Chloride 99 mmol/L (98-107); Estimated Glomerular Filt Rate 47; Glucose 108 mg/dL (65-110); Phosphorus 3.1 mg/dL (2.5-4.5); Potassium 4.2 mmol/L (3.4-5.0); Sodium 139 mmol/L (137-145)
[2024-05-02 14:58] LABS: Creatinine Urine 295.5 mg/dL; Total Protein Urine Random 12 mg/dL; Ur Ttl Prot Creatinine Ratio 0.04 mg/mg (0-0.20)
[2024-05-02 15:28] LABS: Parathyroid Intact 51.8 pg/mL (14.5-75.2)
[2024-05-02 15:34] LABS: Vitamin D 25 Hydroxy 69.5 ng/mL
== END 2024-05-02 12:54 | disposition home or self-care (01) ==
LOC: ANHLAB 12:58
PROVIDERS: PCP Internal Medicine; Visit Provider Internal Medicine Nephrology
DX: I12.9 Hypertensive chronic kidney disease with stage 1 through stage 4 chronic kidney disease, or unspecified chronic kidney disease (principal); N18.32 Chronic kidney disease, stage 3b; E55.9 Vitamin D deficiency, unspecified; N25.81 Secondary hyperparathyroidism of renal origin
CPT/HCPCS: 36415; 80069; 82306; 82570; 83970; 84156

== ENCOUNTER 2024-06-06 14:20 | Outpatient (CLI) | payer MEDICARE, SELFPAY ==
[2024-06-06 15:22] LABS: Basophils Percent Auto 0.5 % (0.2-1.2); Eosinophils Absolute Auto 0.2 K/mm3 (0-0.3); Eosinophils Percent Auto 2.2 % (0-4.4); Hematocrit 48.3 % (42.0-52.0); Hemoglobin 15.6 g/dL (14.0-18.0); Immature Granulocyte Absolute 0.02 K/mm3 (0.00-0.031); Immature Granulocyte Percent A 0.2 % (0-0.5); Lymphocytes Absolute Auto 1.02 K/mm3 (0.9-3.2); Lymphocytes Percent Auto 12.2 % (18.3-44.2); Mean Corpuscular HGB Conc 32.3 g/dl (32-36); Mean Corpuscular Hemoglobin 31.3 pg (26-34); Mean Platelet Volume 11.1 fl (7.4-10.4); Monocytes Absolute Auto 0.7 K/mm3 (0.1-0.6); Monocytes Percent Auto 8.1 % (2.6-8.5); Neutrophils Absolute Auto 6.4 K/mm3 (1.3-6.7); Neutrophils Percent Auto 76.8 % (45.5-73.1); Platelet Count Result 202 k/mm3 (150-375); Red Blood Count 4.98 M/mm3 (4.6-6.20); Red Cell Distribution Width 15.2 % (11.5-14.5); White Blood Count 8.4 K/mm3 (4.5-10.0)
[2024-06-06 15:32] LABS: Alanine Aminotransferase 25 U/L (6-50); Albumin Level 4.3 g/dL (3.5-5.1); Alkaline Phosphatase 57 U/L (38-126); Anion Gap 8 mmol/L (4-12); Aspartate Amino Transferase 31 U/L (17-59); Bilirubin,Total 0.6 mg/dL (0.2-1.3); Blood Urea Nitrogen 18 mg/dL (9-20); Calcium 9.3 mg/dL (8.4-10.2); Carbon Dioxide 27 mmol/L (22-30); Chloride 104 mmol/L (98-107); Cholesterol 156 mg/dL (0-200); Estimated Glomerular Filt Rate 44; Glucose 80 mg/dL (65-110); HDL Direct 34 mg/dL; Potassium 3.6 mmol/L (3.4-5.0); Sodium 139 mmol/L (137-145); Triglycerides 136 mg/dL (<150)
[2024-06-06 15:37] LABS: Hemoglobin A1C 5.6 % (<5.7)
[2024-06-06 15:43] LABS: LDL Cholesterol Direct 92 mg/dL
[2024-06-06 16:14] LABS: Vitamin D 25 Hydroxy 76.1 ng/mL
[2024-06-11 22:03] LABS: Testosterone Total 254 ng/dL (250-1100)
== END 2024-06-06 14:21 | disposition home or self-care (01) ==
LOC: ANHLAB 14:24
PROVIDERS: PCP Internal Medicine; Visit Provider Internal Medicine
DX: E78.2 Mixed hyperlipidemia (principal); I10 Essential (primary) hypertension; R73.02 Impaired glucose tolerance (oral); E55.9 Vitamin D deficiency, unspecified
CPT/HCPCS: 36415; 80053; 80061; 82306; 83036; 84403; 85025

== ENCOUNTER 2024-06-08 14:36 | Outpatient (CLI) | payer MEDICARE, SELFPAY ==
[2024-06-08 15:41] LABS: Prostate Specific Antigen 3.2 ng/mL (< OR = 4.0)
== END 2024-06-08 14:37 | disposition home or self-care (01) ==
PROVIDERS: PCP Internal Medicine; Visit Provider Internal Medicine
DX: Z12.5 Encounter for screening for malignant neoplasm of prostate (principal); Z12.9 Encounter for screening for malignant neoplasm, site unspecified; Z79.899 Other long term (current) drug therapy
CPT/HCPCS: 36415; 84153; G0103

== ENCOUNTER 2024-07-26 15:00 | Outpatient (CLI) | payer MEDICARE, SELFPAY ==
--- NOTE | ~2024-07-26 | XR_ITS ---
XR ankle LT min 3V Ordering provider: Cordell House MD History: . M79.671 - Pain in right foot . Comparison: None. FINDINGS: BONES: No acute fracture or dislocation. Calcaneal spur. Ossification of the insertion of the tendo A chilles. Bony fragment seen near to the medial malleolus is most likely an old fracture or nonunited apophysis. JOINT SPACES: The ankle mortise is normal. SOFT TISSUES: Normal. IMPRESSION: No acute osseous abnormality left ankle. Reviewed, dictated and finalized at location A. OS EXECUTIVE PRODUCER
--- NOTE | ~2024-07-26 | XR_ITS ---
EXAMINATION: XR foot RT min 3V DATE: 07/26/2024 16:01 INDICATION: Right foot pain. TECHNIQUE: 3 views of right foot were obtained. COMPARISON: None. FINDINGS: Alignment is normal. No fracture. There is mild osteoarthritis of some of the interphalange al joints. There are enthesophytes at the posterior and plantar aspects of calcaneal tuberosity. IMPRESSION: 1. Mild polyarticular osteoarthritis. Reviewed, dictated and finalized at location A. ER VERIFIER PACKER CUSTOMS
--- NOTE | ~2024-07-26 | XR_ITS ---
EXAMINATION: XR ankle RT min 3V DATE: 07/26/2024 16:01 INDICATION: Right foot pain. TECHNIQUE: 4 views of right ankle were obtained. COMPARISON: None. FINDINGS: Alignment is normal. No fracture. There is mild osteoarthritis of the ankle joint and fifth tarsometatarsal joint. There are enthesophytes at the posterior and plantar aspects of calcaneal tub erosity. IMPRESSION: 1. Mild polyarticular osteoarthritis. Reviewed, dictated and finalized at location A. TS INFORMATION DIRECTOR
--- NOTE | ~2024-07-26 | XR_ITS ---
XR foot LT min 3V Ordering provider: Cordell House MD History: . M79.671 - Pain in right foot . Comparison: None. FINDINGS: The BONES: No acute fracture or dislocation. Calcaneal spur. Ossification of the insertion of the JOINT SPACES: Normal. No tarsal coalition. SOFT TISSUES: Soft tissue swelling seen on the lateral view over the metatarsophalangeal joints which may indicate cellulitis. Clinical correlation advised. IMPRESSION: No acute osseous abnormality left foot. Possible cellulitis in the area of the metatarsophalangeal joints. Reviewed, dictated and finalized at location A. TH INFORMATION INTERNSHIP
[2024-07-26 15:39] LABS: Basophils Percent Auto 0.5 % (0.2-1.2); Eosinophils Absolute Auto 0.2 K/mm3 (0-0.3); Eosinophils Percent Auto 2.3 % (0-4.4); Hematocrit 51.9 % (42.0-52.0); Hemoglobin 17.1 g/dL (14.0-18.0); Immature Granulocyte Absolute 0.02 K/mm3 (0.00-0.031); Immature Granulocyte Percent A 0.3 % (0-0.5); Lymphocytes Absolute Auto 1.05 K/mm3 (0.9-3.2); Lymphocytes Percent Auto 13.4 % (18.3-44.2); Mean Corpuscular HGB Conc 32.9 g/dl (32-36); Mean Corpuscular Hemoglobin 31.8 pg (26-34); Mean Corpuscular Volume 96.5 fl (80-100); Mean Platelet Volume 10.5 fl (7.4-10.4); Monocytes Absolute Auto 0.8 K/mm3 (0.1-0.6); Monocytes Percent Auto 9.7 % (2.6-8.5); Neutrophils Absolute Auto 5.8 K/mm3 (1.3-6.7); Neutrophils Percent Auto 73.8 % (45.5-73.1); Platelet Count Result 189 k/mm3 (150-375); Red Blood Count 5.38 M/mm3 (4.6-6.20); Red Cell Distribution Width 15.3 % (11.5-14.5); White Blood Count 7.8 K/mm3 (4.5-10.0)
[2024-07-26 15:52] LABS: CRP 1.4 mg/dL (<1.0)
[2024-07-26 16:09] LABS: Erythrocyte Sedimentation Rate 3 mm/hr (0-20)
== END 2024-07-26 15:01 | disposition home or self-care (01) ==
LOC: ANHLAB 15:01
PROVIDERS: PCP Internal Medicine; Visit Provider Internal Medicine
DX: M79.672 Pain in left foot (principal); M79.89 Other specified soft tissue disorders; M19.071 Primary osteoarthritis, right ankle and foot
CPT/HCPCS: 36415; 73610; 73630; 84550; 85025; 85652; 86140

== ENCOUNTER 2024-09-04 16:36 | Outpatient (CLI) | payer MEDICARE, SELFPAY ==
[2024-09-04 17:18] LABS: Albumin Level 4.2 g/dL (3.5-5.1); Anion Gap 2 mmol/L (4-12); Blood Urea Nitrogen 22 mg/dL (9-20); Calcium 9.6 mg/dL (8.4-10.2); Carbon Dioxide 31 mmol/L (22-30); Chloride 105 mmol/L (98-107); Estimated Glomerular Filt Rate 47; Glucose 108 mg/dL (65-110); Phosphorus 3.6 mg/dL (2.5-4.5); Potassium 4.4 mmol/L (3.4-5.0); Sodium 138 mmol/L (137-145)
[2024-09-04 17:51] LABS: Creatinine Urine 236.2 mg/dL; Total Protein Urine Random 10 mg/dL; Ur Ttl Prot Creatinine Ratio 0.04 mg/mg (0-0.20)
== END 2024-09-04 16:37 | disposition home or self-care (01) ==
LOC: ANHLAB 16:38
PROVIDERS: PCP Internal Medicine; Visit Provider Internal Medicine Nephrology
DX: I12.9 Hypertensive chronic kidney disease with stage 1 through stage 4 chronic kidney disease, or unspecified chronic kidney disease (principal); N18.31 Chronic kidney disease, stage 3a
CPT/HCPCS: 36415; 80069; 82570; 84156

== ENCOUNTER 2024-10-23 16:58 | Outpatient (CLI) | payer MEDICARE, SELFPAY ==
[2024-10-23 17:22] LABS: Alanine Aminotransferase 44 U/L (6-50); Albumin Level 4.2 g/dL (3.5-5.1); Alkaline Phosphatase 72 U/L (38-126); Anion Gap 12 mmol/L (4-12); Aspartate Amino Transferase 30 U/L (17-59); Bilirubin,Total 0.8 mg/dL (0.2-1.3); Blood Urea Nitrogen 23 mg/dL (9-20); Calcium 9.9 mg/dL (8.4-10.2); Carbon Dioxide 26 mmol/L (22-30); Chloride 102 mmol/L (98-107); Cholesterol 182 mg/dL (0-200); Estimated Glomerular Filt Rate 42; Glucose 109 mg/dL (65-110); HDL Direct 32 mg/dL; Potassium 4.6 mmol/L (3.4-5.0); Sodium 140 mmol/L (137-145); Triglycerides 92 mg/dL (<150)
[2024-10-23 17:33] LABS: LDL Cholesterol Direct 113 mg/dL
[2024-10-23 18:48] LABS: Free T4 Free Thyroxine 1.24 ng/dL (0.78-2.19)
== END 2024-10-23 16:59 | disposition home or self-care (01) ==
LOC: ANHLAB 17:01
PROVIDERS: PCP Internal Medicine; Visit Provider Internal Medicine
DX: E34.9 Endocrine disorder, unspecified (principal); Z79.899 Other long term (current) drug therapy; Z13.29 Encounter for screening for other suspected endocrine disorder; E78.2 Mixed hyperlipidemia; R73.02 Impaired glucose tolerance (oral); I12.9 Hypertensive chronic kidney disease with stage 1 through stage 4 chronic kidney disease, or unspecified chronic kidney disease; N18.9 Chronic kidney disease, unspecified
CPT/HCPCS: 36415; 80053; 80061; 83036; 84403; 84439; 84443

== ENCOUNTER 2024-11-01 11:45 | Outpatient (CLI) | payer MEDICARE, SELFPAY ==
[2024-11-01 12:12] LABS: Add Urine Microscopic? YES; Appearance Urine Cloudy (Clear); Bacteria Urine 1+ /hpf; Bilirubin Urine Negative (Negative); Blood Urine Trace (Negative); Color Urine Dark Yellow (Yellow); Glucose Urine UA Negative (Negative); Ketones Urine Negative (Negative); Leukocyte Esterase Ur 3+ LEU/UL (Negative); Nitrate Urine Negative (Negative); Protein Urine 2+ mg/dL (Negative); RBC Urine 51-100 /hpf (0-2); Specific Grav Ur 1.017 (1.001-1.035); Squamous Epithelial Cell Urine None Seen /hpf (Few); Urobilinogen Urine 0.2 mg/dL (<2.0); WBC Urine >100 /hpf (0-3)
--- OUTSIDE RECORDS SUMMARY | 2024-11-01 13:36 | XMS_ITS | Referral Summary ---
Author Organization [facility] [address] Address [address] [place] [address] Care Team Providers Care Hopper Filler Name Role Phone Cordell House MD Primary Care Provider [phone] Allergies Active Allergy Reactions Criticality Noted Date Comments Latex Other (See comments) Low 11/03/2018 Skin peeling, eczema Medications famotidine (PEPCID) 40 mg tablet Take 40 mg by mouth 2 (two) times a day. 09/01/2018 Active ferrous sulfate 325 mg (65 mg of elemental iron) tabletIndication s:Iron Deficiency Anemia Take 1 tablet by mouth 2 (two) times a day. 5 10/06/2018 Active valsartan (DIOVAN) 320 mg tablet Take 160 mg by mouth daily. 09/01/2018 Active PRADAXA 150 mg capsule Take 150 mg by mouth 2 (two) times a day. 11/01/2018 Active POTASSIUM CHLORIDE ER 20 mEq CR tablet Take 20 mEq by mouth Take 3 in the am and 2 in the pm 10/14/2018 Active BYSTOLIC 5 mg tablet Take 10 mg by mouth daily. 10/14/2018 Active hydrALAZINE (APRESOLINE) 100 mg tabletIndication s:hypertension Take 100 mg by mouth 3 (three) times a day. 10/14/2018 Active fluticasone-luma nterol (BREO ELLIPTA) 200-25 mcg/dose diskus inhaler Inhale 1 puff daily. Rinse mouth with water after use. Do not swallow. Active furosemide (LASIX) 40 mg tablet Take 40 mg by mouth 2 (two) times a day. Active Active Problems Problem Noted Date Diagnosed Date Atrial fibrillation (CMS/[facility]) 11/03/2018 Biatrial enlargement 11/03/2018 Chronic diastolic congestive heart failure (CMS/ [facility]) 11/03/2018 Chronic anticoagulation 11/03/2018 Renal mass 11/03/2018 Essential hypertension 11/03/2018 Obstructive sleep apnea 11/03/2018 Cerebrovascular accident (CVA) 11/03/2018 Cardiomyopathy 11/03/2018 Social History Tobacco Use Types Packs/Day Years Used Date Smoking Tobacco: Never Smokeless Tobacco: Never Alcohol Use Standard Drinks/Week Comments No 0 (1 standard drink = 0.6 oz pur e alcohol) Sex and Gender Information Value Date Recorded Sex Assigned at Not on file Legal 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 Gender Identity Not on file Sexual Orientation Not on file Last Filed Vital Signs Vital Sign Reading Time Taken Comments Blood Pressure 136/80 03/28/2019 4:01 PM CDT Pulse 59 03/28/2019 4:01 PM CDT Temperature - - Respiratory Rate - - Oxygen Saturation 98% 03/28/2019 4:01 PM CDT Inhaled Oxygen Concentration - - Weight 122.5 kg (270 lb) 03/28/2019 4:01 PM CDT Height 175.3 cm (5' 9 ) 03/28/2019 4:01 PM CDT Body Mass Index 39.87 03/28/2019 4:01 PM CDT Plan of Treatment Not on file Care Teams Hopper Filler Relationship Specialty Start Date End Date Cordell House MD [address] [facility] [address] [place] [address] PCP - General 05/05/13
--- OUTSIDE RECORDS SUMMARY | 2024-11-01 13:36 | XMS_ITS | Clinical Summary ---
Author Organization [facility] [place] [address] Address [address] [place] [address] Care Team Providers Care Celery Cutter Name Role Phone Cordell House MD Primary Care Provider Allergies Active Allergy Reactions Criticality Noted Date [...] Problem Noted Date Diagnosed Date Atrial fibrillation (CMS/HCC) 11/03/2018 Biatrial enlargement 11/03/2018 Chronic diastolic congestive heart failure (CMS/ HCC) 11/03/2018 Chronic anticoagulation 11/03/2018 Renal mass 11/03/2018 Essential hypertension 11/03/2018 Obstructive sleep apnea 11/03/2018 Cerebrovascular accident (CVA) 11/03/2018 Cardiomyopathy 11/03/2018 Surgical History Surgery Date Site/Laterality Comments OTHER SURGICAL HISTORY Arthroscopy - bilat OTHER SURGICAL HISTORY Amputation L. 1st finger KNEE SURGERY Medical History Medical History Date Comments Gastroesophageal reflux disease GERD Hx Other Medical DJD - knees Calculus of kidney Kidney Stones Hypertension Arrhythmia Acid indigestion Anemia Stroke (HCC) Sleep apnea Arthritis Gout Cholelithiasis Family History Medical History Relation Name Comments Cancer Father Esophageal cancer Father Hypertension Father Hypertension; COPD Mother Hypertension Mother Stroke Mother's Sister Relation Name Status Comments Brother Alive Father (Age 78) Mother Alive Mother's Sister Alive Social History Tobacco Use Types Packs/Day Years Used Date Smoking Tobacco: Never Smokeless Tobacco: Never Alcohol Use Standard Drinks/Week Comments No 0 (1 standard drink = 0.6 oz pur e alcohol) Sex and Gender Information Value Date Recorded Sex Assigned at Not on file 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
== END 2024-11-01 11:46 | disposition home or self-care (01) ==
LOC: ANHLAB 11:47
PROVIDERS: PCP Internal Medicine; Visit Provider Internal Medicine
DX: R30.0 Dysuria (principal)
CPT/HCPCS: 81001; 87086; 87186

== ENCOUNTER 2024-11-14 13:44 | Outpatient (CLI) | payer MEDICARE, SELFPAY ==
--- OUTSIDE RECORDS SUMMARY | 2024-11-14 15:25 | XMS_ITS | Clinical Summary ---
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
--- OUTSIDE RECORDS SUMMARY | 2024-11-14 15:25 | XMS_ITS | Referral Summary ---
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
[2024-11-14 15:33] LABS: Toxigenic C. Diff POSITIVE (NEGATIVE)
== END 2024-11-14 13:45 | disposition home or self-care (01) ==
LOC: ANHLAB 13:44
PROVIDERS: PCP Internal Medicine; Visit Provider Internal Medicine
DX: K92.1 Melena (principal); R19.7 Diarrhea, unspecified
CPT/HCPCS: 87493

== ENCOUNTER 2024-11-16 15:05 | Outpatient (CLI) | payer MEDICARE, SELFPAY ==
[2024-11-16 16:03] LABS: Add Urine Microscopic? YES; Appearance Urine Clear (Clear); Bilirubin Urine Negative (Negative); Blood Urine Negative (Negative); Color Urine Dark Yellow (Yellow); Glucose Urine UA Negative (Negative); Ketones Urine Trace mg/dL (Negative); Leukocyte Esterase Ur 1+ LEU/UL (Negative); Nitrate Urine Negative (Negative); Protein Urine 1+ mg/dL (Negative); Specific Grav Ur 1.027 (1.001-1.035); pH Urine 5.5 (5.0-9.0)
[2024-11-16 16:11] LABS: RBC Urine 0-2 /hpf (0-2); Squamous Epithelial Cell Urine None Seen /hpf (Few)
[2024-11-16 16:12] LABS: Bacteria Urine Trace /hpf
--- OUTSIDE RECORDS SUMMARY | 2024-11-16 17:01 | XMS_ITS | Referral Summary ---
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
--- OUTSIDE RECORDS SUMMARY | 2024-11-16 17:01 | XMS_ITS | Clinical Summary ---
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
== END 2024-11-16 15:06 | disposition home or self-care (01) ==
PROVIDERS: PCP Internal Medicine; Visit Provider Internal Medicine
DX: N39.0 Urinary tract infection, site not specified (principal)
CPT/HCPCS: 81001; 87086

== ENCOUNTER 2024-11-17 11:11 | Emergency (ER) | payer MEDICARE, SELFPAY ==
--- NOTE | ~2024-11-17 | CT_ITS ---
CT abdomen pelvis w con Ordering provider: Ronak Young MD History: 64 years Male with . colitis . Comparison: January 06, 2020 Technique: CT abdomen and pelvis with IV and without oral contrast. Automated exposure control and it erative reconstruction technique were employed. The dose-length product was 1439.62 mGy-cm. Findings: VISUALIZED LOWER CHEST: Dependent atelectatic changes. UPPER ABDOMINAL ORGANS: Liver: Multiple small hypodensities most likely small cysts unchanged from previous examination. Hepa tomegaly. Gallbladder: Status post cholecystectomy. Spleen: Normal. Stomach/duodenum: Small sliding hiatus hernia. Pancreas: Normal. Adrenals: Normal. Kidneys: Tiny stone in the right kidney lower pole. Bilateral renal cysts. The cysts seen previously in the right kidney upper pole is not demonstrated at this time with soft tissue density seen in the area. Follow-up advised. PELVIC ORGANS: The bladder is normal. Slightly enlarged prostate. BOWEL AND MESENTERY: Colon: No evidence of diverticulitis. Slight thickening of the wall in the sigmoid colon which may in dicate colitis. Follow-up advised. Appendix is not demonstrated. Small Bowel: Normal. No obstruction. Peritoneum/mesentery: No free air or free fluid. No mesenteric lymphadenopathy. Small mesenteric lymp h nodes. RETROPERITONEUM: Mild atheromatous disease of the abdominal aorta. No retroperitoneal lymphadenopat hy. Small para-aortic lymph nodes are noted. The largest measures 1.3 cm. MUSCULOSKELETAL: Superficial soft tissues: Bilateral inguinal fat containing hernia is larger on the left. Otherwise T he superficial soft tissues are normal. Bones: Age appropriate degenerative changes of the spine. Bilateral sacroiliitis. IMPRESSION: 1. Possible focal colitis in the sigmoid colon. 2. Hepatomegaly with multiple small cysts. 3. Small sliding hiatus hernia. 4. Bilateral renal cysts with. 5. tiny stone in the right kidney lower pole. 6. Small para-aortic and mesenteric lymph nodes. 7. Soft tissue density in the right kidney upper pole most likely residual from the previously seen cyst. Follow-up advised. Reviewed, dictated and finalized at location A. IMPRESSION: 1. Possible focal colitis in the sigmoid colon. 2. Hepatomegaly with multiple small cysts. 3. Small sliding hiatus hernia. 4. Bilateral renal cysts with. 5. tiny stone in the right kidney lower pole. 6. Small para-aortic and mesenteric lymph nodes. 7. Soft tissue density in the right kidney upper pole most likely residual fro m the previously seen cyst. Follow-up advised.
[2024-11-17 11:19] VITALS: BP 147/94; PULSE 74; RESP 18; TEMP 36.5; O2SAT 98
--- OUTSIDE RECORDS SUMMARY | 2024-11-17 12:06 | XMS_ITS | Referral Summary ---
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
--- OUTSIDE RECORDS SUMMARY | 2024-11-17 12:06 | XMS_ITS | Clinical Summary ---
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
--- NOTE | 2024-11-17 14:35 | ED.NAVMDI ---
HPI - Nausea/Vomiting/Diarrhea General Chief complaint: Nausea/Vomiting/Diarrhea <Sharifa Solis PA-C - Last Filed: 11/17/24 18:16> Stated complaint: diarrhea x8-9 days, on meds for c-diff <Sharifa Solis PA-C - Last Filed: 11/17/24 18:16> Time Seen by Provider: 11/17/24 14:35 <Sharifa Solis PA-C - Last Filed: 11/17/24 18:16> Focused HPI: This is a 64 year old male that presents to the ER for diarrhea. Reports he was being treated for a UTI which has cleared after antibiotic. Reports after taking the antibiotic he started to have blood in his stool, diarrhea. Reports he has continued to have diarrhea for about 9 days now. Reports he was started on an antibiotic for c. diff. Reports he is not having any improvement. GENERAL: Well-appearing, well-nourished, and in no acute distress. HEAD: Normocephalic, atraumatic. CHEST: Clear to auscultation. ?No respiratory distress. HEART: Regular rate and rhythm.? NEURO: ?Alert and oriented x3. Patient screened in triage and initial orders placed.? ?Additional care and disposition to be based upon?diagnostic testing and treatment. <Sharifa Solis PA-C - Last Filed: 11/17/24 18:16> Source: patient and family <Ronak Young MD - Last Filed: 11/17/24 17:14> Mode of arrival: ambulatory <Ronak Young MD - Last Filed: 11/17/24 17:14> Limitations: no limitations <Ronak Young MD - Last Filed: 11/17/24 17:14> History of Present Illness HPI Narrative: 64-year-old with a history of hypertension, hyperlipidemia, atrial fibrillation on Xarelto, CVA she the history of repeated urinary tract infection recent diagnosis of C diff presently on Flagyl here with the complaints of intermittent abdominal pain associated with multiple episodes of watery stools with some blood. Denies any fever or chills. Patient states that he started Flagyl yesterday. <Ronak Young MD - Last Filed: 11/17/24 17:14> MD elicited complaint: diarrhea and abdominal pain <Ronak Young MD - Last Filed: 11/17/24 17:14> Onset (ago): week(s) (1) <Ronak Young MD - Last Filed: 11/17/24 17:14> Description of diarrhea: blood and watery <Ronak Young MD - Last Filed: 11/17/24 17:14> Associated nausea: No <Ronak Young MD - Last Filed: 11/17/24 17:14> Associated abdominal pain: No <Ronak Young MD - Last Filed: 11/17/24 17:14> Location of pain: diffuse <Ronak Young MD - Last Filed: 11/17/24 17:14> Quality: cramping <Ronak Young MD - Last Filed: 11/17/24 17:14> Relieving factors: none <Ronak Young MD - Last Filed: 11/17/24 17:14> Associated symptoms: denies other symptoms <Ronak Young MD - Last Filed: 11/17/24 17:14> Related Data Home medications: Home Medications ?Medication ?Instructions ?Recorded ?Confirmed ?Last Taken ?Type spironolactone 25 mg tablet See Rx Instructions .Route .COMPLEX 07/10/24 10/30/24 Unknown History <Sharifa Solis PA-C - Last Filed: 11/17/24 18:16> Allergies/Adverse reactions: Allergies Allergy/AdvReac Type Severity Reaction Status Date / Time latex Allergy Unknown Unknown Verified 11/17/24 11:14 adhesive AdvReac Mild Other Verified 11/17/24 11:14 <Sharifa Solis PA-C - Last Filed: 11/17/24 18:16> Review of Systems Review of Systems: All systems reviewed & are unremarkable except as noted in HPI and below <Ronak Young MD - Last Filed: 11/17/24 17:14> Constitutional: Constitutional: Reports no additional constitutional complaints <Ronak Young MD - Last Filed: 11/17/24 17:14> Eyes: Eyes: Reports no additional eye complaints <Ronak Young MD - Last Filed: 11/17/24 17:14> ENT: Reports system reviewed and no additional complaints, except as documented <Ronak Young MD - Last Filed: 11/17/24 17:14> Cardiovascular: Cardiovascular: Reports no additional cardiovascular complaints <Ronak Young MD - Last Filed: 11/17/24 17:14> Respiratory: Respiratory: Reports no additional respiratory complaints <Ronak Young MD - Last Filed: 11/17/24 17:14> Gastrointestinal: Gastrointestinal: Reports as per HPI <Ronak Young MD - Last Filed: 11/17/24 17:14> Genitourinary: Genitourinary: Reports no additional male genitourinary complaints <Ronak Young MD - Last Filed: 11/17/24 17:14> Musculoskeletal: Musculoskeletal: Reports no additional musculoskeletal complaints <Ronak Young MD - Last Filed: 11/17/24 17:14> Neurologic: Reports system reviewed and no additional complaints, except as documented <Ronak Young MD - Last Filed: 11/17/24 17:14> Psychiatric: Psychiatric: Reports no additional psychiatric complaints <Ronak Young MD - Last Filed: 11/17/24 17:14> Endocrine: Endocrine: Reports no additional endocrine complaints <Ronak Young MD - Last Filed: 11/17/24 17:14> [facility] Past Medical History Medical History: Medical History (Updated 11/17/24 @ 17:12 by Ronak Young MD) Early cataracts, bilateral Visual floaters Abnormal PSA acceleration with normal PSA Chronic cellulitis BMI 38.0-38.9,adult Follow up Hematuria, gross Scrotal abscess Right foot pain Right ankle pain Primary osteoarthritis of right knee Essential (primary) hypertension UTI (urinary tract infection) HERI on CPAP Encounter for Medicare annual wellness exam Renal cyst Chronic low back pain Chronic pain Hyperlipidemia Vision changes DJD (degenerative joint disease) CKD (chronic kidney disease) Encounter for preventive health examination Lymphedema Encounter for special screening examination for neoplasm of prostate Mild reactive airways disease BMI 39.0-39.9,adult On termite inspector drug therapy Encounter for surgical aftercare following surgery on the digestive system Umbilical hernia (Unknown) Chronic diastolic heart failure (Unknown) Obstructive sleep apnea treated with continuous positive airway pressure (CPAP) (Unknown) Vitamin D deficiency Hx of colonic polyps (Unknown) History of CVA (cerebrovascular accident) August of 2018 History of kidney stones Body mass index (BMI) 40.0-44.9, adult (Unknown) History of reduction of nasal fracture Abscess Perineal abscess status post I&D in August of 2018 Hypogonadism in male Hearing loss Elevated homocysteine Other iron deficiency anemias A-fib (Unknown) Chronic atrial fibrillation Conn's syndrome HYPERALDOSTERONISM Hyperlipidemia Benign essential hypertension <Sharifa Solis PA-C - Last Filed: 11/17/24 18:16> Surgical History Surgical History: Surgical History S/P cholecystectomy Hx laparoscopic cholecystectomy Hx of colonoscopy History of knee surgery bilateral History of hernia repair Open right inguinal hernia repair with mesh estimated in 2004 <Sharifa Solis PA-C - Last Filed: 11/17/24 18:16> Family History Family History: Family History Father Family history of obesity Hypertension Esophageal cancer Mother Family history of malignant neoplasm of breast in first degree relative <ELSY Alexander Last Filed: 11/17/24 18:16> Social History Social History: Social History Smoking status: Never smoker Alcohol intake: current Alcohol use details: Occasional alcohol, rare in recent years Substance use: never Substance use type: does not use Do You Feel Safe in your Home?: Yes Lack of Transportation: No Lack of Food: Never True Current Housing: I Have Housing Concerned About Future Housing: No Difficulty Paying Gas/Electric Bills: No Difficulty Paying for Meds: No Currently Unemployed: No Education: High School Diploma/GED Difficulty w/ Childcare or Family Care: No Living arrangements: with family Additional living arrangements comments: Lives with his . Occupation/Education: other Additional occupation/education comments: Currently on disability after his stroke in August of 2018. Previously worked at [employer]. Gender identity (if verbalized by the patient): Male Spiritual care concerns: No Agree to blood products: Yes <Sharifa Solis PA-C - Last Filed: 11/17/24 18:16> Exam Narrative: GENERAL: Well-appearing, well-nourished, and in no acute distress. HEAD: Normocephalic, atraumatic. EYES: PERRLA and EOMI. ENT: Nares clear, no rhinorrhea or epistaxis. Mucous membranes moist. NECK: Supple. CHEST: Clear to auscultation. No respiratory distress. HEART: Regular rate and rhythm. No murmur heard. Normal peripheral pulses. ABDOMEN: Soft, nontender, nondistended, normal active bowel sounds. EXTREMITIES: Normal range of motion. No edema. SKIN: Warm, dry, no rash. NEURO: No focal deficits. Alert and oriented x3. PSYCH: Normal mood and affect. <Ronak Young MD - Last Filed: 11/17/24 17:14> Course Course Emergency Course: Notified patient and family about his lab work, CT findings. Discussed with Dr. House patient can be discharged home on vancomycin. pt is quite happy that he is going home , advised him to stop Xerolto for 2 days <Ronak Young MD - Last Filed: 11/17/24 17:14> Vital Signs Vital signs: Vital Signs Temperature 97.7 F 11/17/24 11:19 Pulse Rate 74 11/17/24 11:19 Respiratory Rate 18 11/17/24 11:19 Blood Pressure 147/94 H 11/17/24 11:19 Pulse Oximetry 98 11/17/24 11:19 Oxygen Delivery Room Air 11/17/24 11:19 Temperature 97.9 F 11/17/24 17:55 Pulse Rate 80 11/17/24 17:55 Respiratory Rate 16 11/17/24 17:55 Blood Pressure 124/80 11/17/24 17:55 Pulse Oximetry 100 11/17/24 17:55 Oxygen Delivery Room Air 11/17/24 11:19 <Sharifa Solis PA-C - Last Filed: 11/17/24 18:16> Vital Signs Temperature 97.7 F 11/17/24 11:19 Pulse Rate 74 11/17/24 11:19 Respiratory Rate 18 11/17/24 11:19 Blood Pressure 147/94 H 11/17/24 11:19 Pulse Oximetry 98 11/17/24 11:19 Oxygen Delivery Room Air 11/17/24 11:19 Temperature 97.9 F 11/17/24 17:55 Pulse Rate 80 11/17/24 17:55 Respiratory Rate 16 11/17/24 17:55 Blood Pressure 124/80 11/17/24 17:55 Pulse Oximetry 100 11/17/24 17:55 Oxygen Delivery Room Air 11/17/24 11:19 <Ronak Young MD - Last Filed: 11/17/24 17:14> MDM - Nausea/Vomiting/Diarrhea Lab Data Result diagrams: 11/17/24 15:36 11/17/24 15:36 <Sharifa Solis PA-C - Last Filed: 11/17/24 18:16> Labs: Lab Results 11/17/24 Range/Units 15:36 WBC 8.2 (4.5-10.0) K/mm3 RBC 5.24 (4.6-6.20) M/mm3 Hgb 16.2 (14.0-18.0) g/dL Hct 50.5 (42.0-52.0) % MCV 96.4 (80-100) fl MCH 30.9 (26-34) pg MCHC 32.1 (32-36) g/dl RDW 15.8 H (11.5-14.5) % Plt Count 206 (150-375) k/mm3 MPV 11.1 H (7.4-10.4) fl Immature Gran % (Auto) 0.4 (0-0.5) % Neut % (Auto) 69.8 (45.5-73.1) % Lymph % (Auto) 16.4 L (18.3-44.2) % [place] % (Auto) 10.2 H (2.6-8.5) % Eos % (Auto) 2.7 (0-4.4) % Baso % (Auto) 0.5 (0.2-1.2) % Lymph # (Auto) 1.34 (0.9-3.2) K/mm3 [place] # (Auto) 0.8 H (0.1-0.6) K/mm3 Eos # (Auto) 0.2 (0-0.3) K/mm3 Baso # (Auto) 0.0 (0.0-0.1) K/mm3 Abs Immat Gran (auto) 0.03 (0.00-0.031) K/mm3 Absolute Neuts (auto) 5.7 (1.3-6.7) K/mm3 Absolute Nucleated RBC 0.000 (0.0-0.012) K/mm3 Nucleated RBC % 0.0 (0.0-0.2) % Sodium 138 (137-145) mmol/L Potassium 4.3 (3.4-5.0) mmol/L Chloride 102 (98-107) mmol/L Carbon Dioxide 26 (22-30) mmol/L Anion Gap 10 (4-12) mmol/L BUN 17 (9-20) mg/dL Creatinine 1.55 H (0.7-1.3) mg/dL Estim Creat Clear Calc 54 ml/min Estimated GFR 45 L (59 - ) Glucose 100 (65-110) mg/dL Calcium 9.2 (8.4-10.2) mg/dL Total Bilirubin 0.6 (0.2-1.3) mg/dL AST 35 (17-59) U/L ALT 35 (6-50) U/L Alkaline Phosphatase 72 (38-126) U/L Total Protein 8.0 (6.3-8.2) g/dL Albumin 4.4 (3.5-5.1) g/dL Lipase 185 (23-300) U/L <Sharifa Solis PA-C - Last Filed: 11/17/24 18:16> Lab Results 11/17/24 Range/Units 15:36 WBC 8.2 (4.5-10.0) K/mm3 RBC 5.24 (4.6-6.20) M/mm3 Hgb 16.2 (14.0-18.0) g/dL Hct 50.5 (42.0-52.0) % MCV 96.4 (80-100) fl MCH 30.9 (26-34) pg MCHC 32.1 (32-36) g/dl RDW 15.8 H (11.5-14.5) % Plt Count 206 (150-375) k/mm3 MPV 11.1 H (7.4-10.4) fl Immature Gran % (Auto) 0.4 (0-0.5) % Neut % (Auto) 69.8 (45.5-73.1) % Lymph % (Auto) 16.4 L (18.3-44.2) % [place] % (Auto) 10.2 H (2.6-8.5) % Eos % (Auto) 2.7 (0-4.4) % Baso % (Auto) 0.5 (0.2-1.2) % Lymph # (Auto) 1.34 (0.9-3.2) K/mm3 [place] # (Auto) 0.8 H (0.1-0.6) K/mm3 Eos # (Auto) 0.2 (0-0.3) K/mm3 Baso # (Auto) 0.0 (0.0-0.1) K/mm3 Abs Immat Gran (auto) 0.03 (0.00-0.031) K/mm3 Absolute Neuts (auto) 5.7 (1.3-6.7) K/mm3 Absolute Nucleated RBC 0.000 (0.0-0.012) K/mm3 Nucleated RBC % 0.0 (0.0-0.2) % Sodium 138 (137-145) mmol/L Potassium 4.3 (3.4-5.0) mmol/L Chloride 102 (98-107) mmol/L Carbon Dioxide 26 (22-30) mmol/L Anion Gap 10 (4-12) mmol/L BUN 17 (9-20) mg/dL Creatinine 1.55 H (0.7-1.3) mg/dL Estim Creat Clear Calc 54 ml/min Estimated GFR 45 L (59 - ) Glucose 100 (65-110) mg/dL Calcium 9.2 (8.4-10.2) mg/dL Total Bilirubin 0.6 (0.2-1.3) mg/dL AST 35 (17-59) U/L ALT 35 (6-50) U/L Alkaline Phosphatase 72 (38-126) U/L Total Protein 8.0 (6.3-8.2) g/dL Albumin 4.4 (3.5-5.1) g/dL Lipase 185 (23-300) U/L <Ronak Young MD - Last Filed: 11/17/24 17:14> Imaging Data Radiologist's impression: ITS Impressions Abdomen/Pelvis CT 11/17/24 16:37 IMPRESSION: 1. Possible focal colitis in the sigmoid colon. 2. Hepatomegaly with multiple small cysts. 3. Small sliding hiatus hernia. 4. Bilateral renal cysts with. 5. tiny stone in the right kidney lower pole. 6. Small para-aortic and mesenteric lymph nodes. 7. Soft tissue density in the right kidney upper pole most likely residual from the previously seen cyst. Follow-up advised. <Sharifa Solis PA-C - Last Filed: 11/17/24 18:16> Critical Care Time Critical Care Time Critical Care Time: No <ELSY Alexander Last Filed: 11/17/24 18:16> Discharge Plan Discharge Clinical Impression: C. difficile colitis <ELSY Alexander Last Filed: 11/17/24 18:16> Patient Disposition: Home, Self-Care <ELSY Alexander Last Filed: 11/17/24 18:16> Condition: Stable <ELSY Alexander Last Filed: 11/17/24 18:16> Instructions: C. Diff (Clostridioides Difficile) Infection (DC) <Sharifa Solis PA-C - Last Filed: 11/17/24 18:16> Patient Language: Burkinan <ELSY Alexander Last Filed: 11/17/24 18:16> Prescriptions: New vancomycin [Vancocin] 250 mg capsule 250 mg PO Q6H 10 Days Qty: 40 0RF No Action doxycycline hyclate 100 mg tablet 100 mg PO BID PRN (Reason: cellulitis) Qty: 20 2RF acetaminophen-codeine 300-30 mg tablet 1 tablet PO Q6H PRN (Reason: pain) Qty: 30 1RF spironolactone 25 mg tablet See Rx Instructions .ROUTE .COMPLEX Dose Instruction: TAKE 1 TABLET BY MOUTH TWICE DAILY Rx Instructions: TAKE 2 TABLET BY MOUTH DAILY albuterol sulfate [Ventolin HFA] 90 mcg/actuation HFA aerosol inhaler 1 puff inhalation Q4H PRN (Reason: shortness of breath or wheezing) Qty: 8.5 0RF Bystolic 10 mg tablet 10 mg PO DAILY Qty: 90 3RF colchicine 0.6 mg tablet 0.6 mg PO TID Qty: 15 0RF furosemide 80 mg tablet 80 mg PO BID Qty: 180 0RF hydralazine 100 mg tablet See Rx Instructions .ROUTE .COMPLEX Qty: 270 3RF Dose Instruction: TAKE 1 TABLET 3 TIMES A DAY Rx Instructions: TAKE 1 TABLET 3 TIMES A DAY penicillin V potassium 500 mg tablet 500 mg PO Q12H Qty: 180 1RF potassium chloride 20 mEq tablet extended release See Rx Instructions .ROUTE .COMPLEX Qty: 270 0RF Dose Instruction: TAKE 5 TABLETS DAILY Rx Instructions: TAKE 3 TABLETS DAILY; Xarelto 20 mg tablet 20 mg PO DAILY Qty: 90 2RF Rx Instructions: must administer with evening meal candesartan 32 mg tablet 32 mg PO DAILY Qty: 90 3RF folic acid 1 mg tablet 1 mg PO DAILY Qty: 90 3RF rosuvastatin 5 mg tablet 5 mg PO DAILY Qty: 90 1RF hydrocodone-acetaminophen 5-325 mg tablet 1 tablet PO TID PRN (Reason: pain) Qty: 35 0RF testosterone 20.25 mg/1.25 gram (1.62 %) gel in metered-dose pump 4 pump topical DAILY Qty: 75 0RF Rx Instructions: apply 4 pumps amount over max area of EACH upper arm and shoulder- QUANTITIY EFFICIENT 90 DAY SUPPLY tramadol 50 mg tablet 50 mg PO Q6H Qty: 60 0RF metronidazole 500 mg tablet 500 mg PO Q8H Qty: 30 0RF <Sharifa Solis PA-C - Last Filed: 11/17/24 18:16> Follow-up/Referrals: Cordell House MD [Primary Care Provider] - <Sharifa Solis PA-C - Last Filed: 11/17/24 18:16> Time of Disposition: 17:13 <Sharifa Solis PA-C - Last Filed: 11/17/24 18:16> 17:13 <Ronak Young MD - Last Filed: 11/17/24 17:14>
[2024-11-17 15:18] VITALS: BP 146/101; PULSE 83; RESP 16; TEMP 36.6; O2SAT 98
[2024-11-17 15:42] LABS: Basophils Percent Auto 0.5 % (0.2-1.2); Eosinophils Absolute Auto 0.2 K/mm3 (0-0.3); Eosinophils Percent Auto 2.7 % (0-4.4); Hematocrit 50.5 % (42.0-52.0); Hemoglobin 16.2 g/dL (14.0-18.0); Immature Granulocyte Absolute 0.03 K/mm3 (0.00-0.031); Immature Granulocyte Percent A 0.4 % (0-0.5); Lymphocytes Absolute Auto 1.34 K/mm3 (0.9-3.2); Lymphocytes Percent Auto 16.4 % (18.3-44.2); Mean Corpuscular HGB Conc 32.1 g/dl (32-36); Mean Corpuscular Hemoglobin 30.9 pg (26-34); Mean Corpuscular Volume 96.4 fl (80-100); Mean Platelet Volume 11.1 fl (7.4-10.4); Monocytes Absolute Auto 0.8 K/mm3 (0.1-0.6); Monocytes Percent Auto 10.2 % (2.6-8.5); Neutrophils Absolute Auto 5.7 K/mm3 (1.3-6.7); Neutrophils Percent Auto 69.8 % (45.5-73.1); Platelet Count Result 206 k/mm3 (150-375); Red Blood Count 5.24 M/mm3 (4.6-6.20); Red Cell Distribution Width 15.8 % (11.5-14.5); White Blood Count 8.2 K/mm3 (4.5-10.0)
[2024-11-17 15:49] LABS: Alanine Aminotransferase 35 U/L (6-50); Albumin Level 4.4 g/dL (3.5-5.1); Alkaline Phosphatase 72 U/L (38-126); Anion Gap 10 mmol/L (4-12); Aspartate Amino Transferase 35 U/L (17-59); Bilirubin,Total 0.6 mg/dL (0.2-1.3); Blood Urea Nitrogen 17 mg/dL (9-20); Calcium 9.2 mg/dL (8.4-10.2); Carbon Dioxide 26 mmol/L (22-30); Chloride 102 mmol/L (98-107); Estimated CRCL calculation 54 ml/min; Estimated Glomerular Filt Rate 45; Glucose 100 mg/dL (65-110); Lipase 185 U/L (23-300); Potassium 4.3 mmol/L (3.4-5.0); Sodium 138 mmol/L (137-145)
--- OUTSIDE RECORDS SUMMARY | 2024-11-17 16:13 | XMS_ITS | Data Portability ---
Author Organization [place] [facility] [employer], Main Office Address [address] [place] [address] Care Team Providers Care Medical Staff Assistant Name Role Phone VANDANA VALENZUELA Primary Care Provider VANDANA VALENZUELA Referring Provider Assessment Encounter Date Assessment Date Assessment LastModified by Organization Details LastModified Time 01/11/2023 01/11/2023 HPI: Patient returns. It has been 3 months since last cortisone injection into the right knee in both CMC joints. Shots worked well for him effects of the shot of worn and he wished to have continued injections today. He has severe osteoarthritis in his right knee. He also has rather severe 1st CMC osteoarthritis in thumbs. Physical exam: 62-year-old male alert pleasant. He has zlpz-xb-mbabdgsv effusion right knee. Range of motion is from 0-135 degrees. Moderate tenderness over the medial joint line to palpation. He has moderate tenderness to palpation both 1st CMC joints in his thumbs. No redness or warmth noted After ChloraPrep was used on skin 20 mg Kenalog and 3 cc of 0.5% ropivacaine was injected into the right knee. And after ChloraPrep was used on this scan 5 mg Kenalog and 1 cc of 0.5% ropivacaine was injected in both 1st CMC joints. Patient tolerated injections well. Impression: 62-year-old male has severe medial compartment osteoarthritis in the right knee as well as rather severe 1st CMC osteoarthritis in both thumbs. Shots continue to work well for him. See him back in 3 months repeat injection. Not available 01/11/2023 14:13:43 04/23/2023 04/23/2023 HPI: Patient returns. It has been 3 months since his last cortisone injection into the right knee. Shots continue well for him. He wished to have another 1 today. He is also here for cortisone injections into both 1st CMC joints. He has severe osteoarthritis in both of these joints as well. Shots 3 months ago worked very well for him. Physical exam: 63-year-old male who walks well without limp. He has a moderate effusion in the right knee. Range of motion is from 0-130 degrees. Some mild tenderness over the medial joint line to palpation. He has moderate tenderness to palpation of both 1st CMC joints. No redness or warmth noted. After ChloraPrep was used on skin 20 mg Kenalog and 3 cc of 0.5% ropivacaine was injected into the right knee. And after ChloraPrep was used on the skin 5 mg Kenalog and 1 cc of 0.5% ropivacaine was injected into both 1st CMC joints. Patient tolerated all injections well. Impression: 63-year-old male who has severe medial compartment osteoarthritis in the right knee as well as severe 1st CMC osteoarthritis in both thumbs. Shots continue to work well for him. We will see him in 3 months for repeat injections. Not available 04/23/2023 12:59:43 07/23/2023 07/23/2023 HPI: Patient returns. It has been 3 months since his last cortisone injection right knee as well as both of his 1st CMC joints. He did well with the injections last time he wishes to continue with them. He has rather severe medial compartment osteoarthritis in the knee. He also has severe 1st CMC osteoarthritis in both thumbs. He is not able take anti-inflammatori es as he is on blood thinner. Physical exam: 63-year-old male alert pleasant. He has vrps-lt-lkuazses effusion right knee. Mild varus alignment. Range motion is from 7-125 degrees. He has trace edema both lower extremities. After ChloraPrep was used on skin 20 mg Kenalog and 3 cc of 0.5% ropivacaine was injected into the right knee. Patient has moderate tenderness 1st CMC joints in both hands. He has moderate pain with grind. 2+ radial pulse in both wrists. After ChloraPrep was used on skin 5 mg Kenalog and 1 cc of 0.5% ropivacaine was injected in both 1st CMC joints. Impression: 63-year-old male who has severe medial compartment osteoarthritis in the right knee and severe 1st CMC osteoarthritis in both thumbs. Shots continue to give him excellent benefit. We will see him back in 3 months. Not available 07/23/2023 14:18:17 11/12/2023 11/12/2023 HPI: Patient returns. He is here for cortisone injection right knee and both 1st CMC joints. Last shots were 3 months ago. He does get good improvement of his symptoms with the injections and wishes to continue with these. He has severe 1st CMC osteoarthritis in both thumbs. He also has severe medial compartment osteoarthritis in the right knee. Physical exam: 63-year-old male alert pleasant. He has a drnk-ck-nsfreovn effusion right knee. No redness or warmth. Range of motion is from 5-130 degrees. He has mild tenderness over the medial joint line. He has moderate tenderness over both 1st CMC joints. There is no swelling noted. No numbness or tingling in the hand. 2+ radial pulse in both wrists. After her alcohol prep 20 mg Kenalog and 3 cc of 0.5% ropivacaine was injected into the right knee. And after alcohol prep 5 mg Kenalog and 1 cc of 0.5% ropivacaine was injected in both 1st CMC joints. Impression: 63-year-old male who has severe medial compartment osteoarthritis the right knee as well as severe 1st CMC osteoarthritis in both thumbs. Shots continue to give him good benefit. We will see him in 3 months. Not available 11/12/2023 14:45:07 Plan of Treatment Reminders Order Date Submit Date Provider Last Modified By Organization Details Last Modified Time Details Appointments None recorded. Lab None recorded. Referral None recorded. Procedures injection/a spiration joint/bursa (PROC) - in office procedure, administere d by provider 2023 024 In-Office Order, Internal Use Only DO Not Attach Compendium DO Not Attach Compendium, Do Not Delete/merge, [id number] 14:17:58 injection/a spiration joint/bursa (PROC) - in office procedure, administere d by provider 2023 024 [email or web address] In-Office Order, Internal Use Only DO Not Attach Compendium DO Not Attach Compendium, Do Not Delete/merge, [id number] 4 14:17:59 injection/a spiration joint/bursa (PROC) - in office procedure, administere d by provider 2022 023 [email or web address] In-Office Order, Internal Use Only DO Not Attach Compendium DO Not Attach Compendium, Do Not Delete/merge, [id number] 3 14:12:08 injection/a spiration joint/bursa (PROC) - in office procedure, administere d by provider 2022 023 [email or web address] In-Office Order, Internal Use Only DO Not Attach Compendium DO Not Attach Compendium, Do Not Delete/merge, [id number] 3 12:23:39 injection/a spiration joint/bursa (PROC) - in office procedure, administere d by provider 2022 023 [email or web address] In-Office Order, Internal Use Only DO Not Attach Compendium DO Not Attach Compendium, Do Not Delete/merge, [id number] 3 12:54:07 injection/a spiration joint/bursa (PROC) - in office procedure, administere d by provider 2022 023 [email or web address] In-Office Order, Internal Use Only DO Not Attach Compendium DO Not Attach Compendium, Do Not Delete/merge, [id number] 3 13:46:26 injection/a spiration joint/bursa (PROC) - in office procedure, administere d by provider 2022 023 [email or web address] In-Office Order, Internal Use Only DO Not Attach Compendium DO Not Attach Compendium, Do Not Delete/merge, [id number] 3 14:03:35 Surgeries None recorded. Imaging XR, knee 2022 023 [email or web address] [facility] [place], [address], [place], [address], 3 15:44:15 Medication Orders Kenalog 10 mg/mL suspension for injection [email or web address] [facility]87, [address] [place], [place], [id number], 4 14:45:29 ropivacaine (PF) 5 mg/mL (0.5 %) injection solution [address] [facility]211, [address] [place], [place], [id number], 4 14:45:29 Kenalog 10 mg/mL suspension for injection [address] [facility]77565, [address] [place], [place], [id number], 4 14:45:29 ropivacaine (PF) 5 mg/mL (0.5 %) injection solution [address] [facility]50525, [address] [place], [place], [id number], 4 14:45:29 Kenalog 10 mg/mL suspension for injection [address] [facility]65583, [address] [place], [place], [id number], 3 15:48:59 ropivacaine (PF) 5 mg/mL (0.5 %) injection solution [address] [facility]63648, [address] [place], [place], [id number], 3 15:48:59 Kenalog 10 mg/mL suspension for injection [email or web address] [facility]41934, [address] [place], [place], [id number], 3 13:56:32 ropivacaine (PF) 5 mg/mL (0.5 %) injection solution 2022 [address] [facility] [facility], [address] [place], [place], [id number], 3 13:57:08 Kenalog 10 mg/mL suspension for injection 2022 023 [facility] [facility], [address] [place], [place], [id number], 3 13:56:32 ropivacaine (PF) 5 mg/mL (0.5 %) injection solution 2022 023 [facility] [facility], [address] [place] [address], [id number], 3 13:57:08 Kenalog 10 mg/mL suspension for injection 2022 023 [facility] [facility], [address] [place], [place], [id number], 3 13:56:32 ropivacaine (PF) 5 mg/mL (0.5 %) injection solution 2022 023 [facility], [address] [place], [place], [id number], 3 13:57:08 Kenalog 10 mg/mL suspension for injection [address] [place], [place] [address]761, [address] [place], [place], [id number], 3 13:56:32 ropivacaine (PF) 5 mg/mL (0.5 %) injection solution [email or web address] [facility] #36178, [address], [place], [place], [id number], 3 13:57:08 Patient TargetsNo targets recorded. Patient InstructionsNo instructions recorded. Reason for Referral None Reported. Results Created Date Observation Date Name Description Value Unit Range Abnormal Flag Note LastModifiedBy Organization Detail LastModifiedTime 04/23/20 23 XR, knee No observ ation record ed. [facility] [place] [address], [place], [address], 04/23/2023 12:58:15 Result Notes None recorded. Problems Name Problem SNOMED Code Status Onset Date Resolution Date Notes Provider Name and Address Organization Details Recorded Time Osteoarthr itis of right knee joint 3187459996176 00 Active 2022 SAMM Lucas, [facility] [employer] [facility] 3 13:44:54 Bilateral thumb pain 4602757115137 9102 Active 2022 Maryjane esteban, [facility] [employer] [facility] 3 14:09:48 Pain of bilateral hands 4792250260347 9109 Active 2022 Not Available [facility] 3 04:51:03 Osteoarthr itis of knee 703175436 Active 2021 Not Available [facility] 3 04:51:03 Osteoarthr itis 116595173 Active Not Available [facility] 3 04:51:03 Problem Notes None recorded. Procedures Surgical History Date Name Laterality Status Provider Name and Address Organization Details Recorded Time Knee completed Not Available [facility] 09/2022 04:42:13 Gallbladder Surgery completed Not Available [facility] 11/04/2022 04:42:13 procedure completed Not Available [facility] 0 11/04/2022 04:42:13 Imaging Results Imaging Date Name Status LastModified by Organiz ation Details LastModified Time 04/23/2023 XR, knee completed [facility] [place] [address], [place], [address], 04/23/2023 12:58:15 Procedure Notes None recorded. Medical Equipment None Reported. Allergies No known drug allergies Medications Name Sig Start Date Stop Date Status Note LastModified by Organization Details LastModified Time doxycycline hyclate 100 mg capsule 01/11 completed Not Available Not Available Not Available clindamycin HCl 300 mg capsule TAKE 1 CAPSULE BY MOUTH 4 TIMES DAILY FOR 10 DAYS active Not Available Not Available No t Available azithromyci n 250 mg tablet 10/12 completed Not Available Not Available Not Available hydrocodone 5 mg-acetamin ophen 325 mg tablet TAKE 1 TABLET BY MOUTH EVERY 6 HOURS NEEDED FOR PAIN RATED 4 6 active Not Available Not Available No t Available phenazopyri dine 200 mg tablet TK 1 T PO TID FOR 2 DAYS 06/21 completed Not Available Not Available Not Available famotidine 40 mg tablet TK 1 T PO QD 06/21 completed Not Available Not Available Not Available bupivacaine HCl 0.5 % (5 mg/mL) injection solution In office injection administe red by the provider 03/20 completed Not Available Not Available Not Available penicillin V potassium 500 mg tablet TAKE 1 TABLET BY MOUTH EVERY 12 HOURS active Not Available Not Available No t Available acetaminoph en 300 mg-codeine 30 mg tablet TAKE 1 TABLET BY MOUTH EVERY 6 HOURS NEEDED FOR PAIN active Not Available Not Available No t Available valacyclovi r 500 mg tablet TAKE 1 TABLET BY MOUTH THREE TIMES DAILY FOR 5 DAYS 07/23 completed Not Available Not Available Not Available ciprofloxac in 500 mg tablet TAKE 1 TABLET BY MOUTH EVERY 12 HOURS active Not Available Not Available No t Available sulfamethox azole 800 mg-trimetho prim 160 mg tablet TK 1 T PO Q 12 H 06/21 completed Not Available Not Available Not Available tramadol 50 mg tablet TAKE 1 TABLET BY MOUTH EVERY 6 HOURS active Not Available Not Available No t Available sildenafil 100 mg tablet TAKE 1/2 TABLET BY MOUTH DAILY NEEDED FOR SEXUAL ACTIVITY. TAKE 30 MINUTES TO 4 HOURS PRIOR active Not Available Not Available No t Available spironolact one 25 mg tablet TAKE 1 TABLET BY MOUTH TWICE DAILY active Not Available Not Available No t Available oxycodone-a cetaminophe n 5 mg-325 mg tablet TAKE 1 TABLET BY MOUTH EVERY 4 TO 6 HOURS NEEDED FOR PAIN active Not Available Not Available No t Available terbinafine HCl 250 mg tablet TAKE 1 TABLET BY MOUTH DAILY FOR 12 WEEKS active Not Available Not Available No t Available alprazolam 0.25 mg tablet TK 1 T PO TID PRA 03/19 completed Not Available Not Available Not Available furosemide 80 mg tablet active Not Available Not Available Not Available Kenalog 10 mg/mL suspension for injection in office 2023 active [facility]: 0003- 0494- 20 Not Available Not Available Not Available hydrocodone 7.5 mg-acetamin ophen 325 mg tablet TAKE ONE TABLET BY MOUTH EVERY 4 TO 6 HOURS NEEDED FOR PAIN active Not Available Not Available No t Available hydralazine 100 mg tablet TK 1 T PO TID WF active Not Available Not Available No t Available ferrous sulfate 325 mg (65 mg iron) tablet TAKE 1 TABLET PO BID 05/06 completed Not Available Not Available Not Available valsartan 320 mg tablet active Not Available Not Available Not Available candesartan 32 mg tablet active Not Available Not Available Not Available folic acid 1 mg tablet TAKE 1 TABLET BY MOUTH DAILY active Not Available Not Available No t Available mupirocin 2 % topical ointment APPLY TOPICALLY TO THE AFFECTED AREA TWICE DAILY active Not Available Not Available No t Available cefuroxime axetil 500 mg tablet TK 1 T PO Q 12 H 06/09 completed Not Available Not Available Not Available levofloxaci n 500 mg tablet TAKE 1 TABLET BY MOUTH DAILY active Not Available Not Available No t Available levofloxaci n 750 mg tablet TAKE 1 TABLET BY MOUTH EVERY DAY active Not Available Not Available No t Available albuterol sulfate HFA 90 mcg/actuati on aerosol inhaler INHALE 1 PUFF BY MOUTH EVERY 4 HOURS NEEDED FOR SHORTNESS OF BREATH OR WHEEZING active Not Available Not Available No t Available clotrimazol e 1 % topical cream APPLY TOPICALLY TO FOOT RASH TWICE DAILY FOR 4 WEEKS active Not Available Not Available No t Available doxycycline hyclate 100 mg tablet TAKE 1 TABLET BY MOUTH TWICE DAILY active Not Available Not Available No t Available rosuvastati n 5 mg tablet active Not Available Not Available Not Available rosuvastati n 10 mg tablet TAKE 1 TABLET BY MOUTH DAILY. DISCONTIN UE HIGHER DOSE OF ROSUVASTA TIN 07/23 completed Not Available Not Available Not Available rosuvastati n 40 mg tablet 07/23 completed Not Available Not Available Not Available Klor-Con M20 mEq tablet,exte nded release active Not Available Not Available Not Available Diovan 2018 active Not Available Not Available Not Avai lable lidocaine (PF) 10 mg/mL (1 %) injection solution In office injection administe red by the provider 03/20 completed [facility]: 0409- [phone]- 17 Not Available Not Available Not Available lidocaine (PF) 20 mg/mL (2 %) injection solution In office injection administe red by the provider 03/20 completed Not Available Not Available Not Available lidocaine (PF) 5 mg/mL (0.5 %) injection solution In office injection administe red by the provider 10/12 completed Not Available Not Available Not Available Bystolic 10 mg tablet active Not Available Not Available No t Available Bystolic 05/06 completed Not Available Not Available Not Available Travel Sickness (meclizine) 25 mg chewable tablet TK 1 T PO TID PRF DIZZINESS 06/09 completed Not Available Not Available Not Available Suprep Bowel Prep Kit 17.5 gram-3.13 gram-1.6 gram oral solution MIX AND DRINK UTD 06/21 completed Not Available Not Available Not Available Pradaxa 150 mg capsule TK 1 C PO BID 05/06 completed Not Available Not Available Not Available testosteron e 10 mg/0.5 gram/actuat ion transdermal gel pump APPLY 3 PUMPS EVENLY OVER FRONT AND INNER AREA OF EACH THIGH TRANSDERM ALLY EVERY AM. AVOID WATER FOR AT LEAST 2 HOURS active Not Available Not Available No t Available testosteron e 20.25 mg/1.25 gram per pump act.(1.62 %) transdermal gel APPLY 3 PUMPS TOPICALLY TO THE AFFECTED AREA DAILY active Not Available Not Available No t Available ropivacaine (PF) 5 mg/mL (0.5 %) injection solution in office 2023 active [facility] 73063 -064- 01 Not Available Not Available Not Available Xarelto 20 mg tablet TK 1 T PO QD AT 5PM active Not Available Not Available No t Available Farxiga 5 mg tablet TAKE 1 TABLET BY MOUTH DAILY 07/23 completed Not Available Not Available Not Available potassium chloride ER 20 mEq tablet,exte nded release 07/23 completed Not Available Not Available Not Available Vitals Date Recorded Body mass index (BMI) Body height Body weight Provider Name and Address Organization Details Last Updated DateTime 10/12/2022 40 kg/m2 172.72 cm 385769.79 g Not Available [facility] 11/04/2022 04:48:25 Date Recorded Body height Provider Name an d Address Organization Details Last Updated DateTime 01/11/2023 172.72 cm Jessica Viera [facility] [employer] [facility] [employer] [facility] 01/11/2023 13:43:59 Date Recorded Body height Provider Name an d Address Organization Details Last Updated DateTime 04/23/2023 172.72 cm Jessica Viera [employer] [facility] [employer] [facility] 04/23/2023 12:21:38 Date Recorded Body height Body mass index (BMI) Body weight Provider Name and Address Organization Details Last Updated DateTime 07/23/2023 170.18 cm 41.7 kg/m2 088733.57 g Jessica Viera [facility] [employer] [facility] [employer] [facility] 07/23/2023 14:04:08 Date Recorded Body height Provider Name an d Address Organization Details Last Updated DateTime 11/12/2023 170.18 cm Jessica Viera [facility] [employer] [facility] 11/12/2023 14:14:00 Social History Question Answer Notes LastModified by Organizat ion Details LastModified Time Tobacco Smoking Status Never Smoker Not Available [facility] 11/04/2022 04:41:33 What Is Your Level Of Alcohol Consumption? Occasional [id number] Information not available 11/04/2022 How Much Tobacco Do You Smoke? No [id number] Information not available 11/04/2022 Sex: Unknown Functional Status None recorded. Mental Status None recorded. Family History Relationship Description Onset Age of this Age Resolved Age Notes LastModified by Organization Details LastModified Time Father Family history of malignant neoplasm [id number] Not available 11/04/2022 04:42:20 Father Hypertensive disorder [id number] Not available 11/04/2022 04:42:20 Mother Family history of malignant neoplasm [id number] Not available 11/04/2022 04:42:20 Brother Kidney disease [id number] Not available 11/04/2022 04:42:20 Father Heart disease [email or web address] Not available 2022 13:58:34 Brother Hypertensive disorder [email or web address] Not available 2022 13:59:03 Medical History Condition Response ARTHRITIS Y USE OF BLOOD THINNERS Y BLOOD CLOTS Y STROKE/TIA Y HEART DISEASE/HEART PROBLEMS Y HYPERTENSION Y ANEMIA/BLOOD DISORDER Y Past Encounters Encounter ID Performer Location Encounter Start Date Encounter Closed Date Diagnosis/Indication Diagnosis SNOMED-CT Code Diagnosis ICD10 Code Diagnosis Note [id number] [facility] [place] [address] [place] [address] 12/18/2020 00:00:00 12/18/2020 14:04:44 [id number] [facility] [place] [address] [place] [address] 03/19/2021 00:00:00 03/19/2021 14:48:28 [id number] [facility] [place] [address] [place] [address] 06/18/2021 00:00:00 06/18/2021 14:28:21 [id number] [facility] [place] [address] [place] [address] 09/24/2021 00:00:00 09/24/2021 14:12:19 [id number] [facility] [place] [address] [place] [address] 12/17/2021 00:00:00 12/17/2021 14:05:02 [id number] [facility] [place] [address] [place] [address] 03/20/2022 00:00:00 03/20/2022 14:21:39 [id number] [facility] [place] [address] [place] [address] 06/24/2022 00:00:00 06/24/2022 15:57:01 [id number] [facility] [place] [address] [place] [address] 07/10/2022 00:00:00 07/10/2022 15:41:21 [id number] [facility] [place] [address] [place] [address] 10/12/2022 00:00:00 10/12/2022 14:55:14 [id number] JULIANA Yates [facility] [place] [address] [place] [address] 01/11/2023 13:41:36 01/11/2023 14:23:07 Osteoarthritis of right knee joint 0736084131 05354 M17.11 Pain of bi lateral hands 2609919132 6665393 M79.641 M79.642 [id number] JULIANA Yates [facility] [place] [address] [place] [address] 04/23/2023 12:18:25 04/23/2023 13:06:22 Osteoarthritis of right knee joint 0132282382 48664 M17.11 Pain of bi lateral hands 4626732541 [id number] M79.641 M79.510 [id number] JULIANA Yates [facility] [place] [address] [place] [address] 07/23/2023 13:34:53 07/23/2023 14:19:30 Osteoarthritis of right knee joint 5745119449 72723 M17.11 Bilateral thumb pain 062 1313899 8675809 M79.644 M79.774 [id number] JULIANA Yates [facility] [place] [address] [place] [address] 11/12/2023 14:08:04 11/12/2023 15:43:17 Osteoarthritis of right knee joint 3127658842 55437 M17.11 Bilateral thumb pain 163 8644375 4449279 M79.644 M79.645 Health Concerns Section Related Observation LastModified by Organization Detai ls LastModified Time None Recorded Concern Status LastModified by Organization Details LastModified Time None Recorded Advance Directives Directive None Recorded Payers Encounter Date Sequence Insurance Name Policy Number Policy Schumacher Covered Member ID Schumacher Member ID Guarantor Name 01/11/2023 1 [employer] (MEDICARE REPLACEMENT PPO) [id number] 1 Jaden Leslie Tepfer [id number] Jaden Jin 04/23/2023 1 [employer] (MEDICARE REPLACEMENT PPO) [id number] Jaden Leslie Tepfer [id number] Jaden Jin 07/23/2023 1 [employer] (MEDICARE REPLACEMENT PPO) [id number] Jaden Leslie Tepfer [id number] Jaden Jin 11/12/2023 1 [employer] (MEDICARE REPLACEMENT PPO) [id number] Jaden Leslie Tepfer [id number] Jaden Jin
[2024-11-17 16:17] VITALS: BP 129/74; PULSE 77; RESP 20; TEMP 36.6; O2SAT 97
[2024-11-17 17:55] VITALS: BP 124/80; PULSE 80; RESP 16; TEMP 36.6; O2SAT 100
== END 2024-11-17 17:57 | disposition home or self-care (01) ==
PROVIDERS: Physician Assistant; Emergency Provider Family Medicine; PCP Internal Medicine
DX: A04.72 Enterocolitis due to Clostridium difficile, not specified as recurrent (principal); E78.5 Hyperlipidemia, unspecified; I13.0 Hypertensive heart and chronic kidney disease with heart failure and stage 1 through stage 4 chronic kidney disease, or unspecified chronic kidney disease; I50.32 Chronic diastolic (congestive) heart failure; N18.9 Chronic kidney disease, unspecified; I48.20 Chronic atrial fibrillation, unspecified; J45.909 Unspecified asthma, uncomplicated; E55.9 Vitamin D deficiency, unspecified; M17.11 Unilateral primary osteoarthritis, right knee; G47.33 Obstructive sleep apnea (adult) (pediatric); Z86.73 Personal history of transient ischemic attack (TIA), and cerebral infarction without residual deficits; Z86.0100 Personal history of colon polyps, unspecified; Z87.442 Personal history of urinary calculi; Z87.440 Personal history of urinary (tract) infections; Z90.49 Acquired absence of other specified parts of digestive tract; Z79.01 Long term (current) use of anticoagulants; Z79.899 Other long term (current) drug therapy; N28.1 Cyst of kidney, acquired; K44.9 Diaphragmatic hernia without obstruction or gangrene; R16.0 Hepatomegaly, not elsewhere classified; K76.89 Other specified diseases of liver
CPT/HCPCS: 36415; 74177; 80053; 83690; 85025; 99284; Q9967

== ENCOUNTER 2024-12-03 13:16 | Inpatient (IN) | payer MEDICARE, SELFPAY ==
--- NOTE | ~2024-12-03 | CT_ITS ---
EXAMINATION: CT abdomen pelvis wo con DATE: 12/03/2024 15:05 INDICATION: r flank pain, uti, hx stones TECHNIQUE: Computed tomography (CT) of the abdomen and pelvis was performed without intravenous contr ast. Automated exposure control and iterative reconstruction technique were employed. The dose-length product was 619.49 mGy-cm. COMPARISON: 11/17/2024. FINDINGS: Lower thorax: Unremarkable Liver: Multiple simple liver cysts. Hepatomegaly. Biliary/Gallbladder: Gallbladder is absent. No bile duct dilation. Pancreas: No mass or duct dilation. Spleen: Normal. Adrenals:No mass. Kidneys: Simple left midpole right lower pole cysts. Bilateral nonobstructing calculi. 1.6 cm indeter minate density left midpole lesion, no significant enhancement in the prior CT, likely proteinaceous or hemorrhagic cyst. 1.8 cm indeterminate density right upper pole lesion, apparent enhancement enhan cement in the prior CT. GI tract: Small hiatal hernia. No small or large bowel dilation. Normal appendix. Diverticulosis with out diverticulitis. Mesentery/Peritoneum: No ascites, mass, or free air. Retroperitoneum: Enlarged retroperitoneal lymph nodes. Atherosclerotic calcifications of intra-abdomi nal arterial vessels. Pelvis: Mild urinary bladder wall thickening in a partially distended urinary bladder. Prostatomegaly .. Soft Tissues: Moderate uncomplicated appearing fat-containing left inguinal hernia. Bones: No acute osseous finding. IMPRESSION: Hepatomegaly. 1.8 cm suspicious right upper pole lesion, apparent enhancing soft tissue components when compared wi th prior CT on 11/17/2024, in an area where a large simple cyst was previously noted in 2019, may repr esent residual change post cyst rupture or new lesion, recommend MRI of the kidneys without and with contrast for further characterization. No CT evidence of obstructive uropathy. Retroperitoneum lymphadenopathy. Reviewed, dictated and finalized at location K. IMPRESSION: Hepatomegaly. 1.8 cm suspicious right upper pole lesion, apparent enhancing soft tissue compo nents when compared with prior CT on 11/17/2024, in an area where a large simple cyst was previously noted in 2019, may represent residual change post cyst rup ture or new lesion, recommend MRI of the kidneys without and with contrast for further characterization. No CT evidence of obstructive uropathy. Retroperitoneum lymphadenopathy.
--- NOTE | ~2024-12-03 | MR_ITS ---
EXAMINATION: MR abdomen wo/w con DATE: 12/04/2024 09:02 INDICATION: Right upper pole kidney lesion. TECHNIQUE: Magnetic resonance imaging (MRI) of the abdomen was performed without and with 20 mL Multi Luciana intravenous contrast. COMPARISON: CT abdomen and pelvis 12/03/2024, 11/17/2024, abdomen MRI 08/24/2018 FINDINGS: There is diffuse hepatic steatosis. There are cysts in the kidneys measuring up to 13 mm. The gallbla dder is absent. There is a small sliding hernia. The spleen, pancreas, and adrenal glands are normal. There are cysts in the kidneys measuring up to 2.0 cm on the right. In the right kidney, there is a 1.4 cm cystic mass with thick hypoenhancing wall. There are old blood products in the wall. On 2017, there was a 4.2 cm simple cyst at this spot. There are no dilated loops of bowel. There are no pathologically enlarged lymph nodes. There is no free intraperitoneal fluid. IMPRESSION: 1. 1.4 cm Bosniak type III cystic lesion of right kidney. Note that the time course of findings decre ases the odds of malignancy relative to other Bosniak type III lesions. Reviewed, dictated and finalized at location A. IMPRESSION: 1. 1.4 cm Bosniak type III cystic lesion of right kidney. Note that the time co urse of findings decreases the odds of malignancy relative to other Bosniak typ e III lesions.
--- OUTSIDE RECORDS SUMMARY | 2024-12-03 13:19 | XMS_ITS | Referral Summary ---
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
--- OUTSIDE RECORDS SUMMARY | 2024-12-03 13:19 | XMS_ITS | Clinical Summary ---
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
[2024-12-03 13:46] VITALS: PULSE 91; RESP 18; TEMP 37.4; O2SAT 98
--- OUTSIDE RECORDS SUMMARY | 2024-12-03 14:14 | XMS_ITS | Referral Summary ---
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
--- OUTSIDE RECORDS SUMMARY | 2024-12-03 14:14 | XMS_ITS | Data Portability ---
Author Organization [place] [facility], Main Office Address [address] [place] [address] Care Team Providers Care Lens Blocker Name Role Phone VANDANA VALENZUELA Primary Care [...] exam: 62-year-old male alert pleasant. He has htet-tm-kroivamc effusion right knee. Range of motion is [...] exam: 63-year-old male alert pleasant. He has vsiu-jg-usfslcao effusion right knee. Mild varus alignment. Range [...] 63-year-old male alert pleasant. He has a puyw-yp-akmziiuq effusion right knee. No redness or warmth. [...] procedure, administere d by provider 2023 024 [email or web address] In-Office Order, Internal Use Only DO Not Attach Compendium DO Not Attach Compendium, Do Not Delete/merge, [id number] 4 14:17:58 injection/a spiration joint/bursa (PROC) - in office procedure, administere d by provider 2023 024 [email or web address] In-Office Order, Internal Use Only DO Not Attach Compendium DO Not Attach Compendium, Do Not Delete/merge, [id number] 4 14:17:59 injection/a spiration joint/bursa (PROC) - in office procedure, administere d by provider 2022 023 [email or web address] In-Office Order, Internal Use Only DO Not Attach Compendium DO Not Attach Compendium, Do Not Delete/merge, [id number] 3 14:12:08 injection/a spiration joint/bursa (PROC) - in office procedure, administere d by provider 2022 023 [email or web address] In-Office Order, Internal Use Only DO Not Attach Compendium DO Not Attach Compendium, Do Not Delete/merge, [id number] 3 12:23:39 injection/a spiration joint/bursa (PROC) - in office procedure, administere d by provider 2022 023 In-Office Order, Internal Use Only DO Not Attach Compendium DO Not Attach Compendium, Do Not Delete/merge, [id number] 3 12:54:07 injection/a spiration joint/bursa (PROC) - in office procedure, administere d by provider 2022 023 [email or web address] In-Office Order, Internal Use Only DO Not Attach Compendium DO Not Attach Compendium, Do Not Delete/merge, [id number] 3 13:46:26 injection/a spiration joint/bursa (PROC) - in office procedure, administere d by provider 2022 023 [email or web address] In-Office Order, Internal Use Only DO Not Attach Compendium DO Not Attach Compendium, Do Not Delete/merge, [id number] 3 14:03:35 Surgeries None recorded. Imaging XR, knee 2022 023 [email or web address] [facility] [place], [address], [place], [address], 3 15:44:15 Medication Orders Kenalog 10 mg/mL suspension for injection [email or web address] [facility], [address] [place], [place], [id number], 4 14:45:29 ropivacaine (PF) 5 mg/mL (0.5 %) injection solution [address] [facility]86149, [address] [place], [place], [id number], 4 14:45:29 Kenalog 10 mg/mL suspension for injection [address] [facility]31922, [address] [place], [place], [id number], 4 14:45:29 ropivacaine (PF) 5 mg/mL (0.5 %) injection solution [address] [facility]32608, [address] [place], [place], [id number], 4 14:45:29 Kenalog 10 mg/mL suspension for injection [address] [facility]56473, [address] [place], [place], [id number], 3 15:48:59 ropivacaine (PF) 5 mg/mL (0.5 %) injection solution [address] [facility]51560, [address] [place], [place], [id number], 3 15:48:59 Kenalog 10 mg/mL suspension for injection [email or web address] [facility]61219, [address] [place], [place], [id number], 3 13:56:32 ropivacaine (PF) 5 mg/mL (0.5 %) injection solution [address] [facility], [address] [place], [place], [id number], 3 13:57:08 Kenalog 10 mg/mL suspension for injection [address], [address] [place], [place], [id number], 3 13:56:32 ropivacaine (PF) 5 mg/mL (0.5 %) injection solution [address], [address] [place] [address], [id number], 3 13:57:08 Kenalog 10 mg/mL suspension for injection [address] [facility]258, [address] [place], [place], [id number], 3 13:56:32 ropivacaine (PF) 5 mg/mL (0.5 %) injection solution 2022 [address] [facility] [facility], [address] [place], [place], [id number], 3 13:57:08 Kenalog 10 mg/mL suspension for injection [address] [place], [place] [address]36423, [address] [place], [place], [id number], 3 13:56:32 ropivacaine (PF) 5 mg/mL (0.5 %) injection solution 2022 023 [email or web address] [facility] #25036, [address] [facility], [place], [place], [id number], 3 13:57:08 Patient TargetsNo targets recorded. Patient InstructionsNo instructions recorded. Reason for Referral None Reported. Results Created Date Observation Date Name Description Value Unit Range Abnormal Flag Note LastModifiedBy Organization Detail LastModifiedTime 04/23/20 23 XR, knee No observ ation record ed. [facility] [place] [address], [place], [address], 04/23/2023 12:58:15 Result Notes None recorded. Problems Name Problem SNOMED Code Status Onset Date Resolution Date Notes Provider Name and Address Organization Details Recorded Time Osteoarthr itis of right knee joint 7659512082775 00 Active 2022 SAMM Lucas, [facility] [employer] [facility] 3 13:44:54 Bilateral thumb pain 0524444294605 9102 Active 2022 Maryjane esteban, [facility] [employer] [facility] 3 14:09:48 Pain of bilateral hands 1356293945105 9109 Active 2022 Not Available [facility] 3 04:51:03 Osteoarthr itis of knee 879656218 Active 2021 Not Available [facility] 3 04:51:03 Osteoarthr itis 521035333 Active Not Available [facility] 3 04:51:03 Problem Notes None recorded. Procedures Surgical History Date Name Laterality Status Provider Name and Address Organization Details Recorded Time Knee completed Not Available [facility] 09/2022 04:42:13 Gallbladder Surgery completed Not Available [facility] 11/04/2022 04:42:13 procedure completed Not Available [facility] 0 11/04/2022 04:42:13 Imaging Results Imaging Date Name Status LastModified by Organiz ation Details LastModified Time 04/23/2023 XR, knee completed [facility] [place] [address] [facility] [address], [place], [address], 04/23/2023 12:58:15 Procedure Notes None recorded. Medical [...] suspension for injection in office [address] [facility]: 0003- 0494- 20 Not Available Not Available [...] administe red by the provider 03/[address] [facility]: 0409- 4276- 17 Not Available Not Available [...] %) injection solution in office [address] [facility] 29660 -064- 01 Not Available Not Available Not [...] Updated DateTime 10/12/2022 40 kg/m2 172.72 cm 080714.79 g Not Available [facility] 11/04/2022 04:48:25 Date Recorded Body height Provider Name an d Address Organization Details Last Updated DateTime 01/11/2023 172.72 cm Jessica Viera [facility] [employer] [facility] [employer] [facility] 01/11/2023 13:43:59 Date Recorded Body height Provider Name an d Address Organization Details Last Updated DateTime 04/23/2023 172.72 cm Jessica Viera [employer] [facility] [employer] [facility] 04/23/2023 12:21:38 Date Recorded Body height Body mass index (BMI) Body weight Provider Name and Address Organization Details Last Updated DateTime 07/23/2023 170.18 cm 41.7 kg/m2 974071.57 g Jessica Viera [facility] [employer] [facility] [employer] [facility] 07/23/2023 14:04:08 Date Recorded Body height Provider Name an d Address Organization Details Last Updated DateTime 11/12/2023 170.18 cm Jessica Viera [facility] [employer] [facility] 11/12/2023 14:14:00 Social History Question Answer Notes LastModified by Organizat ion Details LastModified Time Tobacco Smoking Status Never Smoker Not Available [facility] 11/04/2022 04:41:33 What Is Your Level Of Alcohol Consumption? Occasional [id number] Information not available 11/04/2022 How Much Tobacco Do You Smoke? No [id number] Information not available 11/04/2022 Sex: Unknown Functional Status None recorded. Mental Status None recorded. Family History Relationship Description Onset Age of this Age Resolved Age Notes LastModified by Organization Details LastModified Time Father Family history of malignant neoplasm [id number] Not available 11/04/2022 04:42:20 Father Hypertensive disorder [id number] Not available 11/04/2022 04:42:20 Mother Family history of malignant neoplasm [id number] Not available 11/04/2022 04:42:20 Brother Kidney disease [id number] Not available 11/04/2022 04:42:20 Father Heart disease [email or web address] Not available 2022 13:58:34 Brother Hypertensive disorder [email or web address] Not available 2022 13:59:03 Medical History Condition Response HEART DISEASE/HEART PROBLEMS Y ARTHRITIS Y USE OF BLOOD THINNERS Y ANEMIA/BLOOD DISORDER Y BLOOD CLOTS Y HYPERTENSION Y STROKE/TIA Y Past Encounters Encounter ID Performer Location Encounter Start Date Encounter Closed Date Diagnosis/Indication Diagnosis SNOMED-CT Code Diagnosis ICD10 Code Diagnosis Note [id number] [facility] [place] [address] [place] [address] 12/18/2020 00:00:00 12/18/2020 14:04:44 [id number] [facility] [place] [address] [place] [address] 03/19/2021 00:00:00 03/19/2021 14:48:28 [id number] [facility] [place] [address] [place] [address] 06/18/2021 00:00:00 06/18/2021 14:28:21 [id number] [facility] [place] [address] [place] [address] 09/24/2021 00:00:00 09/24/2021 14:12:19 [id number] [facility] [place] [address] [place] [address] 12/17/2021 00:00:00 12/17/2021 14:05:02 [id number] [facility] [place] [address] [place] [address] 03/20/2022 00:00:00 03/20/2022 14:21:39 [id number] [facility] [place] [address] [place] [address] 06/24/2022 00:00:00 06/24/2022 15:57:01 [id number] [facility] [place] [address] [place] [address] 07/10/2022 00:00:00 07/10/2022 15:41:21 [id number] [facility] [place] [address] [place] [address] 10/12/2022 00:00:00 10/12/2022 14:55:14 [id number] JULIANA Yates [facility] [place] [address] [place] [address] 01/11/2023 13:41:36 01/11/2023 14:23:07 Osteoarthritis of right knee joint 2746475489 35365 M17.11 Pain of bi lateral hands 0242667219 2154756 M79.641 M79.642 [id number] JULIANA Yates [facility] [place] [address] [place] [address] 04/23/2023 12:18:25 04/23/2023 13:06:22 Osteoarthritis of right knee joint 6382715864 67875 M17.11 Pain of bi lateral hands 0460645547 5939503 M79.641 M79.404 [id number] JULIANA Yates [facility] [place] [address] [place] [address] 07/23/2023 13:34:53 07/23/2023 14:19:30 Osteoarthritis of right knee joint 3253119759 10112 M17.11 Bilateral thumb pain 812 7177275 9744335 M79.644 M79.423 [id number] JULIANA Yates [facility] [place] [address] [place] [address] 11/12/2023 14:08:04 11/12/2023 15:43:17 Osteoarthritis of right knee joint 8552862529 20675 M17.11 Bilateral thumb pain 678 0783092 7011779 M79.644 M79.645 Health Concerns Section Related Observation LastModified by Organization Detai ls LastModified Time None Recorded Concern Status LastModified by Organization Details LastModified Time None Recorded Advance Directives Directive None Recorded Payers Encounter Date Sequence Insurance Name Policy Number Policy Schumacher Covered Member ID Schumacher Member ID Guarantor Name 01/11/2023 1 [employer] (MEDICARE REPLACEMENT PPO) [id number] Jaden Leslie Tepfer [id number] Jaden Jin 04/23/2023 1 [employer] (MEDICARE REPLACEMENT PPO) [id number] Jaden Leslie Tepfer [id number] Jaden Jin 07/23/2023 1 [employer] (MEDICARE REPLACEMENT PPO) [id number] Jaden Leslie Tepfer [id number] Jaden Jin 11/12/2023 1 [employer] (MEDICARE REPLACEMENT PPO) [id number] Jaden Leslie Tepfer [id number] Jaden Jin
--- OUTSIDE RECORDS SUMMARY | 2024-12-03 14:14 | XMS_ITS | Clinical Summary ---
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
[2024-12-03 14:24] LABS: Add Urine Microscopic? YES; Appearance Urine Clear (Clear); Bacteria Urine None Seen /hpf; Bilirubin Urine Negative (Negative); Blood Urine Negative (Negative); Color Urine Yellow (Yellow); Glucose Urine UA Negative (Negative); Ketones Urine Negative (Negative); Leukocyte Esterase Ur 3+ LEU/UL (Negative); Nitrate Urine Negative (Negative); Protein Urine Negative (Negative); RBC Urine 0-2 /hpf (0-2); Specific Grav Ur 1.008 (1.001-1.035); Squamous Epithelial Cell Urine Occasional /hpf (Few); Urobilinogen Urine 0.2 mg/dL (<2.0); WBC Urine 51-100 /hpf (0-3); pH Urine 5.5 (5.0-9.0)
[2024-12-03 14:53] LABS: Influenza A QL RT-PCR Negative (Negative); Influenza B QL RT-PCR Negative (Negative); RSV RNA, RT-PCR Negative (Negative); SARS-CoV-2 RNA PCR Negative (Negative)
[2024-12-03 14:58] LABS: Basophils Absolute Auto 0.1 K/mm3 (0.0-0.1); Basophils Percent Auto 0.3 % (0.2-1.2); Eosinophils Absolute Auto 0.2 K/mm3 (0-0.3); Eosinophils Percent Auto 0.8 % (0-4.4); Hemoglobin 15.9 g/dL (14.0-18.0); Immature Granulocyte Absolute 0.09 K/mm3 (0.00-0.031); Immature Granulocyte Percent A 0.5 % (0-0.5); Lymphocytes Absolute Auto 1.03 K/mm3 (0.9-3.2); Lymphocytes Percent Auto 5.7 % (18.3-44.2); Mean Corpuscular HGB Conc 32.4 g/dl (32-36); Mean Corpuscular Hemoglobin 31.1 pg (26-34); Mean Corpuscular Volume 95.9 fl (80-100); Mean Platelet Volume 10.6 fl (7.4-10.4); Monocytes Absolute Auto 1.6 K/mm3 (0.1-0.6); Neutrophils Absolute Auto 15.2 K/mm3 (1.3-6.7); Neutrophils Percent Auto 83.7 % (45.5-73.1); Platelet Count Result 220 k/mm3 (150-375); Red Blood Count 5.11 M/mm3 (4.6-6.20); Red Cell Distribution Width 15.6 % (11.5-14.5); White Blood Count 18.2 K/mm3 (4.5-10.0)
[2024-12-03 15:08] LABS: Alanine Aminotransferase 30 U/L (6-50); Albumin Level 4.6 g/dL (3.5-5.1); Alkaline Phosphatase 69 U/L (38-126); Anion Gap 12 mmol/L (4-12); Aspartate Amino Transferase 26 U/L (17-59); Bilirubin,Total 1.8 mg/dL (0.2-1.3); Blood Urea Nitrogen 20 mg/dL (9-20); Calcium 9.3 mg/dL (8.4-10.2); Carbon Dioxide 26 mmol/L (22-30); Chloride 97 mmol/L (98-107); Estimated Glomerular Filt Rate 44; Glucose 104 mg/dL (65-110); Potassium 4.2 mmol/L (3.4-5.0); Sodium 135 mmol/L (137-145)
--- NOTE | 2024-12-03 15:12 | ED.MALEGU ---
HPI - Male Genitourinary General Chief complaint: Urogenital-Male <Yu Stoner PA-C - Last Filed: 12/03/24 21:06> Stated complaint: Poss UTI, Flu like S/Sx <Yu Stoner PA-C - Last Filed: 12/03/24 21:06> Time Seen by Provider: 12/03/24 14:04 <ELSY Cox Last Filed: 12/03/24 21:06> Source: patient <ELSY Cox Last Filed: 12/03/24 21:06> Mode of arrival: ambulatory <ELSY Cox Last Filed: 12/03/24 21:06> Limitations: no limitations <ELSY Cox Last Filed: 12/03/24 21:06> History of Present Illness HPI Narrative: Patient is a 64-year-old male, with PMH of CVA, AFIB on xarelto, who presents the ED with report of UTI symptoms. Patient reports over the last couple of days, he has been having pain throughout his bilateral flank regions, worse throughout his right flank. Does have history of recurrent UTIs and kidney stones. States he began having dysuria and frequency yesterday. Feels as though he is developing another UTI. He also reports since yesterday he has been having body aches, headache, fevers. Denies hematuria. Denies abdominal pain. Denies cough or congestion. Notes he recently finished oral vancomycin for C diff colitis related to multiple recent antibiotics. Diagnosed on 11/14. Finished abx on 11/27. Denies ongoing diarrhea. <Yu Stoner PA-C - Last Filed: 12/03/24 21:06> Related Data Home medications: Home Medications ?Medication ?Instructions ?Recorded ?Confirmed ?Last Taken ?Type spironolactone 25 mg tablet See Rx Instructions .Route .COMPLEX 07/10/24 12/03/24 Unknown History <ELSY Cox Last Filed: 12/03/24 21:06> Allergies/Adverse reactions: Allergies Allergy/AdvReac Type Severity Reaction Status Date / Time latex Allergy Unknown Unknown Verified 12/03/24 13:17 adhesive AdvReac Mild Other Verified 12/03/24 13:17 <Yu Stoner PA-C - Last Filed: 12/03/24 21:06> Review of Systems Review of Systems: All systems reviewed & are unremarkable except as noted in HPI. <Yu Stoner PA-C - Last Filed: 12/03/24 21:06> All systems reviewed & are unremarkable except as noted in HPI and below <Yu Stoner PA-C - Last Filed: 12/03/24 21:06> [facility] Past Medical History Medical History: Medical History Frequent UTI Early cataracts, bilateral Visual floaters Abnormal PSA acceleration with normal PSA Chronic cellulitis BMI 38.0-38.9,adult Follow up Hematuria, gross Scrotal abscess Right foot pain Right ankle pain Primary osteoarthritis of right knee Essential (primary) hypertension UTI (urinary tract infection) HERI on CPAP Encounter for Medicare annual wellness exam Renal cyst Chronic low back pain Chronic pain Hyperlipidemia Vision changes DJD (degenerative joint disease) CKD (chronic kidney disease) Encounter for preventive health examination Lymphedema Encounter for special screening examination for neoplasm of prostate Mild reactive airways disease BMI 39.0-39.9,adult On buttermaker drug therapy Encounter for surgical aftercare following surgery on the digestive system Umbilical hernia (Unknown) Chronic diastolic heart failure (Unknown) Obstructive sleep apnea treated with continuous positive airway pressure (CPAP) (Unknown) Vitamin D deficiency Hx of colonic polyps (Unknown) History of CVA (cerebrovascular accident) August of 2018 History of kidney stones Body mass index (BMI) 40.0-44.9, adult (Unknown) History of reduction of nasal fracture Abscess Perineal abscess status post I&D in August of 2018 Hypogonadism in male Hearing loss Elevated homocysteine Other iron deficiency anemias A-fib (Unknown) Chronic atrial fibrillation Conn's syndrome HYPERALDOSTERONISM Hyperlipidemia Benign essential hypertension <Yu Stoner PA-C - Last Filed: 12/03/24 21:06> Surgical History Surgical History: Surgical History S/P cholecystectomy Hx laparoscopic cholecystectomy Hx of colonoscopy History of knee surgery bilateral History of hernia repair Open right inguinal hernia repair with mesh estimated in 2004 <Yu Stoner PA-C - Last Filed: 12/03/24 21:06> Family History Family History: Family History Father Esophageal cancer Family history of obesity Hypertension Mother Family history of malignant neoplasm of breast in first degree relative Sibling Colon cancer <Yu Stoner PA-C - Last Filed: 12/03/24 21:06> Social History Social History: Social History Smoking status: Never smoker Alcohol intake: current Drinks per week: 2 Alcohol use details: Occasional alcohol, rare in recent years Substance use: never Substance use type: does not use Do You Feel Safe in your Home?: Yes Lack of Transportation: No Lack of Food: Never True Current Housing: I Have Housing Concerned About Future Housing: No Difficulty Paying Gas/Electric Bills: No Difficulty Paying for Meds: No Currently Unemployed: No Education: High School Diploma/GED Difficulty w/ Childcare or Family Care: No Living arrangements: with family Additional living arrangements comments: Lives with his . Occupation/Education: other Additional occupation/education comments: Currently on disability after his stroke in August of 2018. Previously worked at [email or web address]. Gender identity (if verbalized by the patient): Male Spiritual care concerns: No Agree to blood products: Yes <Yu Stoner PA-C - Last Filed: 12/03/24 21:06> Exam Narrative: GENERAL: Mildly ill appearing, obese with BMI of 39.6, non-toxic, in no acute distress. HEAD: Normocephalic, atraumatic. RESPIRATORY: Airway patent, respirations nonlabored. Clear to auscultation bilaterally, no rales, rhonchi, wheezing. CARDIOVASCULAR: Regular rate with irregular rhythm without murmurs, rubs, or gallops. ABDOMINAL: Soft, No significant tenderness throughout abdomen, nondistended. Normoactive BS. Mild diffuse tenderness in bilateral CVA regions. MUSCULOSKELETAL: Moves all extremities. No gross deformities. SKIN: Warm, dry, normal color. NEURO: A&O X3. Speech clear. PSYCHIATRIC: Appropriate mood and affect. Normal interaction. <Yu Stoner PA-C - Last Filed: 12/03/24 21:06> Course [employer]/PA Physician Supervision I agree with midlevel documentation; I performed the medical decision making component of this evaluation. I had independent [id number] time with the patient and performed my own independent evaluation and assessment. Patient has been having subjective fever chills and myalgias. Does have evidence urinary tract infection and has had antibiotic resistant E coli in the past. Borderline febrile here and received anti-inflammatories. Currently on antibiotics. He is otherwise well-appearing on reassessments. Will be admitted for observation and continued treatments. Hospitalist in agreement with plan. <Crescencio Hauser MD - Last Filed: 12/03/24 19:07> Vital Signs Vital signs: Vital Signs Temperature 99.3 F 12/03/24 13:46 Pulse Rate 91 12/03/24 13:46 Respiratory Rate 18 12/03/24 13:46 Pulse Oximetry 98 12/03/24 13:46 Oxygen Delivery Room Air 12/03/24 13:46 Temperature 99.9 F H 12/03/24 16:07 Pulse Rate 90 12/03/24 16:07 Respiratory Rate 20 12/03/24 16:07 Blood Pressure 115/74 12/03/24 16:07 Pulse Oximetry 96 12/03/24 16:07 Oxygen Delivery Room Air 12/03/24 13:46 <Yu Stoner PA-C - Last Filed: 12/03/24 21:06> Vital Signs Temperature 99.3 F 12/03/24 13:46 Pulse Rate 91 12/03/24 13:46 Respiratory Rate 18 12/03/24 13:46 Pulse Oximetry 98 12/03/24 13:46 Oxygen Delivery Room Air 12/03/24 13:46 Temperature 99.9 F H 12/03/24 16:07 Pulse Rate 90 12/03/24 16:07 Respiratory Rate 20 12/03/24 16:07 Blood Pressure 115/74 12/03/24 16:07 Pulse Oximetry 96 12/03/24 16:07 Oxygen Delivery Room Air 12/03/24 13:46 <Crescencio Hauser MD - Last Filed: 12/03/24 19:07> MDM - Male Genitourinary MDM Narrative Medical decision making narrative: Patient presented to ED with concern for recurrent UTI. Began having dysuria yesterday. Also reports flank pain for the last couple of days, flu-like symptoms since yesterday. Vital signs are stable upon arrival. Patient is borderline febrile. Does report fevers yesterday. Has not taken anything for fever today. Cbc with blood cell count of 18.2. Neutrophil predominance. No bandemia. CMP with CKD. Appears consistent with previous records. UA does appear consistent with infection. 3+ leuk esterase, 51-100 WBC. Sent for culture. Viral swabs are negative. CT scan of abdomen /pelvis was obtained and without evidence of ureterolithiasis or other obstructive uropathy. Does show right renal lesion. Patient is aware of this. States he has had this investigated in the past. Was told it was a benign cyst. Patient became febrile in the ED. He is meeting sepsis criteria. Will be admitted for further evaluation. Discussed case with Augusta ANDREWS hospitalist, accepted patient for admission. Patient has had 2 positive urine cultures recently which have been resistant to cephalosporins and fluoroquinolones. Will start meropenem. Hospitalist recommended prophylactically starting oral vancomycin to prevent ongoing C diff as patient finished course of vanc only just a few days ago. Patient is in agreement with plan and need for admission. All questions answered. <Yu Stoner PA-C - Last Filed: 12/03/24 21:06> Medical Records Attestation: I reviewed the patient's medical records. <Yu Stoner PA-C - Last Filed: 12/03/24 21:06> Lab Data Attestation: I reviewed the patient's lab results. <Yu Stoner PA-C - Last Filed: 12/03/24 21:06> Result diagrams: 12/03/24 14:51 12/03/24 14:51 <Yu Stoner PA-C - Last Filed: 12/03/24 21:06> Labs: Lab Results 12/03/24 12/03/24 Range/Units 14:04 14:51 WBC 18.2 H (4.5-10.0) K/mm3 RBC 5.11 (4.6-6.20) M/mm3 Hgb 15.9 (14.0-18.0) g/dL Hct 49.0 (42.0-52.0) % MCV 95.9 (80-100) fl MCH 31.1 (26-34) pg MCHC 32.4 (32-36) g/dl RDW 15.6 H (11.5-14.5) % Plt Count 220 (150-375) k/mm3 MPV 10.6 H (7.4-10.4) fl Immature Gran % (Auto) 0.5 (0-0.5) % Neut % (Auto) 83.7 H (45.5-73.1) % Lymph % (Auto) 5.7 L (18.3-44.2) % [place] % (Auto) 9.0 H (2.6-8.5) % Eos % (Auto) 0.8 (0-4.4) % Baso % (Auto) 0.3 (0.2-1.2) % Lymph # (Auto) 1.03 (0.9-3.2) K/mm3 [place] # (Auto) 1.6 H (0.1-0.6) K/mm3 Eos # (Auto) 0.2 (0-0.3) K/mm3 Baso # (Auto) 0.1 (0.0-0.1) K/mm3 Abs Immat Gran (auto) 0.09 H (0.00-0.031) K/mm3 Absolute Neuts (auto) 15.2 H (1.3-6.7) K/mm3 Absolute Nucleated RBC 0.000 (0.0-0.012) K/mm3 Nucleated RBC % 0.0 (0.0-0.2) % Sodium 135 L (137-145) mmol/L Potassium 4.2 (3.4-5.0) mmol/L Chloride 97 L (98-107) mmol/L Carbon Dioxide 26 (22-30) mmol/L Anion Gap 12 (4-12) mmol/L BUN 20 (9-20) mg/dL Creatinine 1.60 H (0.7-1.3) mg/dL Estim Creat Clear Calc Not Reportable Estimated GFR 44 L (59 - ) Glucose 104 (65-110) mg/dL Calcium 9.3 (8.4-10.2) mg/dL Total Bilirubin 1.8 H (0.2-1.3) mg/dL AST 26 (17-59) U/L ALT 30 (6-50) U/L Alkaline Phosphatase 69 (38-126) U/L Total Protein 9.0 H (6.3-8.2) g/dL Albumin 4.6 (3.5-5.1) g/dL Urine Color Yellow (Yellow) Urine Appearance Clear (Clear) Urine pH 5.5 (5.0-9.0) Ur Specific [place] 1.008 (1.001-1.035) Urine Protein Negative (Negative) mg/dL Urine Glucose (UA) Negative (Negative) mg/dL Urine Ketones Negative (Negative) mg/dL Ur Blood (Man) Negative (Negative) Urine Nitrate Negative (Negative) Urine Bilirubin Negative (Negative) Urine Urobilinogen 0.2 (<2.0) mg/dL Leukocyte Esterase Rfl 3+ H (Negative) KATIUSKA/UL Urine RBC 0-2 (0-2) /hpf Urine WBC 51-100 H (0-3) /hpf Ur Squamous Epith Cells Occasional (Few) /hpf Urine Bacteria None seen /hpf Urine Casts 3-5 Influenza A (RT-PCR) Negative (Negative) Influenza B (RT-PCR) Negative (Negative) RSV (RT-PCR) Negative (Negative) SARS-CoV-2 RNA (RT-PCR) Negative (Negative) <Yu Stoner PA-C - Last Filed: 12/03/24 21:06> Lab Results 12/03/24 12/03/24 Range/Units 14:04 14:51 WBC 18.2 H (4.5-10.0) K/mm3 RBC 5.11 (4.6-6.20) M/mm3 Hgb 15.9 (14.0-18.0) g/dL Hct 49.0 (42.0-52.0) % MCV 95.9 (80-100) fl MCH 31.1 (26-34) pg MCHC 32.4 (32-36) g/dl RDW 15.6 H (11.5-14.5) % Plt Count 220 (150-375) k/mm3 MPV 10.6 H (7.4-10.4) fl Immature Gran % (Auto) 0.5 (0-0.5) % Neut % (Auto) 83.7 H (45.5-73.1) % Lymph % (Auto) 5.7 L (18.3-44.2) % [place] % (Auto) 9.0 H (2.6-8.5) % Eos % (Auto) 0.8 (0-4.4) % Baso % (Auto) 0.3 (0.2-1.2) % Lymph # (Auto) 1.03 (0.9-3.2) K/mm3 [place] # (Auto) 1.6 H (0.1-0.6) K/mm3 Eos # (Auto) 0.2 (0-0.3) K/mm3 Baso # (Auto) 0.1 (0.0-0.1) K/mm3 Abs Immat Gran (auto) 0.09 H (0.00-0.031) K/mm3 Absolute Neuts (auto) 15.2 H (1.3-6.7) K/mm3 Absolute Nucleated RBC 0.000 (0.0-0.012) K/mm3 Nucleated RBC % 0.0 (0.0-0.2) % Sodium 135 L (137-145) mmol/L Potassium 4.2 (3.4-5.0) mmol/L Chloride 97 L (98-107) mmol/L Carbon Dioxide 26 (22-30) mmol/L Anion Gap 12 (4-12) mmol/L BUN 20 (9-20) mg/dL Creatinine 1.60 H (0.7-1.3) mg/dL Estim Creat Clear Calc Not Reportable Estimated GFR 44 L (59 - ) Glucose 104 (65-110) mg/dL Calcium 9.3 (8.4-10.2) mg/dL Total Bilirubin 1.8 H (0.2-1.3) mg/dL AST 26 (17-59) U/L ALT 30 (6-50) U/L Alkaline Phosphatase 69 (38-126) U/L Total Protein 9.0 H (6.3-8.2) g/dL Albumin 4.6 (3.5-5.1) g/dL Urine Color Yellow (Yellow) Urine Appearance Clear (Clear) Urine pH 5.5 (5.0-9.0) Ur Specific [place] 1.008 (1.001-1.035) Urine Protein Negative (Negative) mg/dL Urine Glucose (UA) Negative (Negative) mg/dL Urine Ketones Negative (Negative) mg/dL Ur Blood (Man) Negative (Negative) Urine Nitrate Negative (Negative) Urine Bilirubin Negative (Negative) Urine Urobilinogen 0.2 (<2.0) mg/dL Leukocyte Esterase Rfl 3+ H (Negative) KATIUSKA/UL Urine RBC 0-2 (0-2) /hpf Urine WBC 51-100 H (0-3) /hpf Ur Squamous Epith Cells Occasional (Few) /hpf Urine Bacteria None seen /hpf Urine Casts 3-5 Influenza A (RT-PCR) Negative (Negative) Influenza B (RT-PCR) Negative (Negative) RSV (RT-PCR) Negative (Negative) SARS-CoV-2 RNA (RT-PCR) Negative (Negative) <Crescencio Hauser MD - Last Filed: 12/03/24 19:07> Imaging Data Attestation: I personally reviewed and interpreted this imaging study as follows: <Yu Stoner PA-C - Last Filed: 12/03/24 21:06> Radiologist's impression: ITS Impressions Abdomen/Pelvis CT 12/03/24 15:29 IMPRESSION: Hepatomegaly. 1.8 cm suspicious right upper pole lesion, apparent enhancing soft tissue components when compared with prior CT on 11/17/2024, in an area where a large simple cyst was previously noted in 2019, may represent residual change post cyst rupture or new lesion, recommend MRI of the kidneys without and with contrast for further characterization. No CT evidence of obstructive uropathy. Retroperitoneum lymphadenopathy. <Yu Stoner PA-C - Last Filed: 12/03/24 21:06> Discharge Plan Discharge Clinical Impression: Complicated UTI (urinary tract infection), Lesion of right [place] kidney Sepsis Qualifiers: Sepsis type: sepsis due to unspecified organism Sepsis acute organ dysfunction status: unspecified Qualified Code(s): A41.9 - Sepsis, unspecified organism CKD (chronic kidney disease) Qualifiers: Chronic kidney disease stage: stage 3 (moderate) Chronic kidney disease stage 3 subtype: unspecified whether 3a or 3b Qualified Code(s): N18.30 - Chronic kidney disease, stage 3 unspecified <Yu Stoner PA-C - Last Filed: 12/03/24 21:06> Patient Disposition: Still a Patient <Yu Stoner PA-C - Last Filed: 12/03/24 21:06> Condition: Stable <Yu Stoner PA-C - Last Filed: 12/03/24 21:06> Time of Disposition: 19:06 <Yu Stoner PA-C - Last Filed: 12/03/24 21:06> 19:06 <Crescencio Hauser MD - Last Filed: 12/03/24 19:07>
[2024-12-03 16:07] VITALS: BP 115/74; PULSE 90; RESP 20; TEMP 37.7; O2SAT 96
[2024-12-03] MEDS: ACETAMINOPHEN 500 MG TABLET 1000 MG PO (16:55)
[2024-12-03] MEDS: SODIUM CHLORIDE 0.9% IV 1,000 ML 999 ML IV CONT (17:18)
[2024-12-03] MEDS: MEROPENEM 1 GM/NS 100 ML 1 GM/100 ML BAG IVPB (18:07)
[2024-12-03] MEDS: VANCOMYCIN HCL 125 MG ORAL CAPSULE PO ×2 (18:11→23:53)
--- NOTE | 2024-12-03 18:35 | P.HP_ITS ---
H&P: HPI History of Present Illness Date/Time: 12/03/24 18:35 Chief Complaint: Flu symptoms. Narrative: Jaden is a very pleasant 64-year-old male with history of urinary tract infections including ESBL E coli UTIs, epididymitis, chronic kidney disease, kidney stones, Conn's syndrome, atrial fibrillation on chronic anticoagulation, hypertension, dyslipidemia, obstructive sleep apnea on CPAP, chronic cellulitis on low-dose prophylactic penicillin daily, and C diff diarrhea who presented to the emergency department via private vehicle with complaints of flu symptoms. He was treated for urinary tract infection earlier this month with Augmentin and unfortunately developed C diff diarrhea. He finished a course of p.o. vancomycin last and has been feeling good and has had no further episodes of d iarrhea. Yesterday morning he woke up ?feeling like I had the flu? with headache, fever, body aches, malaise, and poor appetite. Today he had some mild dysuria and ?right kidney pain? and he came in for evaluation. He denies sick contacts, sore throat, cough, abdominal pain, vomiting, diarrhea, hematuria, rashes, and wounds. In the ED: Vital signs on arrival include a temperature of 99.3?, blood pressure 155/74, pulse 91, respiratory 18, SpO2 98% on room air. Labs are significant for a WBC count of 18.2, sodium 135, chloride 97, creatinine 1.60, total bili 1.8, total protein 9.0. Urinalysis was positive for 3+ leukocyte esterase and 51 to 100 WBC. No bacteria and occasional squamous cells on microscopy. COVID, RSV, and influenza were negative. CT of the abdomen and pelvis showed hepatomegaly and a 1.8 cm suspicious right upper pole lesion. He was started on meropenem in the ED given history of ESBL E coli urinary tract infection and he is being admitted in this setting for further treatment and evaluation. Review of Systems Review of Systems: 12 systems were reviewed and are negativ e except for as per HPI. [facility] Past Medical History Medical History (Updated 12/03/24 @ 23:06 by Augusta Mosley PA-C) Cerebrovascular accident Clostridium difficile diarrhea Obstructive sleep apnea on CPAP Kidney stones Chronic kidney disease, stage 3 Colon polyps Chronic anticoagulation Atrial fibrillation Chronic cellulitis on suppressive low-dose penicillin Renal cyst Chronic low back pain Chronic pain Hyperlipidemia Lymphedema Mild reactive airways disease Umbilical hernia Chronic diastolic heart failure (Unknown) Obstructive sleep apnea treated with continuous positive airway pressure (CPAP) Vitamin D deficiency Hypogonadism in male Hearing loss Elevated homocysteine Conn's syndrome hyperaldosteronism Hyperlipidemia Benign essential hypertension Surgical History Surgical History (Updated 12/03/24 @ 22:52 by Augusta Mosley PA-C) History of colonoscopy with polypectomy History of incision and drainage perineal abscess History of arthroscopy of both knees History of right inguinal hernia repair open, with mesh History of laparoscopic cholecystectomy Family History Family History Father Esophageal cancer Family history of obesity Hypertension Mother Family history of malignant neoplasm of breast in first degree relative Sibling Colon cancer Social History Social History (Updated 12/03/24 @ 22:53 by Augusta Mosley PA-C) Social History: Surrogate medical decision maker: Natividad Jin, spouse. Code status: Full code. Smoking status: Never smoker Alcohol intake: current Drinks per week: 2 Alcohol use details: Occasional alcohol, rare in recent years Substance use: never Substance use type: does not use Do You Feel Safe in your Home?: Yes Lack of Transportation: No Lack of Food: Never True Current Housing: I Have Housing Concerned About Future Housing: No Difficulty Paying Gas/Electric Bills: No Difficulty Paying for Meds: No Currently Unemployed: No Education: High School Diploma/GED Difficulty w/ Childcare or Family Care: No Living arrangements: with family Additional living arrangements comments: Lives with his in [place]. Occupation/Education: other Additional occupation/education comments: Currently on disability after his stroke in August of 2018. Previously worked at [employer]. Spiritual care concerns: No Agree to blood products: Yes Meds Home Medications and Allergies Home Medications ?Medication ?Instructions ?Recorded ?Confirmed ?Type folic acid 1 mg tablet 1 mg PO DAILY #90 tabs 09/09/21 12/03/24 Rx rosuvastatin 5 mg tablet 5 mg PO DAILY #90 tabs 03/08/23 12/03/24 Rx acetaminophen 300 mg-codeine 30 mg 1 tablet PO Q6H PRN pain #30 tabs 06/08/24 12/03/24 Rx tablet spironolactone 25 mg tablet See Rx Instructions .Route .COMPLEX 07/10/24 12/03/24 History testosterone 4 pump topical DAILY #75 grams 10/02/24 12/03/24 Rx tramadol 50 mg tablet 50 mg PO Q6H #60 tabs 10/18/24 12/03/24 Rx Bystolic 10 mg tablet (nebivolol) 10 mg PO DAILY #90 tabs 10/30/24 12/03/24 Rx albuterol sulfate 90 mcg/actuation 1 puff inhalation Q4H PRN 10/30/24 12/03/24 Rx aerosol inhaler (Ventolin HFA) shortness of breath or wheezing #8.5 grams candesartan 32 mg tablet 32 mg PO DAILY #90 tabs 10/30/24 12/03/24 Rx colchicine 0.6 mg tablet 0.6 mg PO TID #15 tabs 10/30/24 12/03/24 Rx furosemide 80 mg tablet 80 mg PO BID #180 tabs 10/30/24 12/03/24 Rx hydralazine 100 mg tablet See Rx Instructions .Route 10/30/24 12/03/24 Rx .COMPLEX #270 tabs penicillin V potassium 500 mg 500 mg PO Q12H #180 tabs 10/30/24 12/03/24 Rx tablet potassium chloride 20 mEq See Rx Instructions .Route 10/30/24 12/03/24 Rx tablet,extended release .COMPLEX #270 tabs rivaroxaban 20 mg tablet (Xarelto) 20 mg PO DAILY #90 tabs 10/30/24 12/03/24 Rx vancomycin 250 mg capsule 250 mg PO Q6H 10 days #40 caps 11/17/24 12/03/24 Rx (Vancocin) Allergies Allergy/AdvReac Type Severity Reaction Status Date / Time latex Allergy Unknown Unknown Verified 12/03/24 13:17 adhesive AdvReac Mild Other Verified 12/03/24 13:17 Vital Signs Vital Signs - 24 hr 12/03/24 13:46 12/03/24 16:07 Temperature 99.3 F 99.9 F H Pulse Rate 91 90 Respiratory Rate 18 20 Blood Pressure 115/74 Pulse Oximetry 98 96 Oxygen Delivery Room Air Exam Narrative: General: Well-developed, nontoxic-appearing male sitting in a chair at the side of the bed. Weight: 118.2 kg. BMI: 39.6. HEENT: PERRL, EOMI. Sclera anicteric. Tacky mucous membranes. Neck: Supple. Respiratory: Lungs are clear to auscultation bilaterally. Cardiovascular: Irregularly irregular rate and rhythm with S1-S2. Gastrointestinal: Abdomen is soft, obese nontender, and nondistended with positive bowel sounds. No CVA tenderness. Skin: Warm and dry. Extremities: No cyanosis or clubbing. Mild lower extremity edema. Radial and pedal pulses intact. Neurological: Alert. Cranial nerves 2-12 are grossly intact. No gross focal deficits to casual conversation. Psychiatric: Pleasant and cooperative with normal mood and affect. Judgment and insight intact. H&P: Results Labs Labs: Short CBC 12/03/24 Range/Units 14:51 WBC 18.2 H (4.5-10.0) K/mm3 Hgb 15.9 (14.0-18.0) g/dL Hct 49.0 (42.0-52.0) % Plt Count 220 (150-375) k/mm3 BMP 12/03/24 14:51 Sodium 135 L Potassium 4.2 Chloride 97 L Carbon Dioxide 26 BUN 20 Creatinine 1.60 H Glucose 104 Calcium 9.3 Liver Function 12/03/24 Range/Units 14:51 Total Bilirubin 1.8 H (0.2-1.3) mg/dL AST 26 (17-59) U/L ALT 30 (6-50) U/L Alkaline Phosphatase 69 (38-126) U/L Albumin 4.6 (3.5-5.1) g/dL Urine 12/03/24 Range/Units 14:04 Urine Color Yellow (Yellow) Urine Appearance Clear (Clear) Urine pH 5.5 (5.0-9.0) Ur Specific [place] 1.008 (1.001-1.035) Urine Protein Negative (Negative) mg/dL Urine Glucose (UA) Negative (Negative) mg/dL Imaging Abdomen/Pelvis CT 12/03/24 15:29 IMPRESSION: Hepatomegaly. 1.8 cm suspicious right upper pole lesion, apparent enhancing soft tissue components when compared with prior CT on 11/17/2024, in an area where a large simple cyst was previously noted in 2019, may represent residual change post cyst rupture or new lesion, recommend MRI of the kidneys without and with contrast for further characterization. No CT evidence of obstructive uropathy. Retroperitoneum lymphadenopathy. Assessment and Plan Assessment and plan (1) Urinary tract infection: Code(s): N39.0 - Urinary tract infection, site not specified Status: Acute (2) Lesion of right [place] kidney: Code(s): N28.9 - Disorder of kidney and ureter, unspecified Status: Acute (3) Hypertension: Onset Date: Unknown Qualifiers: Hypertension type: essential hypertension Qualified Code(s): I10 - Essential (primary) hypertension Code(s): I10 - Essential (primary) hypertension Status: Acute (4) Chronic diastolic heart failure: Onset Date: Unknown Code(s): I50.32 - Chronic diastolic (congestive) heart failure Status: Acute (5) Atrial fibrillation: Code(s): I48.91 - Unspecified atrial fibrillation Status: Acute (6) Chronic anticoagulation: Code(s): 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 since yesterday as detailed in HPI. Labs, imaging, EKG, and all reports were personally reviewed. His respiratory panel was negative. Today he seems to be having more issues with dysuria and right mid to low back pain and his urinalysis was positive for 3+ leukocyte esterase and 51 to 100 WBC although no bacteria were seen on microscopy. He does have a history of recurrent urinary tract infections and reports that his symptoms today are similar. Given his fever, elevated WBC count, history of ESBL E coli urinary tract infections, he has been started on meropenem pending urine cultures. CT of the abdomen and pelvis did not show any acute findings but did note a lesion in the right upper pole of the kidney which may be related to a prior cyst however radiologist recommends MRI. Due to recurrent issues, he was referred to Urology by Dr. House and I will ask them to see him in consultation while in the hospital. Unfortunately the patient recently had C diff diarrhea attributed to Augmentin and with a steep rise in his WBC count, there concerns that he may have a recurrent infection as he is only stop taking the vancomycin within the last 3 or 4 days. He is not having any diarrhea however I think it would be prudent to go ahead and start p.o. vancomycin and follow him clinically. Continue to hold prophylactic, low-dose penicillin which he takes for chronic cellulitis. He looks a bit dry on exam and received a L of normal saline in the ED. We will hold further IV fluid given history of diastolic dysfunction. He sounds to be in atrial fibrillation and is rate controlled. Continue rivaroxaban for stroke prophylaxis. Blood pressures are well controlled and his potassium is within normal limits. CPAP will be provided for the patient to use while hospitalized. His home medications will be reviewed and resumed as appropriate. Findings and treatment plan were discussed with the patient. Questions were solicited and answered to satisfaction. The patient's medical management will be taken over by the hospitalist team in a.m. Quality VTE Prophylaxis VTE prophylaxis: pharmacologic ordered (on rivaroxaban) The patient has been admitted under observation status. Hospitalist MIPS Advance Care Plan I have confirmed that the patient's Advanced Care Plan is present, code status i s documented, or surrogate decision maker is listed in patient medical record.: Yes Medication Reconciliation I have utilized all available resources to obtain, update and review the patients current medications (includes all prescriptions, OTC, herbals, cannabis, and nutritional supplements).: Yes
[2024-12-03 20:00] VITALS: BMI 40.8
--- NOTE | 2024-12-03 20:07 | ADMGEN ---
This patient, Becky Jin, was admitted to [facility] Surg Room 329-01. Patient/family oriented to hospital policies and general routines including ID bracelet, bed and alarms, visiting hours, pain management, procedures, bathroom and other care routines, personal items, smoking policy, room service/diet, and visiting hours. Information on how to activate the Rapid Response Team has been discussed. Patient/Family are encouraged to report perceived risks to care and to ask questions if they do not understand what they are told or what they should do.
[2024-12-03 22:00] VITALS: BP 118/72; PULSE 80; RESP 18; TEMP 36.6; O2SAT 97
[2024-12-03 23:50] VITALS: PULSE 65; O2SAT 96
[2024-12-03] MEDS: ACETAMINOPHEN 325 MG TABLET 650 MG PO (23:52)
[2024-12-04] MEDS: WATER FOR IRRIGATION, STERILE 1,000 ML BOTTLE 1000 ML (00:33)
[2024-12-04] MEDS: MEROPENEM 1 GM/NS 100 ML 1 GM/100 ML BAG IVPB ×3 (02:23→17:37)
[2024-12-04 03:30] VITALS: PULSE 61; O2SAT 98
[2024-12-04] MEDS: VANCOMYCIN HCL 125 MG ORAL CAPSULE PO ×4 (05:11→23:13)
[2024-12-04 06:00] VITALS: BP 117/59; PULSE 91; RESP 20; TEMP 36.7; O2SAT 98
[2024-12-04 07:10] LABS: Hematocrit 46.3 % (42.0-52.0); Hemoglobin 15.1 g/dL (14.0-18.0); Mean Corpuscular HGB Conc 32.6 g/dl (32-36); Mean Corpuscular Hemoglobin 31.5 pg (26-34); Mean Corpuscular Volume 96.7 fl (80-100); Mean Platelet Volume 10.7 fl (7.4-10.4); Platelet Count Result 206 k/mm3 (150-375); Red Blood Count 4.79 M/mm3 (4.6-6.20); Red Cell Distribution Width 15.7 % (11.5-14.5); White Blood Count 18.6 K/mm3 (4.5-10.0)
[2024-12-04 07:23] LABS: Anion Gap 12 mmol/L (4-12); Blood Urea Nitrogen 21 mg/dL (9-20); Calcium 8.9 mg/dL (8.4-10.2); Carbon Dioxide 23 mmol/L (22-30); Chloride 101 mmol/L (98-107); Estimated CRCL calculation 52 ml/min; Estimated Glomerular Filt Rate 42; Glucose 107 mg/dL (65-110); Magnesium 2.1 mg/dL (1.6-2.3); Potassium 3.8 mmol/L (3.4-5.0); Sodium 136 mmol/L (137-145)
--- NOTE | 2024-12-04 08:16 | PM.IMPN ---
Progress Note: A&P Assessment and Plan (1) Urinary tract infection: Code(s): N39.0 - Urinary tract infection, site not specified Status: Acute Assessment and Plan: - UA: 3+ Leukocyte esterase, 51-100 WBC, no bacteria - UC obtained on 12/03, pending - previous micro reviewed, Meropenem susceptible - started on Meropenem 1gm q8 hr - Recurrent, Urology consulted - Per Urology: Start HS Tamsulosin, check PVR bladder scan - No plan for inpt urologic surgical intervention (2) Lesion of right [place] kidney: Code(s): N28.9 - Disorder of kidney and ureter, unspecified Status: Acute Assessment and Plan: - Abd/Pelvis CT: 1.8 cm suspicious right upper pole lesion, apparent enhancing soft tissue components when compared with prior CT on 11/17/2024, in an area where a large simple cyst was previously noted in 2019, may represent residual change post cyst rupture or new lesion - Abdomen MRI: 1.4 cm Bosniak type III cystic lesion of right kidney. - Urology Consulted, pending. Will appreciate recommendations (3) Diarrhea: Code(s): R19.7 - Diarrhea, unspecified Status: Acute Assessment and Plan: - H/o Cdiff. Recently treated with PO Vanc, finished course on 11/30 - Started experiencing diarrhea on 12/04 - Will test Toxigenic C diff stool sample - Placed back on PO Vanc (4) Hypertension: Onset Date: Unknown Qualifiers: Hypertension type: essential hypertension Qualified Code(s): I10 - Essential (primary) hypertension Code(s): I10 - Essential (primary) hypertension Status: Acute Assessment and Plan: - Chronic, stable - 92/60 - Hold hydralazine (5) Chronic diastolic heart failure: Onset Date: Unknown Code(s): I50.32 - Chronic diastolic (congestive) heart failure Status: Acute Assessment and Plan: - Continue Furosemide 40mg - Gentle hydration at 75 mL/hr - Monitor labs and vitals closely (6) Atrial fibrillation: Code(s): I48.91 - Unspecified atrial fibrillation Status: Acute Assessment and Plan: - Rate controlled - Rivaroxaban for stroke prophylaxis (7) Chronic anticoagulation: 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(s): 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 Status: Acute Assessment and Plan: - Continue Rivaroxaban (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 Status: Acute Assessment and Plan: - Continue Spironolactone 25mg (9) Obstructive sleep apnea treated with continuous positive airway pressure (CPAP): Code(s): G47.33 - Obstructive sleep apnea (adult) (pediatric); Z99.89 - Dependence on other enabling machines and devices Status: Acute Assessment and Plan: - Will provide CPAP Time Spent With Patient Time: Subjective Date/time seen: 12/04/24 08:16 Interval history: 64-year-old male with history of urinary tract infections including ESBL E coli UTIs, epididymitis, chronic kidney disease, Conn's syndrome, atrial fibrillation on chronic anticoagulation, hypertension, dyslipidemia, chronic cellulitis on low-dose prophylactic penicillin daily, who presented to the emergency department via private vehicle with complaints of flu symptoms. 12/04/2024 Patient sitting comfortably in bed, complaining of some slight nausea but denying any chest pain, abdominal pain, flank pain, or shortness of breath at this time. Pt is on oral Vancomycin, along with IV meropenem. Urology consulted, will appreciate recommendations and maintain antibiotics. Review of Systems Review of Systems: 12 systems were reviewed and are negative except for as per HPI. Exam Narrative: General: Well-developed, nontoxic-appearing male sitting in a chair at the side of the bed. Weight: 118.2 kg. BMI: 39.6. HEENT: PERRL, EOMI. Sclera anicteric. Tacky mucous membranes. Neck: Supple. Respiratory: Lungs are clear to auscultation bilaterally. Cardiovascular: Irregularly irregular rate and rhythm with S1-S2. Gastrointestinal: Abdomen is soft, obese nontender, and nondistended with positive bowel sounds. No CVA tenderness. Skin: Warm and dry. Extremities: No cyanosis or clubbing. Mild lower extremity edema. Radial and pedal pulses intact. Neurological: Alert. Cranial nerves 2-12 are grossly intact. No gross focal deficits to casual conversation. Psychiatric: Pleasant and cooperative with normal mood and affect. Judgment and insight intact. Objective Data Vital Signs Vital Signs: Vital Signs - 24 hr 12/03/24 13:46 12/03/24 16:07 12/03/24 20:52 Temperature 99.3 F 99.9 F H Pulse Rate 91 90 Respiratory Rate 18 20 Blood Pressure 115/74 Pulse Oximetry 98 96 Oxygen Delivery Room Air Room Air 12/03/24 22:00 12/03/24 23:50 12/04/24 03:30 Temperature 97.9 F Pulse Rate 80 65 61 Respiratory Rate 18 Blood Pressure 118/72 Pulse Oximetry 97 96 98 Oxygen Delivery CPAP CPAP 12/04/24 06:00 Temperature 98.0 F Pulse Rate 91 Respiratory Rate 20 Blood Pressure 117/59 L Pulse Oximetry 98 Oxygen Delivery Intake/Output Intake/Output: Intake & Output 12/01/24 12/02/24 12/03/24 12/04/24 23:59 23:59 23:59 23:59 Intake Total 1100 500 Balance 1100 500 Meds/Results Medications: Active Medications Generic Name Dose Route Start Last Admin Trade Name Freq PRN Reason Stop Dose Admin Acetaminophen 650 mg 12/03/24 17:15 12/03/24 23:52 Acetaminophen 325 Mg Tablet PO 650 mg Q4H PRN Administration Mild Pain (1-3) or Fever Albuterol 1 puff 12/03/24 23:08 Albuterol Sulfate (*Sp) Aerosol 1 Puff INHALATION Q4HRT PRN shortness of breath or wheezing Candesartan Cilexetil 32 mg 12/04/24 09:00 Candesartan Cilexetil 16 Mg Tablet PO DAILY SUNNI Dextrose 12.5 gm 12/03/24 17:22 Dextrose 50% 25 Gm/50 Ml Syringe IV PUSH PRN PRN Hypoglycemia Protocol Furosemide 80 mg 12/04/24 09:00 Furosemide 80 Mg Tablet PO BID SUNNI Glucagon 1 mg 12/03/24 17:22 Glucagon For Inj 1 Mg Vial IM PRN PRN Hypoglycemia Protocol Glucose 15 gm 12/03/24 17:22 Glucose Oral Gel 15 Gm Of Glucse In 37.5 Gm Tube PO PRN PRN Hypoglycemia Protocol Hydralazine HCl 100 mg 12/04/24 09:00 Hydralazine Hcl 50 Mg Tablet BY MOUTH TID SUNNI Meropenem 1 gm in 100 mls @ 200 mls/hr 12/04/24 02:00 12/04/24 02:53 IVPB Infused Q8H SUNNI Infusion Dextrose 1,000 mls @ 100 mls/hr 12/03/24 17:22 Dextrose 5% 1,000 Ml IVPB PRN PRN Hypoglycemia Protocol Nebivolol 10 mg 12/04/24 09:00 Nebivolol Hcl 5 Mg Tablet PO DAILY [facility] Ondansetron HCl 4 mg 12/03/24 17:15 Ondansetron Inj 4 Mg/2 Ml Vial IV PUSH Q4H PRN Nausea Potassium Chloride 60 meq 12/04/24 09:00 Potassium Chloride 20 Meq Er Tablet BY MOUTH DAILY [facility] Rivaroxaban 20 mg 12/04/24 09:00 Rivaroxaban 20 Mg Tablet PO DAILY [facility] Spironolactone 50 mg 12/04/24 09:00 Spironolactone 25 Mg Tablet BY MOUTH DAILY [facility] Vancomycin HCl 125 mg 12/03/24 18:00 12/04/24 05:11 Vancomycin Hcl 125 Mg Oral Capsule PO 125 mg Q6HR SUNNI Administration Radiology Results: ITS Impressions Abdomen/Pelvis CT 12/03/24 15:29 IMPRESSION: Hepatomegaly. 1.8 cm suspicious right upper pole lesion, apparent enhancing soft tissue components when compared with prior CT on 11/17/2024, in an area where a large simple cyst was previously noted in 2019, may represent residual change post cyst rupture or new lesion, recommend MRI of the kidneys without and with contrast for further characterization. No CT evidence of obstructive uropathy. Retroperitoneum lymphadenopathy. Labs Labs: Laboratory Results - last 24 hr 12/03/24 12/03/24 12/04/24 14:04 14:51 06:56 WBC 18.2 H 18.6 H RBC 5.11 4.79 Hgb 15.9 15.1 Hct 49.0 46.3 MCV 95.9 96.7 MCH 31.1 31.5 MCHC 32.4 32.6 RDW 15.6 H 15.7 H Plt Count 220 206 MPV 10.6 H 10.7 H Immature Gran % (Auto) 0.5 Neut % (Auto) 83.7 H Lymph % (Auto) 5.7 L [place] % (Auto) 9.0 H Eos % (Auto) 0.8 Baso % (Auto) 0.3 Lymph # (Auto) 1.03 [place] # (Auto) 1.6 H Eos # (Auto) 0.2 Baso # (Auto) 0.1 Abs Immat Gran (auto) 0.09 H Absolute Neuts (auto) 15.2 H Absolute Nucleated RBC 0.000 Nucleated RBC % 0.0 Sodium 135 L 136 L Potassium 4.2 3.8 Chloride 97 L 101 Carbon Dioxide 26 23 Anion Gap 12 12 BUN 20 21 H Creatinine 1.60 H 1.64 H Estim Creat Clear Calc Not Reportable 52 Estimated GFR 44 L 42 L Glucose 104 107 Calcium 9.3 8.9 Magnesium 2.1 Total Bilirubin 1.8 H AST 26 ALT 30 Alkaline Phosphatase 69 Total Protein 9.0 H Albumin 4.6 Urine Color Yellow Urine Appearance Clear Urine pH 5.5 Ur Specific [place] 1.008 Urine Protein Negative Urine Glucose (UA) Negative Urine Ketones Negative Ur Blood (Man) Negative Urine Nitrate Negative Urine Bilirubin Negative Urine Urobilinogen 0.2 Leukocyte Esterase Rfl 3+ H Urine RBC 0-2 Urine WBC 51-100 H Ur Squamous Epith Cells Occasional Urine Bacteria None seen Urine Casts 3-5 Influenza A (RT-PCR) Negative Influenza B (RT-PCR) Negative RSV (RT-PCR) Negative SARS-CoV-2 RNA (RT-PCR) Negative Quality VTE Prophylaxis VTE prophylaxis: pharmacologic ordered (on rivaroxaban)
[2024-12-04] MEDS: CANDESARTAN CILEXETIL 16 MG TABLET 32 MG PO (09:32)
[2024-12-04] MEDS: RIVAROXABAN 20 MG TABLET PO (09:32)
[2024-12-04] MEDS: POTASSIUM CHLORIDE 20 MEQ ER TABLET 60 MEQ BY MOUTH (09:32)
[2024-12-04] MEDS: SPIRONOLACTONE 25 MG TABLET 50 MG BY MOUTH (09:32)
[2024-12-04] MEDS: ROSUVASTATIN 5 MG TABLET PO (09:32)
[2024-12-04] MEDS: NEBIVOLOL HCL 5 MG TABLET 10 MG PO (09:32)
[2024-12-04] MEDS: FOLIC ACID 1 MG TABLET PO (09:32)
[2024-12-04] MEDS: hydrALAZINE HCL 50 MG TABLET 100 MG BY MOUTH ×2 (09:32→11:59)
[2024-12-04] MEDS: FUROSEMIDE 80 MG TABLET PO (09:32)
[2024-12-04] MEDS: ONDANSETRON INJ 4 MG/2 ML VIAL IV PUSH (12:01)
[2024-12-04 14:00] VITALS: BP 92/60; PULSE 82; RESP 20; TEMP 37.1; O2SAT 97
--- NOTE | 2024-12-04 14:07 | WPDURCON ---
Assessment and Plan Assessment and plan (1) Renal cyst: Code(s): N28.1 - Cyst of kidney, acquired Status: Acute Assessment and Plan: - Chronic, stable - Decreased in size on MRI imaging compared to 2018 & 2019 - Retroperitoneal lymphadenopathy also present to at least 2019 (2) Complicated UTI (urinary tract infection): Code(s): N39.0 - Urinary tract infection, site not specified Status: Acute Assessment and Plan: - Treated for E.Coli UTI 10/2024, C.Diff 11/2024 - 12/03/24 Urinalysis with possible UTI - Blood and urine cultures pending on IV meropenem (3) Chronic kidney disease, stage 3: Code(s): N18.30 - Chronic kidney disease, stage 3 unspecified Status: Acute Assessment and Plan: - Chronic, stable - Cr 1.6, baseline renal function (4) BPH (benign prostatic hyperplasia): Code(s): N40.0 - Benign prostatic hyperplasia without lower urinary tract symptoms Status: Acute Assessment and Plan: - 06/2024 PSA 3.2, stable - Prostatomegaly noted on CT, not currently on any medications at home (5) Renal calculus, bilateral: Code(s): N20.0 - Calculus of kidney Status: Acute Assessment and Plan: - Small, bilateral nonobstructing renal stones noted on CT imaging Plan - Agree with culture-directed antibiotics, possibly developed another UTI due to C.diff diarrheal illness - Doubt 1.4 cm right renal cyst or small nonobstructing renal stones are source of flank pain - Will start HS tamsulosin. Check PVR bladder scan, r/o urinary retention as source of UTI. Follow I&Os. - Possible he may have developed a urethral stricture following traumatic Salgado removal a few years ago - No plan for inpatient urologic surgical intervention - Patient has outpatient urology appointment with Dr. Solis 12/29/24 @2PM - Anticipate need for outpatient cystoscopy for urethral, bladder wall & prostate evaluation after all infections have cleared Urology Consult Note HPI Date Seen: 12/04/24 Requesting Physician: AUSTEN StephensonC Primary Care Provider: Cordell House MD Consult Narrative Reason for consult: UTI, right renal lesion Narrative: Becky Jin is a pleasant 64 year old male admitted 12/03/24 with UTI symptoms: bilateral flank pain, body aches, headache, fever. Urology was consulted for evaluation of 1.8cm right renal lesion identified on CT imaging and possible UTI. Patient has a urological history significant for E.Coli UTI (10/2024, 01/2022), renal stones, orchalgia (2019), enlarged prostate, right renal cyst. He developed C.diff following UTI treatment last month. Other medical history significant for CVA, AFIB on Xarelto, CKD III, obesity. Nonsmoker. Last urology office visit was in 2019, lost to follow-up. 06/2024 PSA 3.2. Patient comfortable on exam. No distress. No current complaints. In discussion with , patient reportedly pulled out his catheter with balloon intact a few years following CVA resulting in gross hematuria. Patient has no recollection of this. He denies ever having a cystoscopy. PERTINENT LABS: 12/04/24 - WBC 18.6, HGB 15.1, Cr 1.6 12/03/24 UA - 3+ LE, 51-100 WBC; Blood and urine cultures pending on IV meropenem PERTINENT IMAGIN12/04/24 MRI Abdomen WO/W Contrast - 1.4cm right renal cyst, decrease in size from 4.2cm in 2018 12/03/24 CT AP WO Contrast - 1.8cm right upper pole lesion, small bilateral nonobstructing renal stones, mild bladder wall thickening prostatomegaly, retroperitoneum lymphadenopathy Review of Systems Constitutional: Constitutional: Reports fatigue Respiratory: Respiratory: Denies dyspnea Gastrointestinal: Gastrointestinal: Denies constipation and Denies diarrhea Genitourinary: Genitourinary: Denies hematuria and Reports flank pain Musculoskeletal: Musculoskeletal: Reports myalgias PMF Past Medical History Medical History (Updated 12/04/24 @ 14:32 by Alexandra Slater, KATHERYN) Cerebrovascular accident Clostridium difficile diarrhea Obstructive sleep apnea on CPAP Kidney stones Chronic kidney disease, stage 3 Colon polyps Chronic anticoagulation Atrial fibrillation Chronic cellulitis on suppressive low-dose penicillin Renal cyst Chronic low back pain Chronic pain Hyperlipidemia Lymphedema Mild reactive airways disease Umbilical hernia Chronic diastolic heart failure (Unknown) Obstructive sleep apnea treated with continuous positive airway pressure (CPAP) Vitamin D deficiency Hypogonadism in male Hearing loss Elevated homocysteine Conn's syndrome hyperaldosteronism Hyperlipidemia Benign essential hypertension Surgical History Surgical History (Updated 12/03/24 @ 22:52 by Augusta Mosley PA-C) History of colonoscopy with polypectomy History of incision and drainage perineal abscess History of arthroscopy of both knees History of right inguinal hernia repair open, with mesh History of laparoscopic cholecystectomy Family History Family History Father Esophageal cancer Family history of obesity Hypertension Mother Family history of malignant neoplasm of breast in first degree relative Sibling Colon cancer Social History Social History (Updated 12/03/24 @ 22:53 by Augusta Mosley PA-C) Social History: Surrogate medical decision maker: Natividad Jin, spouse. Code status: Full code. Smoking status: Never smoker Alcohol intake: current Drinks per week: 2 Alcohol use details: Occasional alcohol, rare in recent years Substance use: never Substance use type: does not use Do You Feel Safe in your Home?: Yes Lack of Transportation: No Lack of Food: Never True Current Housing: I Have Housing Concerned About Future Housing: No Difficulty Paying Gas/Electric Bills: No Difficulty Paying for Meds: No Currently Unemployed: No Education: High School Diploma/GED Difficulty w/ Childcare or Family Care: No Living arrangements: with family Additional living arrangements comments: Lives with his in [place]. Occupation/Education: other Additional occupation/education comments: Currently on disability after his stroke in August of 2018. Previously worked at [employer]. Spiritual care concerns: No Agree to blood products: Yes Meds Home Medications and Allergies Home Medications ?Medication ?Instructions ?Recorded ?Confirmed ?Type folic acid 1 mg tablet 1 mg PO DAILY #90 tabs 09/09/21 12/03/24 Rx rosuvastatin 5 mg tablet 5 mg PO DAILY #90 tabs 03/08/23 12/03/24 Rx acetaminophen 300 mg-codeine 30 mg 1 tablet PO Q6H PRN pain #30 tabs 06/08/24 12/03/24 Rx tablet spironolactone 25 mg tablet See Rx Instructions .Route .COMPLEX 07/10/24 12/03/24 History testosterone 4 pump topical DAILY #75 grams 10/02/24 12/03/24 Rx tramadol 50 mg tablet 50 mg PO Q6H #60 tabs 10/18/24 12/03/24 Rx Bystolic 10 mg tablet (nebivolol) 10 mg PO DAILY #90 tabs 10/30/24 12/03/24 Rx albuterol sulfate 90 mcg/actuation 1 puff inhalation Q4H PRN 10/30/24 12/03/24 Rx aerosol inhaler (Ventolin HFA) shortness of breath or wheezing #8.5 grams candesartan 32 mg tablet 32 mg PO DAILY #90 tabs 10/30/24 12/03/24 Rx colchicine 0.6 mg tablet 0.6 mg PO TID #15 tabs 10/30/24 12/03/24 Rx furosemide 80 mg tablet 80 mg PO BID #180 tabs 10/30/24 12/03/24 Rx hydralazine 100 mg tablet See Rx Instructions .Route 10/30/24 12/03/24 Rx .COMPLEX #270 tabs penicillin V potassium 500 mg 500 mg PO Q12H #180 tabs 10/30/24 12/03/24 Rx tablet potassium chloride 20 mEq See Rx Instructions .Route 10/30/24 12/03/24 Rx tablet,extended release .COMPLEX #270 tabs rivaroxaban 20 mg tablet (Xarelto) 20 mg PO DAILY #90 tabs 10/30/24 12/03/24 Rx vancomycin 250 mg capsule 250 mg PO Q6H 10 days #40 caps 11/17/24 12/03/24 Rx (Vancocin) Allergies Allergy/AdvReac Type Severity Reaction Status Date / Time latex Allergy Unknown Unknown Verified 12/03/24 13:17 adhesive AdvReac Mild Other Verified 12/03/24 13:17 Vital Signs Vital Signs - 24 hr 12/03/24 16:07 12/03/24 20:52 12/03/24 22:00 Temperature 99.9 F H 97.9 F Pulse Rate 90 80 Respiratory Rate 20 18 Blood Pressure 115/74 118/72 Pulse Oximetry 96 97 Oxygen Delivery Room Air 12/03/24 23:50 12/04/24 03:30 12/04/24 06:00 Temperature 98.0 F Pulse Rate 65 61 91 Respiratory Rate 20 Blood Pressure 117/59 L Pulse Oximetry 96 98 98 Oxygen Delivery CPAP CPAP 12/04/24 09:30 12/04/24 14:00 Temperature 98.7 F Pulse Rate 82 Respiratory Rate 20 Blood Pressure 92/60 L Pulse Oximetry 97 Oxygen Delivery Room Air Exam Const: General: comfortable and no acute distress Eyes: General: appearance normal, both eyes and all related structures Resp: Effort & Inspection: normal respiratory effort : Other: Flank tenderness Skin: General skin exam: normal color Neuro: Speech: normal speech Psych: Speech and movement: Normal speech and movement present Results Labs 12/04/24 06:56 12/04/24 06:56 Labs: Short CBC 12/03/24 12/04/24 Range/Units 14:51 06:56 WBC 18.2 H 18.6 H (4.5-10.0) K/mm3 Hgb 15.9 15.1 (14.0-18.0) g/dL Hct 49.0 46.3 (42.0-52.0) % Plt Count 220 206 (150-375) k/mm3 BMP 12/03/24 12/04/24 14:51 06:56 Sodium 135 L 136 L Potassium 4.2 3.8 Chloride 97 L 101 Carbon Dioxide 26 23 BUN 20 21 H Creatinine 1.60 H 1.64 H Glucose 104 107 Calcium 9.3 8.9 Liver Function 12/03/24 Range/Units 14:51 Total Bilirubin 1.8 H (0.2-1.3) mg/dL AST 26 (17-59) U/L ALT 30 (6-50) U/L Alkaline Phosphatase 69 (38-126) U/L Albumin 4.6 (3.5-5.1) g/dL Urine 12/03/24 Range/Units 14:04 Urine Color Yellow (Yellow) Urine Appearance Clear (Clear) Urine pH 5.5 (5.0-9.0) Ur Specific [place] 1.008 (1.001-1.035) Urine Protein Negative (Negative) mg/dL Urine Glucose (UA) Negative (Negative) mg/dL
[2024-12-04] MEDS: LACTATED RINGERS 1,000 ML 75 ML IV CONT (14:21)
[2024-12-04] MEDS: ACETAMINOPHEN 325 MG TABLET 650 MG PO ×2 (14:25→21:54)
--- NOTE | 2024-12-04 15:10 | PC.NURSE ---
Patient's post void residual bladder scan was 2 mL.
[2024-12-04 20:55] VITALS: O2SAT 98
[2024-12-04] MEDS: TAMSULOSIN HCL 0.4 MG CAPSULE PO (20:55)
[2024-12-04 22:00] VITALS: BP 98/75; PULSE 66; RESP 20; TEMP 36.2; O2SAT 99
[2024-12-04 22:59] LABS: Toxigenic C. Diff NEGATIVE (NEGATIVE)
[2024-12-04 23:30] VITALS: O2SAT 98
[2024-12-05] MEDS: MEROPENEM 1 GM/NS 100 ML 1 GM/100 ML BAG IVPB (01:31)
[2024-12-05] MEDS: ACETAMINOPHEN 325 MG TABLET 650 MG PO (04:54)
[2024-12-05] MEDS: VANCOMYCIN HCL 125 MG ORAL CAPSULE PO (05:00)
[2024-12-05 05:43] VITALS: BP 121/73; PULSE 82; RESP 24; TEMP 36.4; O2SAT 97
[2024-12-05 08:00] VITALS: PULSE 82; RESP 24; O2SAT 97
[2024-12-05 08:12] LABS: Basophils Absolute Auto 0.1 K/mm3 (0.0-0.1); Basophils Percent Auto 0.5 % (0.2-1.2); Eosinophils Absolute Auto 0.2 K/mm3 (0-0.3); Hematocrit 46.7 % (42.0-52.0); Hemoglobin 14.8 g/dL (14.0-18.0); Immature Granulocyte Absolute 0.05 K/mm3 (0.00-0.031); Immature Granulocyte Percent A 0.5 % (0-0.5); Lymphocytes Absolute Auto 0.66 K/mm3 (0.9-3.2); Lymphocytes Percent Auto 6.2 % (18.3-44.2); Mean Corpuscular HGB Conc 31.7 g/dl (32-36); Mean Corpuscular Hemoglobin 31.2 pg (26-34); Mean Corpuscular Volume 98.5 fl (80-100); Mean Platelet Volume 10.8 fl (7.4-10.4); Monocytes Percent Auto 9.6 % (2.6-8.5); Neutrophils Absolute Auto 8.7 K/mm3 (1.3-6.7); Neutrophils Percent Auto 81.2 % (45.5-73.1); Platelet Count Result 190 k/mm3 (150-375); Red Blood Count 4.74 M/mm3 (4.6-6.20); Red Cell Distribution Width 15.7 % (11.5-14.5); White Blood Count 10.7 K/mm3 (4.5-10.0)
[2024-12-05 08:18] LABS: Alanine Aminotransferase 31 U/L (6-50); Albumin Level 3.9 g/dL (3.5-5.1); Alkaline Phosphatase 66 U/L (38-126); Anion Gap 8 mmol/L (4-12); Aspartate Amino Transferase 29 U/L (17-59); Bilirubin,Total 0.7 mg/dL (0.2-1.3); Blood Urea Nitrogen 24 mg/dL (9-20); Calcium 8.9 mg/dL (8.4-10.2); Carbon Dioxide 27 mmol/L (22-30); Chloride 103 mmol/L (98-107); Estimated CRCL calculation 47 ml/min; Estimated Glomerular Filt Rate 38; Glucose 106 mg/dL (65-110); Potassium 4.2 mmol/L (3.4-5.0); Sodium 138 mmol/L (137-145)
--- NOTE | 2024-12-05 08:18 | P.CDI_ITS ---
CDI Query Clarification Request Please clarify if sepsis has been ruled in or ruled out The medical chart reflects the following: ER documented sepsis and meeting sepsis criteria but is not documented in progress notes from hospitalist. Sepsis Qualifiers: Sepsis type: sepsis due to unspecified organism Sepsis acute organ dysfunction status: unspecified Qualified Code(s): A41.9 - Sepsis, unspecified organism Patient presented to ED with concern for recurrent UTI. Began having dysuria yesterday. Also reports flank pain for the last couple of days, flu-like symptoms since yesterday. Vital signs are stable upon arrival. Patient is borderline febrile. Does report fevers yesterday. Has not taken anything for fever today. Cbc with blood cell count of 18.2. Neutrophil predominance. No bandemia. CMP with CKD. Appears consistent with previous records. UA does appear consistent with infection. 3+ leuk esterase, 51-100 WBC. Sent for culture. Viral swabs are negative. CT scan of abdomen /pelvis was obtained and without evidence of ureterolithiasis or other obstructive uropathy. Does show right renal lesion. Patient is aware of this. States he has had this investi gated in the past. Was told it was a benign cyst. Patient became febrile in the ED. He is meeting sepsis criteria. Will be admitted for further evaluation. Discussed case with Augusta ANDREWS hospitalist, accepted patient for admission. Patient has had 2 positive urine cultures recently which have been resistant to cephalosporins and fluoroquinolones. Will start meropenem. Hospitalist recommended prophylactically starting oral vancomycin to prevent ongoing C diff as patient finished course of vanc only just a few days ago. Patient is in agreement with plan and need for admission. WBC 12/03: 18.2, 12/04: 18.6 Treatment: IV abx <Alexandra Anaya RN - Last Filed: 12/05/24 08:25> Clarified Diagnosis Clarified Diagnosis: Sepsis ruled in <Gagandeep Garcia PA-C - Last Filed: 12/05/24 13:21>
[2024-12-05] MEDS: SPIRONOLACTONE 25 MG TABLET 50 MG BY MOUTH (09:12)
[2024-12-05] MEDS: ROSUVASTATIN 5 MG TABLET PO (09:12)
[2024-12-05] MEDS: CANDESARTAN CILEXETIL 16 MG TABLET 32 MG PO (09:13)
[2024-12-05] MEDS: POTASSIUM CHLORIDE 20 MEQ ER TABLET 60 MEQ BY MOUTH (09:13)
[2024-12-05] MEDS: FUROSEMIDE 80 MG TABLET PO (09:13)
[2024-12-05] MEDS: hydrALAZINE HCL 50 MG TABLET 100 MG BY MOUTH (09:13)
[2024-12-05] MEDS: FOLIC ACID 1 MG TABLET PO (09:13)
[2024-12-05] MEDS: RIVAROXABAN 20 MG TABLET PO (09:13)
[2024-12-05] MEDS: NEBIVOLOL HCL 5 MG TABLET 10 MG PO (09:14)
[2024-12-05] MEDS: GENTAMICIN SULFATE INJ 440 MG in DEXTROSE 5% 100 ML 100 MG IVPB (12:37)
--- NOTE | 2024-12-05 13:18 | P.DS_ITS ---
DS: Admitting Diagnosis Discharge Date 12/05/2024 Admitting Diagnosis UTI DS: Discharge Diagnosis Discharge Diagnosis (1) Urinary tract infection: Code(s): N39.0 - Urinary tract infection, site not specified Status: Acute (2) Sepsis: Qualifiers: Sepsis acute organ dysfunction status: unspecified Sepsis type: sepsis due to unspecified organism Qualified Code(s): A41.9 - Sepsis, unspecified organism Code(s): A41.9 - Sepsis, unspecified organism Status: Acute (3) Lesion of right [place] kidney: Code(s): N28.9 - Disorder of kidney and ureter, unspecified Status: Acute (4) Diarrhea: Code(s): R19.7 - Diarrhea, unspecified Status: Acute (5) Hypertension: Onset Date: Unknown Qualifiers: Hypertension type: essential hypertension Qualified Code(s): I10 - Essential (primary) hypertension Code(s): I10 - Essential (primary) hypertension Status: Acute (6) Chronic diastolic heart failure: Onset Date: Unknown Code(s): I50.32 - Chronic diastolic (congestive) heart failure Status: Acute (7) Atrial fibrillation: Code(s): I48.91 - Unspecified atrial fibrillation Status: Acute (8) Chronic anticoagulation: Code(s): Z79.01 - MCFP (current) use of anticoagulants Status: Acute (9) 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 - Conn's syndrome Status: Acute (10) Obstructive sleep apnea treated with continuous positive airway pressure (C PAP): Code(s): G47.33 - Obstructive sleep apnea (adult) (pediatric); Z99.89 - Dependence on other enabling machines and devices Status: Acute DS: Summary Hospital Course Reason for hospitalization: flu symptoms Hospital Course: Patient is a very pleasant 64-year-old male with history of urinary tract infections including ESBL E coli UTIs, epididymitis, chronic kidney disease, kidney stones, Conn's syndrome, atrial fibrillation on chronic anticoagulation, hypertension, dyslipidemia, obstructive sleep apnea on CPAP, chronic cellulitis on low-dose prophylactic penicillin daily, and C diff diarrhea who presented to the emergency department via private vehicle with complaints of flu symptoms. He was treated for urinary tract infection earlier this month with Augmentin and unfortunately developed C diff diarrhea. He finished a course of p.o. vancomycin last and has been feeling good and has had no further episodes of diarrhea. Yesterday morning he woke up ?feeling like I had the flu? with headache, fever, body aches, malaise, and poor appetite. Today he had some mild dysuria and ?right kidney pain? and he came in for evaluation. He denies sick contacts, sore throat, cough, abdominal pain, vomiting, diarrhea, hematuria, rashes, and wounds. In the ED: Vital signs on arrival include a temperature of 99.3?, blood pressure 155/74, pulse 91, respiratory 18, SpO2 98% on room air. Labs are significant for a WBC count of 18.2, sodium 135, chloride 97, creatinine 1.60, total bili 1.8, total protein 9.0. Urinalysis was positive for 3+ leukocyte esterase and 51 to 100 WBC. No bacteria and occasional squamous cells on microscopy. COVID, RSV, and influenza were negative. CT of the abdomen and pelvis showed hepatomegaly and a 1.8 cm suspicious right upper pole lesion. He was started on meropenem in the ED given history of ESBL E coli urinary tract infection and he is being admitted in this setting for further treatment and evaluation. Place on IV Meropenem given ESBL history. Also placed on prophylactic PO Vanc give cdiff history. Stool sample assessed for cdiff but was negative. PO Vanc discontinued. Abdominal MRI ordered and showed 1.4 cm Bosniak type III cystic lesion of right kidney. Note that the time course of findings decreases the odds of malignancy relative to other Bosniak type III lesions. Urology consulted, Agr ee with culture-directed antibiotics, possibly developed another UTI due to C.diff diarrheal illness, Doubt 1.4 cm right renal cyst or small nonobstructing renal stones are source of flank pain, started tamsulosin, ordered a bladder scan for PVR (which resulted in 2mL), recommended no surgical intervention, and recommended to maintain outpatient appointment with urology with Dr. Solis on 12/29/24. Possible outpt cystoscopy for urethral, bladder wall and prostate evaluation. Patient otherwise able to intake PO medications. Laboratory blood work indicate positive trend with antibiotic coverage, showing WBC decrease from 18..6 -> 10.7. No gross electrolyte abnormalities. BUN and Cr elevated at 24 and 1.8 respectively, however this may be his baseline as previous reported values on 10/23/24 were 23 and 1.65 respectively. Patient otherwise stable and wishes to be discharged today as he feels as though his symptoms have mostly resovled. He denies any chest pain, shortness of breath, n/v, or abdominal pain. Patient stable for discharge at this time and will be discharged on Macrobid PO. Pt amenable to this plan. Time Spent with Patient Time attestation: Total time spent providing and/or coordinating discharge services: 45 Exam Narrative: General: Well-developed, nontoxic-appearing male sitting in a chair at the side of the bed. Weight: 118.2 kg. BMI: 39.6. HEENT: PERRL, EOMI. Sclera anicteric. Tacky mucous membranes. Neck: Supple. Respiratory: Lungs are clear to auscultation bilaterally. Cardiovascular: Irregularly irregular rate and rhythm with S1-S2. Gastrointestinal: Abdomen is soft, obese nontender, and nondistended with positive bowel sounds. No CVA tenderness. Skin: Warm and dry. Extremities: No cyanosis or clubbing. Mild lower extremity edema. Radial and pedal pulses intact. Neurological: Alert. Cranial nerves 2-12 are grossly intact. No gross focal deficits to casual conversation. Psychiatric: Pleasant and cooperative with normal mood and affect. Judgment and insight intact. DS: Data Data Completed and Pending Labs on day of discharge: Labs from last 24 hours 12/05/24 12/04/24 07:56 22:00 WBC 10.7 H RBC 4.74 Hgb 14.8 Hct 46.7 MCV 98.5 MCH 31.2 MCHC 31.7 L RDW 15.7 H Plt Count 190 MPV 10.8 H Immature Gran % (Auto) 0.5 Neut % (Auto) 81.2 H Lymph % (Auto) 6.2 L [place] % (Auto) 9.6 H Eos % (Auto) 2.0 Baso % (Auto) 0.5 Lymph # (Auto) 0.66 L [place] # (Auto) 1.0 H Eos # (Auto) 0.2 Baso # (Auto) 0.1 Abs Immat Gran (auto) 0.05 H Absolute Neuts (auto) 8.7 H Absolute Nucleated RBC 0.000 Nucleated RBC % 0.0 Sodium 138 Potassium 4.2 Chloride 103 Carbon Dioxide 27 Anion Gap 8 BUN 24 H Creatinine 1.80 H Estim Creat Clear Calc 47 Estimated GFR 38 L Glucose 106 Calcium 8.9 Total Bilirubin 0.7 AST 29 ALT 31 Alkaline Phosphatase 66 Total Protein 7.0 Albumin 3.9 C. difficile (PCR) Negative Preliminary micro results at discharge 12/03/24 14:04 Urine Culture - Preliminary Unspecified Escherichia Coli 12/03/24 17:56 Blood Culture - Preliminary Blood Discharge Plan Discharge Attending physician on discharge: Gagandeep Garcia Consulting providers: Clay Valdez Discharging Clinician: Gagandeep Garcia Anticipated Discharge Date/Time: 12/05/24 13:12 Patient Disposition: Home, Self-Care Activity: as tolerated Diet: as tolerated Discharge Instructions: Take all medications as prescribed even if feeling better. You will be prescribed Bactrim, take this for the entire course. Eat well balanced meals and stay hydrated Keep active to remain strong Trend urine output If you should experience any chest pain, shortness of breath, temps >100.4 or any other worrisome symptoms please follow up with your PCP come back to the hospital Follow up with your primary in 2-3 weeks Maintain your appointment with your urologist, Dr. Solis. Call their office to see if you are able to move that appointment to an earlier date. It has been a pleasure taking care of you thank you for using our services Patient Instructions: Antibiotic Form, Rivaroxaban (By mouth), Heart Failure (GEN) Patient Language: Libyan Stand Alone Forms: General Discharge Information Follow-up/Referrals: Srikanth Solis MD [Physician] - 12/29/24 2:00 pm (First office visit. Please arrive at least 30minutes prior to scheduled appointment time to complete new patient paperwork.) Discharge Medications: New nitrofurantoin monohyd/m-cryst [Macrobid] 100 mg capsule 100 mg PO Q12H 7 Days Qty: 14 0RF Rx Instructions: must administer with a meal/food Continued acetaminophen-codeine 300-30 mg tablet 1 tablet PO Q6H PRN (Reason: pain) Qty: 30 1RF spironolactone 25 mg tablet See Rx Instructions .ROUTE .COMPLEX Dose Instruction: TAKE 1 TABLET BY MOUTH TWICE DAILY Rx Instructions: TAKE 2 TABLET BY MOUTH DAILY albuterol sulfate [Ventolin HFA] 90 mcg/actuation HFA aerosol inhaler 1 puff inhalation Q4H PRN (Reason: shortness of breath or wheezing) Qty: 8.5 0RF Bystolic 10 mg tablet 10 mg PO DAILY Qty: 90 3RF colchicine 0.6 mg tablet 0.6 mg PO TID Qty: 15 0RF furosemide 80 mg tablet 80 mg PO BID Qty: 180 0RF hydralazine 100 mg tablet See Rx Instructions .ROUTE .COMPLEX Qty: 270 3RF Dose Instruction: TAKE 1 TABLET 3 TIMES A DAY Rx Instructions: TAKE 1 TABLET 3 TIMES A DAY potassium chloride 20 mEq tablet extended release See Rx Instructions .ROUTE .COMPLEX Qty: 270 0RF Dose Instruction: TAKE 5 TABLETS DAILY Rx Instructions: TAKE 3 TABLETS DAILY; Xarelto 20 mg tablet 20 mg PO DAILY Qty: 90 2RF Rx Instructions: must administer with evening meal candesartan 32 mg tablet 32 mg PO DAILY Qty: 90 3RF folic acid 1 mg tablet 1 mg PO DAILY Qty: 90 3RF rosuvastatin 5 mg tablet 5 mg PO DAILY Qty: 90 1RF testosterone 20.25 mg/1.25 gram (1.62 %) gel in metered-dose pump 4 pump topical DAILY Qty: 75 0RF Rx Instructions: apply 4 pumps amount over max area of EACH upper arm and shoulder- QUANTITIY EFFICIENT 90 DAY SUPPLY tramadol 50 mg tablet 50 mg PO Q6H Qty: 60 0RF Discontinued penicillin V potassium 500 mg tablet 500 mg PO Q12H Qty: 180 1RF vancomycin [Vancocin] 250 mg capsule 250 mg PO Q6H 10 Days Qty: 40 0RF Date of admission: 12/04/24 07:26 Primary Care Provider: Cordell House Admitting Provider: Remy Foster Attending physician on admission: Gagandeep Garcia Condition: Stable Quality VTE Prophylaxis VTE prophylaxis: pharmacologic ordered (on rivaroxaban) Hospitalist TREVA Heart Failure (Exclusion) Patient has history of Heart Transplant or Left Ventricular Assistive Device?: No IF YES, STOP HERE Heart Failure (Qualifier) Patient has current or prior documentation of LVEF less than or equal to 40%, or mod/servere depressed LVSF?: No IF NO, STOP HERE
[2024-12-05 14:00] VITALS: BP 109/62; PULSE 80; RESP 16; TEMP 36; O2SAT 98
== END 2024-12-05 15:21 | disposition home or self-care (01) | DRG 872 ==
LOC: ANHED 15:33 → ANH3MEDSUR 18:10
PROVIDERS: Physician Assistant; Student in an Organized Health Care Education/Training Program; Admitting Provider Internal Medicine; Emergency Provider Physician Assistant; PCP Internal Medicine; Visit Provider Physician Assistant
DX: A41.9 Sepsis, unspecified organism (principal); I48.20 Chronic atrial fibrillation, unspecified; I13.0 Hypertensive heart and chronic kidney disease with heart failure and stage 1 through stage 4 chronic kidney disease, or unspecified chronic kidney disease; I50.32 Chronic diastolic (congestive) heart failure; N39.0 Urinary tract infection, site not specified; N18.30 Chronic kidney disease, stage 3 unspecified; I89.0 Lymphedema, not elsewhere classified; D50.9 Iron deficiency anemia, unspecified; E55.9 Vitamin D deficiency, unspecified; E26.01 Conn's syndrome; E78.5 Hyperlipidemia, unspecified; N28.9 Disorder of kidney and ureter, unspecified; R19.7 Diarrhea, unspecified; M17.11 Unilateral primary osteoarthritis, right knee; M54.50 Low back pain, unspecified; G89.29 Other chronic pain; G47.33 Obstructive sleep apnea (adult) (pediatric); Z20.822 Contact with and (suspected) exposure to COVID-19; Z86.73 Personal history of transient ischemic attack (TIA), and cerebral infarction without residual deficits; Z79.01 Long term (current) use of anticoagulants; Z79.899 Other long term (current) drug therapy; Z87.442 Personal history of urinary calculi; Z86.0101 Personal history of adenomatous and serrated colon polyps; Z80.0 Family history of malignant neoplasm of digestive organs
CPT/HCPCS: 36415; 74176; 74183; 80048; 80053; 81001; 83735; 85025; 85027; 87040; 87086; 87186; 87493; 87637; 96361; 96365; 99285; A9270; A9577; G0378; J1580; J2185; J2405; J7030; J7120

== ENCOUNTER 2025-02-15 13:24 | Outpatient (CLI) | payer MEDICARE, SELFPAY ==
[2025-02-15 14:01] LABS: Basophils Percent Auto 0.5 % (0.2-1.2); Eosinophils Absolute Auto 0.2 K/mm3 (0-0.3); Eosinophils Percent Auto 2.3 % (0-4.4); Hematocrit 52.1 % (42.0-52.0); Hemoglobin 16.3 g/dL (14.0-18.0); Immature Granulocyte Absolute 0.04 K/mm3 (0.00-0.031); Immature Granulocyte Percent A 0.5 % (0-0.5); Lymphocytes Absolute Auto 0.99 K/mm3 (0.9-3.2); Lymphocytes Percent Auto 12.5 % (18.3-44.2); Mean Corpuscular HGB Conc 31.3 g/dl (32-36); Mean Corpuscular Hemoglobin 30.2 pg (26-34); Mean Corpuscular Volume 96.5 fl (80-100); Mean Platelet Volume 10.5 fl (7.4-10.4); Monocytes Absolute Auto 0.8 K/mm3 (0.1-0.6); Monocytes Percent Auto 9.6 % (2.6-8.5); Neutrophils Absolute Auto 5.9 K/mm3 (1.3-6.7); Neutrophils Percent Auto 74.6 % (45.5-73.1); Platelet Count Result 208 k/mm3 (150-375); Red Cell Distribution Width 16.4 % (11.5-14.5); White Blood Count 7.9 K/mm3 (4.5-10.0)
--- OUTSIDE RECORDS SUMMARY | 2025-02-15 14:02 | XMS_ITS | Referral Summary ---
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
--- OUTSIDE RECORDS SUMMARY | 2025-02-15 14:02 | XMS_ITS | Clinical Summary ---
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 [address] [place] [address] PCP - General 05/05/13
--- OUTSIDE RECORDS SUMMARY | 2025-02-15 14:02 | XMS_ITS | Data Portability ---
Author Organization [place] [facility], Main Office Address [address] [place] [address] Care Team Providers Care Cashier Manager Name Role Phone VANDANA VALENZUELA Primary Care Provider VANDANA VALENZUELA Referring Provider [phone] Assessment Encounter Date Assessment Date Assessment LastModified [...] exam: 62-year-old male alert pleasant. He has apnr-ch-rbiuykqo effusion right knee. Range of motion is [...] exam: 63-year-old male alert pleasant. He has sgws-xo-ijgwibaw effusion right knee. Mild varus alignment. Range [...] 63-year-old male alert pleasant. He has a vhlu-km-jcvpmpgx effusion right knee. No redness or warmth. [...] procedure, administere d by provider 2023 024 [email or web address] In-Office Order, Internal Use Only DO Not Attach Compendium DO Not Attach Compendium, Do Not Delete/merge, [id number] 14:17:58 injection/a spiration joint/bursa (PROC) - in office procedure, administere d by provider 2023 024 [email or web address] In-Office Order, Internal Use Only DO Not Attach Compendium DO Not Attach Compendium, Do Not Delete/merge, [id number] 4 14:17:59 injection/a spiration joint/bursa (PROC) - in office procedure, administere d by provider 2022 023 [email or web address] In-Office Order, Internal Use Only DO Not Attach Compendium DO Not Attach Compendium, Do Not Delete/merge, [id number] 3 14:12:08 injection/a spiration joint/bursa (PROC) - in office procedure, administere d by provider 2022 023 [email or web address] In-Office Order, Internal Use Only DO Not Attach Compendium DO Not Attach Compendium, Do Not Delete/merge, [id number] 3 12:23:39 injection/a spiration joint/bursa (PROC) - in office procedure, administere d by provider 2022 023 [email or web address] In-Office Order, Internal Use Only DO Not Attach Compendium DO Not Attach Compendium, Do Not Delete/merge, [id number] 3 12:54:07 injection/a spiration joint/bursa (PROC) - in office procedure, administere d by provider 2022 023 [email or web address] In-Office Order, Internal Use Only DO Not Attach Compendium DO Not Attach Compendium, Do Not Delete/merge, [id number] 3 13:46:26 injection/a spiration joint/bursa (PROC) - in office procedure, administere d by provider 2022 023 [email or web address] In-Office Order, Internal Use Only DO Not Attach Compendium DO Not Attach Compendium, Do Not Delete/merge, [id number] 3 14:03:35 Surgeries None recorded. Imaging XR, knee 2022 023 [email or web address] [facility] [place], [address], [place], [address], 3 15:44:15 Medication Orders Kenalog 10 mg/mL suspension for injection [address] [facility]720, [address] [place], [place], [id number], 4 14:45:29 ropivacaine (PF) 5 mg/mL (0.5 %) injection solution [address] [facility]37366, [address] [place], [place], [id number], 4 14:45:29 Kenalog 10 mg/mL suspension for injection [address] [facility]14634, [address] [place], [place], [id number], 4 14:45:29 ropivacaine (PF) 5 mg/mL (0.5 %) injection solution [address] [facility]19331, [address] [place], [place], [id number], 4 14:45:29 Kenalog 10 mg/mL suspension for injection [address] [facility]53180, [address] [place], [place], [id number], 3 15:48:59 ropivacaine (PF) 5 mg/mL (0.5 %) injection solution [address] [facility]69487, [address] [place], [place], [id number], 3 15:48:59 Kenalog 10 mg/mL suspension for injection [email or web address] [facility] #96614, [address] [place], [place], [id number], 3 13:56:32 ropivacaine (PF) 5 mg/mL (0.5 %) injection solution 2022 [address] [facility], [address] [place], [place], [id number], 3 13:57:08 Kenalog 10 mg/mL suspension for injection 2022 023 [address] [facility], [address] [place], [place], [id number], 3 13:56:32 ropivacaine (PF) 5 mg/mL (0.5 %) injection solution 2022 023 [address] [facility], [address] [place] [address], [id number], 3 13:57:08 Kenalog 10 mg/mL suspension for injection 2022 023 [address] [facility] [facility], [address] [place], [place], [id number], 3 13:56:32 ropivacaine (PF) 5 mg/mL (0.5 %) injection [facility] 2022 [facility], [address] [place], [place], [id number], 3 13:57:08 Kenalog 10 mg/mL suspension for injection [address] [place], [place] [address]18, [address] [place], [place], [id number], 3 13:56:32 ropivacaine (PF) 5 mg/mL (0.5 %) injection solution [email or web address] [facility] #19691, [address] [facility], [place], [place], [id number], 3 13:57:08 Patient TargetsNo targets recorded. Patient InstructionsNo instructions recorded. Reason for Referral None Reported. Results Created Date Observation Date Name Description Value Unit Range Abnormal Flag Note LastModifiedBy Organization Detail LastModifiedTime 04/23/20 23 XR, knee No observ ation record ed. [facility] [place] [address], [place], [address], 04/23/2023 12:58:15 Result Notes None recorded. Problems Name Problem SNOMED Code Status Onset Date Resolution Date Notes Provider Name and Address Organization Details Recorded Time Osteoarthr itis of right knee joint 6012820374178 00 Active 2022 SAMM Lucas, [facility] [employer] [facility] 3 13:44:54 Bilateral thumb pain 1177145442251 9102 Active 2022 Maryjane esteban, [facility] [employer] [facility] 3 14:09:48 Pain of bilateral hands 1802725474102 9109 Active 2022 Not Available Count includes the [facility] 3 04:51:03 Osteoarthr itis of knee 771705884 Active 2021 Not Available Count includes the [facility] 3 04:51:03 Osteoarthr itis 544286973 Active Not Available [facility] 3 04:51:03 Problem Notes None recorded. Procedures Surgical History Date Name Laterality Status Provider Name and Address Organization Details Recorded Time Knee completed Not Available [facility] 09/2022 04:42:13 Gallbladder Surgery completed Not Available [facility] 11/04/2022 04:42:13 procedure completed Not Available [facility] 0 11/04/2022 04:42:13 Imaging Results None recorded. Procedure Notes None recorded. Medical Equipment None [...] suspension for injection in office 2023 active [facility]: 0003- 0494- 20 Not Available Not [...] administe red by the provider 03/20 completed [facility]: 0409- 4276- 17 Not Available Not [...] %) injection solution in office 2023 active [facility] 94510 -064- 01 Not Available Not Available Not [...] Updated DateTime 10/12/2022 40 kg/m2 172.72 cm 250608.79 g Not Available [facility] 11/04/2022 04:48:25 Date Recorded Body height Provider Name an d Address Organization Details Last Updated DateTime 11/12/2023 170.18 cm Jessica Viera [employer] [facility] 11/12/2023 14:14:00 Date Recorded Body height Provider Name an d Address Organization Details Last Updated DateTime 01/11/2023 172.72 cm Jessica Viera [facility] [employer] [facility] [employer] [facility] 01/11/2023 13:43:59 Date Recorded Body height Provider Name an d Address Organization Details Last Updated DateTime 04/23/2023 172.72 cm Jessica Viera [facility] [employer] [facility] [employer] [facility] 04/23/2023 12:21:38 Date Recorded Body height Body mass index (BMI) Body weight Provider Name and Address Organization Details Last Updated DateTime 07/23/2023 170.18 cm 41.7 kg/m2 613454.57 g Jessica Viera [employer] [facility] [employer] [facility] 07/23/2023 14:04:08 Social History Question Answer Notes LastModified by [employer] Details LastModified Time Tobacco Smoking Status Never Smoker Not Available [facility] 11/04/2022 04:41:33 How Much Tobacco Do You Smoke? No [id number] Information not available 11/04/2022 Sex: Unknown Functional Status Question Answer Note LastModified by [employer] Details LastModified Time What is your level of alcohol consumption? Occasional [id number] Information not available 11/04/2022 Mental Status None recorded. Family History Relationship Description Onset Age of this Age Resolved Age Notes LastModified by Organization Details LastModified Time Father Family history of malignant neoplasm [id number] Not available 11/04/2022 04:42:20 Father Hypertensive disorder [id number] [id number] Not available 11/04/2022 04:42:20 Mother Family history of malignant neoplasm [id number] [id number] Not available 11/04/2022 04:42:20 Brother Kidney disease [id number].105 [id number] Not available 11/04/2022 04:42:20 Father Heart disease [...] SNOMED-CT Code Diagnosis ICD10 Code Diagnosis Note [id number] Farhad Varghese MD [facility] [place] [address] [place] [address] 12/18/2020 00:00:00 12/18/2020 14:04:44 [id number] Farhad Varghese MD [facility] [place] [address] [place] [address] 03/19/2021 00:00:00 03/19/2021 14:48:28 [id number] Farhad Varghese MD [facility] [place] [address] [place] [address] 06/18/2021 00:00:00 06/18/2021 14:28:21 [id number] Farhad Varghese MD [facility] [place] [address] [place] [address] 09/24/2021 00:00:00 09/24/2021 14:12:19 [id number] Farhad Varghese MD [facility] [place] [address] [place] [address] 12/17/2021 00:00:00 12/17/2021 14:05:02 [id number] Farhad Varghese MD [facility] [place] [address] [place] [address] 03/20/2022 00:00:00 03/20/2022 14:21:39 [id number] Farhad Varghese MD [facility] [place] [address] [place] [address] 06/24/2022 00:00:00 06/24/2022 15:57:01 [id number] [facility] [place] [address] [place] [address] 07/10/2022 00:00:00 07/10/2022 15:41:21 [id number] Farhad Varghese MD [facility] [place] [address] [place] [address] 10/12/2022 00:00:00 10/12/2022 14:55:14 [id number] Farhad Varghese MD [facility] [place] [address] [place] [address] 01/11/2023 13:41:36 01/11/2023 14:23:07 Osteoarthritis of right knee joint 5770398201 95477 M17.11 Pain of bi lateral hands 6663335182 0473467 M79.641 M79.642 [id number] Farhad Varghese MD [facility] [place] [address] [place] [address] 04/23/2023 12:18:25 04/23/2023 13:06:22 Osteoarthritis of right knee joint 2812595886 96570 M17.11 Pain of bi lateral hands 0226619182 7390766 M79.641 M79.090 [id number] Farhad Varghese MD [facility] [place] [address] [place] [address] 07/23/2023 13:34:53 07/23/2023 14:19:30 Osteoarthritis of right knee joint 3696748581 79715 M17.11 Bilateral thumb pain 466 6273755 1380756 M79.644 M79.201 [id number] Farhad Varghese MD [facility] [place] [address] [place] [address] 11/12/2023 14:08:04 11/12/2023 15:43:17 Osteoarthritis of right knee joint 9881742099 87838 M17.11 Bilateral thumb pain 747 9886455 5555291 M79.644 M79.645 Health Concerns Section Related Observation LastModified by Organization Detai ls LastModified Time None Recorded Concern Status LastModified by Organization Details LastModified Time None Recorded Advance Directives Directive None Recorded Payers Insurance Date Sequence Insurance Name Policy Number Policy Schumacher Covered Member ID Schumacher Member ID Guarantor Name 11/18/2023 1 [employer] (MEDICARE REPLACEMENT /ADVANTAGE - PPO) [id number] 1 Jaden Jin [id number] Jaden Jin
[2025-02-15 14:08] LABS: Alanine Aminotransferase 31 U/L (6-50); Albumin Level 4.4 g/dL (3.5-5.1); Alkaline Phosphatase 59 U/L (38-126); Anion Gap 9 mmol/L (4-12); Aspartate Amino Transferase 30 U/L (17-59); Bilirubin,Total 0.7 mg/dL (0.2-1.3); Blood Urea Nitrogen 25 mg/dL (9-20); Calcium 9.8 mg/dL (8.4-10.2); Carbon Dioxide 28 mmol/L (22-30); Chloride 102 mmol/L (98-107); Cholesterol 169 mg/dL (0-200); Estimated Glomerular Filt Rate 47; Glucose 122 mg/dL (65-110); HDL Direct 35 mg/dL; Sodium 139 mmol/L (137-145); Total Protein 7.9 g/dL (6.3-8.2); Triglycerides 87 mg/dL (<150)
[2025-02-15 14:19] LABS: LDL Cholesterol Direct 106 mg/dL
[2025-02-15 14:22] LABS: Hemoglobin A1C 5.6 % (<5.7)
[2025-02-15 14:25] LABS: Free T4 Free Thyroxine 1.15 ng/dL (0.78-2.19)
== END 2025-02-15 13:25 | disposition home or self-care (01) ==
LOC: ANHLAB 13:25
PROVIDERS: PCP Internal Medicine; Visit Provider Internal Medicine
DX: Z13.29 Encounter for screening for other suspected endocrine disorder (principal); I12.9 Hypertensive chronic kidney disease with stage 1 through stage 4 chronic kidney disease, or unspecified chronic kidney disease; Z79.899 Other long term (current) drug therapy; E78.2 Mixed hyperlipidemia; R73.02 Impaired glucose tolerance (oral); N18.9 Chronic kidney disease, unspecified
CPT/HCPCS: 36415; 80053; 80061; 83036; 84439; 84443; 85025

== ENCOUNTER 2025-03-20 16:03 | Outpatient (CLI) | payer MEDICARE, SELFPAY ==
--- OUTSIDE RECORDS SUMMARY | 2025-03-20 16:07 | XMS_ITS | Clinical Summary ---
Author Organization [facility] [address] Address [address] [place] [address] Care Team Providers Care Partner Name Role Phone Cordell House MD Primary Care Provider [phone] Allergies Active Allergy Reactions Criticality Noted Date [...] on file Legal Sex Male 2:58 AM [employer] Gender Identity Not on file Sexual Orientation [...] of Treatment Not on file Care Teams Partner Relationship Specialty Start Date End Date Cordell House MD [address] [facility] [address] [place] [address] PCP - General 05/05/13
--- OUTSIDE RECORDS SUMMARY | 2025-03-20 16:07 | XMS_ITS | Data Portability ---
Author Organization [facility], Main Office Address [address] [place] [address] Care Team Providers Care Doctor Of Nursing Practice Name Role Phone VANDANA VALENZUELA Primary Care Provider VANDANA VALENZUELA Referring Provider [phone] Assessment Encounter Date Assessment Date Assessment LastModified [...] exam: 62-year-old male alert pleasant. He has wkdf-yd-ivtlrrcc effusion right knee. Range of motion is [...] exam: 63-year-old male alert pleasant. He has lzrz-iw-vjedetma effusion right knee. Mild varus alignment. Range [...] 63-year-old male alert pleasant. He has a fimz-xm-osjiryan effusion right knee. No redness or warmth. [...] DO Not Attach Compendium, Do Not Delete/merge, [id number] 4 14:17:58 injection/a spiration joint/bursa (PROC) - in office procedure, administere d by provider 2023 024 [email or web address] In-Office Order, Internal Use Only DO Not Attach Compendium DO Not Attach Compendium, Do Not Delete/merge, [id number] 4 14:17:59 injection/a spiration joint/bursa (PROC) - in office procedure, administere d by provider 2022 023 [email or web address] In-Office Order, Internal Use Only DO Not Attach Compendium DO Not Attach Compendium, Do Not Delete/merge, Formerly [facility], [facility] 3 14:12:08 injection/a spiration joint/bursa (PROC) - in office procedure, administere d by provider 2022 023 In-Office Order, Internal Use Only DO Not Attach Compendium DO Not Attach Compendium, Do Not Delete/merge, [facility]ly [facility], [facility] 3 12:23:39 injection/a spiration joint/bursa (PROC) - in office procedure, administere d by provider 2022 023 [email or web address] In-Office Order, Internal Use Only DO Not Attach Compendium DO Not Attach Compendium, Do Not Delete/merge, [facility]ly [facility], [facility] 3 12:54:07 injection/a spiration joint/bursa (PROC) - in office procedure, administere d by provider 2022 023 [email or web address] In-Office Order, Internal Use Only DO Not Attach Compendium DO Not Attach Compendium, Do Not Delete/merge, [facility]ly [facility], [facility] 3 13:46:26 injection/a spiration joint/bursa (PROC) - in office procedure, administere d by provider 2022 023 [email or web address] In-Office Order, Internal Use Only DO Not Attach Compendium DO Not Attach Compendium, Do Not Delete/merge, [facility]ly [facility], [facility] 3 14:03:35 Surgeries None recorded. Imaging XR, knee 2022 023 [email or web address] [facility] [place], [address], [place], [address], 3 15:44:15 Medication Orders Kenalog 10 mg/mL suspension for injection [address] [facility]673, [address] [place], [place], [id number], 4 14:45:29 ropivacaine (PF) 5 mg/mL (0.5 %) injection solution [address] [facility]14453, [address] [place], [place], [id number], 4 14:45:29 Kenalog 10 mg/mL suspension for injection [address] [facility] #25562, [address] [place], [place], [id number], 4 14:45:29 ropivacaine (PF) 5 mg/mL (0.5 %) injection solution [address] [facility] #49416, [address] [place], [place], [id number], 4 14:45:29 Kenalog 10 mg/mL suspension for injection [address] [facility] #77665, [address] [place], [place], [id number], 3 15:48:59 ropivacaine (PF) 5 mg/mL (0.5 %) injection solution [address] [facility]30056, [address] [place], [place], [id number], 3 15:48:59 Kenalog 10 mg/mL suspension for injection [email or web address] [place] [address] [facility] #01436, [address] [place], [place], [id number], 3 13:56:32 ropivacaine (PF) 5 mg/mL (0.5 %) injection solution 2022 023 [address] [facility], [address] [place], [place], [id number], 3 13:57:08 Kenalog 10 mg/mL suspension for injection 2022 [address], [address] [place], [place], [id number], 3 13:56:32 ropivacaine (PF) 5 mg/mL (0.5 %) injection solution [address] [place], [place] [address]99472, [address] [place] [address], [id number], 3 13:57:08 Kenalog 10 mg/mL suspension for injection [address] [place], [place] [address]00152, [address] [place] [address], [id number], 3 13:56:32 ropivacaine (PF) 5 mg/mL (0.5 %) injection solution 2022 023 [facility], [address] [place], [place], [id number], 3 13:57:08 Kenalog 10 mg/mL suspension for injection 2022 023 [facility], [address] [place], [place], [id number], 3 13:56:32 ropivacaine (PF) 5 mg/mL (0.5 %) injection solution 2022 023 [email or web address] [facility] #39574, [address] [facility], [place], [place], [id number], 3 13:57:08 Patient TargetsNo targets recorded. Patient InstructionsNo instructions recorded. Reason for Referral None Reported. Results Created Date Observation Date Name Description Value Unit Range Abnormal Flag Note LastModifiedBy Organization Detail LastModifiedTime 04/23/20 23 XR, knee No observ ation record ed. [facility] [place] [address] [facility] [address], [place], [address], 04/23/2023 12:58:15 Result Notes None recorded. Problems Name Problem SNOMED Code Status Onset Date Resolution Date Notes Provider Name and Address Organization Details Recorded Time Osteoarthr itis of right knee joint 4003756013912 00 Active 2022 SAMM Lucas, [facility] [employer] [facility] 3 13:44:54 Bilateral thumb pain 6023567461140 9102 Active 2022 Maryjane esteban, [facility] 3 14:09:48 Pain of bilateral hands 5322647506238 9109 Active 2022 Not Available [facility] 3 04:51:03 Osteoarthr itis of knee 390569351 Active 2021 Not Available [facility] 3 04:51:03 Osteoarthr itis 884689129 Active Not Available [facility] 3 04:51:03 Problem Notes None recorded. Procedures Surgical History Date Name Laterality Status Provider Name and Address Organization Details Recorded Time Knee completed Not Available [facility] 09/2022 04:42:13 Gallbladder Surgery completed Not Available [facility] 11/04/2022 04:42:13 procedure completed Not Available [facility] 0 11/04/2022 04:42:13 Imaging Results None recorded. [...] suspension for injection in office 2023 active [facility]: 0003- 0494- 20 Not Available Not [...] administe red by the provider 03/20 completed [facility]: 0409- 4276- 17 Not Available Not [...] %) injection solution in office 2023 active [facility] 22071 -064- 01 Not Available Not Available Not [...] Updated DateTime 10/12/2022 40 kg/m2 172.72 cm 681923.79 g Not Available [facility] 11/04/2022 04:48:25 Date Recorded Body height Provider Name an d Address Organization Details Last Updated DateTime 11/12/2023 170.18 cm Jessica Viera [email or web address] [facility] 11/12/2023 14:14:00 Date Recorded Body height Provider Name an d Address Organization Details Last Updated DateTime 01/11/2023 172.72 cm Jessica Viera [email or web address] [facility] [employer] [facility] 01/11/2023 13:43:59 Date Recorded Body height Provider Name an d Address Organization Details Last Updated DateTime 04/23/2023 172.72 cm Jessica Viera [facility] [employer] [facility] [employer] [facility] 04/23/2023 12:21:38 Date Recorded Body height Body mass index (BMI) Body weight Provider Name and Address Organization Details Last Updated DateTime 07/23/2023 170.18 cm 41.7 kg/m2 349736.57 g Jessica Viera [email or web address] [facility] [employer] [facility] 07/23/2023 14:04:08 Social History Question Answer Notes LastModified by Purple Details LastModified Time Tobacco Smoking Status Never Smoker Not Available [facility] 11/04/2022 04:41:33 How Much Tobacco Do You Smoke? No [id number] Information not available 11/04/2022 Sex: Unknown Functional Status Question Answer Note LastModified by Purple Details LastModified Time What is your level of alcohol consumption? Occasional [id number] Information not available 11/04/2022 Mental Status None recorded. Family History Relationship Description Onset Age of this Age Resolved Age Notes LastModified by Organization Details LastModified Time Father Family history of malignant neoplasm [id number] Not available 11/04/2022 04:42:20 Father Hypertensive disorder [id number] Not available 11/04/2022 04:42:20 Mother Family history of malignant neoplasm [id number] Not available 11/04/2022 04:42:20 Brother Kidney disease [id number] Not available 11/04/2022 04:42:20 Father Heart disease [email or web address] Not available 2022 13:58:34 Brother Hypertensive disorder [email or web address] Not available 11/17/ 2023 13:59:03 Medical History Condition Response HEART DISEASE/HEART PROBLEMS Y ARTHRITIS Y USE OF BLOOD THINNERS Y ANEMIA/BLOOD DISORDER Y BLOOD CLOTS Y HYPERTENSION Y STROKE/TIA Y Past Encounters Encounter ID Performer Location Encounter Start Date Encounter Closed Date Diagnosis/Indication Diagnosis SNOMED-CT Code Diagnosis ICD10 Code Diagnosis Note [id number] Farhad Varghese MD [facility] [place] [address] [place] [address] 12/18/2020 00:00:00 12/18/2020 14:04:44 [id number] Farhad Varghese MD [facility] [place] [address] [place] [address] 03/19/2021 00:00:00 03/19/2021 14:48:28 [id number] Farhad Varghese MD [facility] [place] [address] [place] [address] 06/18/2021 00:00:00 06/18/2021 14:28:21 [id number] Farhad Varghese MD [facility] [place] [address] [place] [address] 09/24/2021 00:00:00 09/24/2021 14:12:19 [id number] Farhad Varghese MD [facility] [place] [address] [place] [address] 12/17/2021 00:00:00 12/17/2021 14:05:02 [id number] Farhad Varghese MD [facility] [place] [address] [place] [address] 03/20/2022 00:00:00 03/20/2022 14:21:39 [id number] Farhad Varghese MD [facility] [place] [address] [place] [address] 06/24/2022 00:00:00 06/24/2022 15:57:01 [id number] Farhad Varghese MD [facility] [place] [address] [place] [address] 07/10/2022 00:00:00 07/10/2022 15:41:21 [id number] Farhad Varghese MD [facility] [place] [address] [place] [address] 10/12/2022 00:00:00 10/12/2022 14:55:14 [id number] Farhad Varghese MD [facility] [place] [address] [place] [address] 01/11/2023 13:41:36 01/11/2023 14:23:07 Osteoarthritis of right knee joint 7764572469 90954 M17.11 Pain of bi lateral hands 4508310537 4113964 M79.641 M79.642 [id number] Farhad Varghese MD [facility] [place] [address] [place] [address] 04/23/2023 12:18:25 04/23/2023 13:06:22 Osteoarthritis of right knee joint 0846410178 64127 M17.11 Pain of bi lateral hands 1968442661 5473236 M79.641 M79.524 [id number] Farhad Varghese MD [facility] [place] [address] [place] [address] 07/23/2023 13:34:53 07/23/2023 14:19:30 Osteoarthritis of right knee joint 4454486582 36148 M17.11 Bilateral thumb pain 192 7963703 1746627 M79.644 M79.796 [id number] Farhad Varghese MD [facility] [place] [address] [place] [address] 11/12/2023 14:08:04 11/12/2023 15:43:17 Osteoarthritis of right knee joint 0055912763 76586 M17.11 Bilateral thumb pain 283 7822995 4527116 M79.644 M79.645 Health Concerns Section Related Observation LastModified by Organization Detai ls LastModified Time None Recorded Concern Status LastModified by Organization Details LastModified Time None Recorded Advance Directives Directive None Recorded Payers Insurance Date Sequence Insurance Name Policy Number Policy Schumacher Covered Member ID Schumacher Member ID Guarantor Name 11/18/2023 1 [employer] (MEDICARE REPLACEMENT /ADVANTAGE - PPO) [id number] Jaden Jin [id number] Jaden Jin
--- OUTSIDE RECORDS SUMMARY | 2025-03-20 16:07 | XMS_ITS | Referral Summary ---
Author Organization [facility] [place] [address] Address [address] [place] [address] Care Team Providers Care Alliances Consultant Name Role Phone Cordell House MD Primary Care Provider [phone] Allergies Active Allergy Reactions Criticality Noted Date [...] on file Legal Sex Male 2:58 AM [employer] Gender Identity Not on file Sexual Orientation [...] of Treatment Not on file Care Teams Alliances Consultant Relationship Specialty Start Date End Date Cordell House MD [address] [facility] [address] [place] [address] PCP - General 05/05/13
[2025-03-20 16:45] LABS: Albumin Level 4.6 g/dL (3.5-5.1); Anion Gap 10 mmol/L (4-12); Blood Urea Nitrogen 22 mg/dL (9-20); Calcium 9.8 mg/dL (8.4-10.2); Carbon Dioxide 28 mmol/L (22-30); Chloride 100 mmol/L (98-107); Estimated Glomerular Filt Rate 45; Glucose 83 mg/dL (65-110); Potassium 4.1 mmol/L (3.4-5.0); Sodium 138 mmol/L (137-145)
[2025-03-20 16:56] LABS: Parathyroid Intact 28.7 pg/mL (14.5-75.2)
[2025-03-20 16:57] LABS: Total Protein Urine Random 10 mg/dL; Ur Ttl Prot Creatinine Ratio 0.23 mg/mg (0-0.20)
== END 2025-03-20 16:04 | disposition home or self-care (01) ==
LOC: ANHLAB 16:05
PROVIDERS: PCP Internal Medicine; Visit Provider Internal Medicine Nephrology
DX: I12.9 Hypertensive chronic kidney disease with stage 1 through stage 4 chronic kidney disease, or unspecified chronic kidney disease (principal); N18.31 Chronic kidney disease, stage 3a; N25.81 Secondary hyperparathyroidism of renal origin; E55.9 Vitamin D deficiency, unspecified
CPT/HCPCS: 36415; 80069; 82306; 82570; 83970; 84156

== ENCOUNTER 2025-07-09 13:23 | Outpatient (CLI) | payer MEDICARE, SELFPAY ==
[2025-07-09 14:31] LABS: Hemoglobin A1C 5.5 % (<5.7)
[2025-07-09 14:38] LABS: Alanine Aminotransferase 39 U/L (6-50); Albumin Level 4.4 g/dL (3.5-5.1); Alkaline Phosphatase 54 U/L (38-126); Anion Gap 8 mmol/L (4-12); Aspartate Amino Transferase 37 U/L (17-59); Bilirubin,Total 1.0 mg/dL (0.2-1.3); Blood Urea Nitrogen 22 mg/dL (9-20); Calcium 9.3 mg/dL (8.4-10.2); Carbon Dioxide 30 mmol/L (22-30); Chloride 100 mmol/L (98-107); Cholesterol 170 mg/dL (0-200); Estimated Glomerular Filt Rate 49; Glucose 101 mg/dL (65-110); HDL Direct 37 mg/dL; Potassium 4.1 mmol/L (3.4-5.0); Sodium 138 mmol/L (137-145); Total Protein 8.2 g/dL (6.3-8.2); Triglycerides 78 mg/dL (<150)
== END 2025-07-09 13:24 | disposition home or self-care (01) ==
PROVIDERS: PCP Internal Medicine; Visit Provider Internal Medicine
DX: E78.2 Mixed hyperlipidemia (principal); I12.9 Hypertensive chronic kidney disease with stage 1 through stage 4 chronic kidney disease, or unspecified chronic kidney disease; R73.03 Prediabetes; N18.9 Chronic kidney disease, unspecified
CPT/HCPCS: 36415; 80053; 80061; 83036

== ENCOUNTER 2025-07-20 10:14 | Outpatient (CLI) | payer MEDICARE, SELFPAY ==
[2025-07-20 12:24] LABS: Prostate Specific Antigen 3.2 ng/mL (< OR = 4.0)
== END 2025-07-20 10:15 | disposition home or self-care (01) ==
LOC: ANHLAB 10:14
PROVIDERS: PCP Internal Medicine; Visit Provider Internal Medicine
DX: Z12.5 Encounter for screening for malignant neoplasm of prostate (principal)
CPT/HCPCS: 36415; 84153; G0103